=== PATIENT | male | born 1980 | race Caucasian/White ===

== ENCOUNTER 2022-04-27 11:01 | Emergency (ER) | payer OTHER, SELFPAY ==
--- NOTE | ~2022-04-27 | CT_ITS ---
EXAMINATION: CT abdomen pelvis wo con DATE: 04/27/2022 11:58 INDICATION: Left flank pain. TECHNIQUE: Computed tomography (CT) of the abdomen and pelvis was performed without intravenous contr ast. Automated exposure control and iterative reconstruction technique were employed. The dose-length product was 309.31 mGy-cm. COMPARISON: CT abdomen and pelvis 03/21/2016 FINDINGS: The visualized portions of the lung bases are clear without pneumonia or pleural effusion. The heart size is normal. No pericardial effusion. The liver and gallbladder are normal. Calcificatio ns in the spleen are consistent with old granulomatous disease. The pancreas and adrenal glands are n ormal. Right kidney is normal. There is mild left hydronephrosis and hydroureter. There is asymmetric edema in left perinephric space. There is no urolithiasis. There is diverticulosis of the colon with out evidence of diverticulitis. The appendix is normal. There are no pathologically enlarged lymph no leilani. There is no free intraperitoneal fluid. There is mild lumbar spondylosis. IMPRESSION: 1. Mild left hydronephrosis and hydroureter. No urolithiasis. Reviewed, dictated and finalized at location A. SORTER
[2022-04-27 11:01] VITALS: BP 148/99; PULSE 79; RESP 16; TEMP 36.6; O2SAT 96
--- NOTE | 2022-04-27 11:17 | ED.ABDPAIN ---
HPI - Abdominal Pain General Chief Complaint: Urogenital-Male Stated Complaint: kidney stones Time Seen by Provider: 04/27/22 11:16 Source: patient History of Present Illness HPI narrative: 42-year-old male with a history of kidney stones presents to the ER with 6 hour history of -- left flank pain radiating to the left groin. Pain is colicky and comes on intermittently. No exacerbating or relieving factors. Nausea without any vomiting. No diarrhea. No fever MD elicited complaint: abdominal pain and flank pain Pertinent past history: kidney stones Onset (ago): hour(s) ( started 6 hours ago.) Pain Consistency: intermittent Location: L flank Severity: severe Quality: cramping Radiation: L flank Migration to: L flank ( Migrates to left groin) Exacerbating factors: nothing Relieving factors: nothing Related Data Home Medications Medication Instructions Recorded Confirmed No Home Medications 04/27/22 04/27/22 Allergies Allergy/AdvReac Type Severity Reaction Status Date / Time NKDA Allergy Mild Unknown Uncoded 04/27/22 11:14 Review of Systems Review of Systems: All systems reviewed & are unremarkable except as noted in HPI and below Constitutional: Constitutional: Reports as per HPI and Reports no additional constitutional complaints Eyes: Eyes: Reports as per HPI and Reports no additional eye complaints ENT: Reports system reviewed and no additional complaints, except as documented and Reports as per HPI Cardiovascular: Cardiovascular: Reports as per HPI and Reports no additional cardiovascular complaints Respiratory: Respiratory: Reports as per HPI and Reports no additional respiratory complaints Gastrointestinal: Gastrointestinal: Reports as per HPI and Reports no additional gastrointestinal complaints Genitourinary: Genitourinary: Reports no additional male genitourinary complaints and Reports as per HPI Comments: left flank pain Musculoskeletal: Musculoskeletal: Reports no additional musculoskeletal complaints and Reports as per HPI Integumentary/Breasts: Skin/Breast: Reports system reviewed and no additional complaints, except as docu and Reports as per HPI Neurologic: Reports system reviewed and no additional complaints, except as documented and Reports as per HPI Psychiatric: Psychiatric: Reports no additional psychiatric complaints and Reports as per HPI Endocrine: Endocrine: Reports no additional endocrine complaints and Reports as per HPI Hematologic/Lymphatic: Hematologic/Lymphatic: Reports no additional hematologic/lymphatic complaints and Reports as per HPI Allergic/Immunologic: Allergic/Immunologic: Reports no additional allergic/immunologic complaints and Reports as per HPI PMF Past Medical History Medical History Kidney stones Exam Const: General: healthy appearing and ill appearing Nutritional Appearance: well nourished Orientation/consciousness: patient oriented x3 Limitations: no limitations HENMT: Head: normal to inspection Ears: external ears normal Face/Nose/Sinus: Normal external nose present Face and sinus: normal facial exam Mouth: Yes Normal oral and palatal mucosa present Throat: posterior oropharynx normal Eyes: Conjunctivae: conjunctivae normal Pupils: Equal, round and reactive pupils present EOM: EOMs intact bilaterally Direct Ophthalmoscopy: no photophobia Neck: Neck: normal visual inspection, no lymphadenopathy and no meningeal signs Chest: Chest palpation & inspection: normal inspection of the chest Resp: Effort & Inspection: normal respiratory effort Auscultation: clear to auscultation bilaterally Cardio: Rate: regular rate Rhythm: regular rhythm GI: Auscultation: normal bowel sounds Rectal Exam: normal sphincter tone : General: Yes CVA tenderness Other: tenderness left flank. No rigidity /rebound. Back/Spine/Pelvis: Back: no CVA tenderness Skin: General skin exam: norm
[2022-04-27] MEDS: LACTATED RINGERS 1,000 ML 999 ML IV CONT (11:31)
[2022-04-27] MEDS: KETOROLAC 30 MG/ML VIAL (*BKC) IV PUSH (11:32)
[2022-04-27] MEDS: ONDANSETRON INJ 4 MG/2 ML VIAL IV PUSH (11:33)
[2022-04-27 11:37] LABS: Basophils Absolute Auto 0.08 K/mm3 (0.00-0.10); Basophils Percent Auto 0.6 % (0.0-1.0); Eosinophils Absolute Auto 0.19 K/mm3 (0.02-0.50); Eosinophils Percent Auto 1.3 % (1.0-6.0); Hematocrit 45.4 % (40.0-54.0); Hemoglobin 14.9 g/dL (14.0-18.0); Immature Granulocyte Absolute 0.05 K/mm3 (0.00-0.00); Immature Granulocyte Percent A 0.3 % (0.0-0.0); Lymphocytes Absolute Auto 1.55 K/mm3 (1.10-4.50); Lymphocytes Percent Auto 10.7 % (18.0-42.0); Mean Corpuscular HGB Conc 32.8 g/dL (32.0-36.0); Mean Corpuscular Hemoglobin 29.7 pg (27.0-31.0); Mean Corpuscular Volume 90.6 fL (78.0-102.0); Monocytes Absolute Auto 1.54 K/mm3 (0.10-0.90); Monocytes Percent Auto 10.7 % (2.0-11.0); Neutrophils Absolute Auto 11.1 K/mm3 (1.7-7.2); Neutrophils Percent Auto 76.4 % (50.0-70.0); Platelet Count Result 190 K/mm3 (150-420); Red Blood Count 5.01 M/mm3 (4.70-6.10); Red Cell Distribution Width 12.8 % (11.6-14.4); White Blood Count 14.5 K/mm3 (4.8-10.8)
[2022-04-27 11:39] LABS: Add Urine Microscopic? YES; Appearance Urine Clear (Clear); Bilirubin Urine 1+ (Negative); Blood Urine 3+ (Negative); Color Urine Red (Yellow); Glucose Urine UA Negative (Negative); Ketones Urine Negative (Negative); Leukocyte Esterase Ur Trace (Negative); Nitrate Urine Negative (Negative); Protein Urine 2+ (Negative); Urobilinogen Urine 0.2 mg/dL (0.2-1.0)
[2022-04-27 11:44] LABS: Bacteria Urine Trace /hpf; RBC Urine >75 /hpf (0-2); WBC Urine 0-3 /hpf (0-3)
--- NOTE | 2022-04-27 11:44 | PC.NURSE ---
PT IN CT AT THIS TIME
[2022-04-27 11:51] LABS: Partial Thromboplastin Time 31.2 SEC (23.90-30.70)
[2022-04-27 11:52] LABS: Alanine Aminotransferase 33 U/L (16-63); Albumin Level 3.8 g/dL (3.4-5.0); Alkaline Phosphatase 82 U/L (46-116); Anion Gap 7 mmol/L (8-16); Aspartate Amino Transferase 24 U/L (15-37); Bilirubin,Total 0.8 mg/dL (0.00-1.00); Blood Urea Nitrogen 19 mg/dL (7-18); Calcium 8.5 mg/dL (8.5-10.1); Carbon Dioxide 30 mmol/L (21-32); Chloride 104 mmol/L (98-108); Estimated CRCL calculation 67 ml/min; Estimated Glomerular Filt Rate > 60; Glucose 115 mg/dL (70-99); Lipase 63 U/L (73-393); Osmolality Calculated 295 mOsm/kg (285-295); Potassium 4.1 mmol/L (3.5-5.1); Sodium 141 mmol/L (136-145); Total Protein 7.6 g/dL (6.4-8.2)
--- NOTE | 2022-04-27 12:27 | PC.NURSE ---
PT REPORTS PAIN HAS GREATLY IMPROVED. NAD NOTED UPON REASSESSMENT. AT BEDSIDE. PT IS AWAITING RESULTS. WILL CONTINUE TO MONITOR.
[2022-04-27 12:40] VITALS: BP 132/85; PULSE 88; RESP 16; O2SAT 99
== END 2022-04-27 12:40 | disposition home or self-care (01) ==
PROVIDERS: Emergency Provider Internal Medicine Critical Care Medicine
DX: N20.0 Calculus of kidney (principal)
CPT/HCPCS: 36415; 74176; 80053; 81001; 83605; 83690; 85025; 85730; 96361; 96374; 96375; 99284; J1885; J2405; J7120

== ENCOUNTER 2023-03-07 19:36 | Emergency (ER) | payer OTHER, SELFPAY ==
--- NOTE | ~2023-03-07 | XR_ITS ---
EXAMINATION: XR chest 2V DATE: 03/07/2023 19:57 INDICATION: [place] weird. Hypertension. TECHNIQUE: Frontal and lateral views of the chest were obtained. COMPARISON: CT abdomen and pelvis 04/27/2022 FINDINGS: There is no pneumonia, pleural effusion, or pneumothorax. The heart size is normal. IMPRESSION: 1. No acute cardiopulmonary disease. Reviewed, dictated and finalized at location E.
[2023-03-07 19:41] VITALS: BP 160/111; PULSE 100; RESP 20; TEMP 37; O2SAT 98
--- NOTE | 2023-03-07 19:42 | ECG_ITS ---
Measurements Intervals [place] Rate: 98 P: -8 [place]: 162 QRS: 62 QRSD: 101 T: 36 QT: 360 QTc: 462 Interpretive Statements SINUS RHYTHM VOLTAGE CRITERIA FOR LVH [MEETS CRITERIA IN ONE OF: R(aVL), S(V1), R(V5), R(V5/V6)+S(V1)] NONSPECIFIC T-WAVE ABNORMALITY NO PREVIOUS ECG AVAILABLE FOR COMPARISON Electronically Signed On 03-08-2023 19:29:56 CDT by Zainab Smith M.D.
[2023-03-07 20:00] LABS: Basophils Absolute Auto 0.06 K/mm3 (0.00-0.10); Basophils Percent Auto 0.6 % (0.0-1.0); Eosinophils Absolute Auto 0.24 K/mm3 (0.02-0.50); Eosinophils Percent Auto 2.4 % (1.0-6.0); Immature Granulocyte Absolute 0.04 K/mm3 (0.00-0.00); Immature Granulocyte Percent A 0.4 % (0.0-0.0); Lymphocytes Absolute Auto 3.09 K/mm3 (1.10-4.50); Lymphocytes Percent Auto 30.6 % (18.0-42.0); Mean Corpuscular HGB Conc 33.3 g/dL (32.0-36.0); Mean Corpuscular Volume 89.9 fL (78.0-102.0); Mean Platelet Volume 9.3 fl (8.7-11.0); Monocytes Absolute Auto 1.19 K/mm3 (0.10-0.90); Monocytes Percent Auto 11.8 % (2.0-11.0); Neutrophils Absolute Auto 5.5 K/mm3 (1.7-7.2); Neutrophils Percent Auto 54.2 % (50.0-70.0); Platelet Count Result 196 K/mm3 (150-420); Red Blood Count 4.67 M/mm3 (4.70-6.10); Red Cell Distribution Width 13.2 % (11.6-14.4); White Blood Count 10.1 K/mm3 (4.8-10.8)
[2023-03-07] MEDS: cloNIDine HCL 0.1 MG TABLET PO (20:12)
[2023-03-07 20:19] LABS: Alanine Aminotransferase 31 U/L (16-63); Albumin Level 3.9 g/dL (3.4-5.0); Alkaline Phosphatase 67 U/L (46-116); Anion Gap 9 mmol/L (8-16); Aspartate Amino Transferase 20 U/L (15-37); Bilirubin,Total 0.5 mg/dL (0.00-1.00); Blood Urea Nitrogen 13 mg/dL (7-18); Calcium 8.9 mg/dL (8.5-10.1); Carbon Dioxide 26 mmol/L (21-32); Chloride 108 mmol/L (98-108); Estimated CRCL calculation 77 ml/min; Estimated Glomerular Filt Rate > 60; Glucose 120 mg/dL (70-99); Osmolality Calculated 297 mOsm/kg (285-295); Potassium 3.7 mmol/L (3.5-5.1); Sodium 143 mmol/L (136-145); Total Protein 7.3 g/dL (6.4-8.2); Troponin I 56.1 ng/L (0.00-60.4)
--- NOTE | 2023-03-07 20:19 | ED.GENADULT ---
HPI - General Adult General Chief complaint: Headache Stated complaint: High BP Source: patient Mode of arrival: ambulatory Limitations: no limitations History of Present Illness HPI narrative: patient is a 43-year-old male with headaches lately in the past couple weeks as well as some blurry vision. Patient has high blood pressure known but has not taken any medicine throughout his life. Patient started feeling uneasy this evening and flushed so he came to the ER for blood pressure medication. No chest pain or shortness of breath. Onset (ago): hour(s) Location: head and face Severity: mild Quality: other ( Flush) Pain Consistency: constant Relieving factors: none Exacerbating factors: none Associated symptoms: headaches Treatments prior to arrival: none Related Data Allergies Allergy/AdvReac Type Severity Reaction Status Date / Time NKDA Allergy Mild Unknown Uncoded 04/27/22 11:14 Review of Systems Review of Systems: All systems reviewed & are unremarkable except as noted in HPI and below Constitutional: Constitutional: Reports no additional constitutional complaints Eyes: Eyes: Reports no additional eye complaints ENT: Reports system reviewed and no additional complaints, except as documented Cardiovascular: Cardiovascular: Reports no additional cardiovascular complaints Respiratory: Respiratory: Reports no additional respiratory complaints Gastrointestinal: Gastrointestinal: Reports no additional gastrointestinal complaints Genitourinary: Genitourinary: Reports no additional male genitourinary complaints Musculoskeletal: Musculoskeletal: Reports no additional musculoskeletal complaints Integumentary/Breasts: Skin/Breast: Reports system reviewed and no additional complaints, except as docu Neurologic: Reports system reviewed and no additional complaints, except as documented Psychiatric: Psychiatric: Reports no additional psychiatric complaints Endocrine: Endocrine: Reports no additional endocrine complaints Hematologic/Lymphatic: Hematologic/Lymphatic: Reports no additional hematologic/lymphatic complaints Allergic/Immunologic: Allergic/Immunologic: Reports no additional allergic/immunologic complaints [facility] Past Medical History Medical History Kidney stones Exam Const: General: cooperative, healthy appearing and comfortable HENMT: Head: normal to inspection, No palpable skull fracture present and normocephalic Eyes: General: appearance normal, both eyes and all related structures Visual De Paz: normal visual de paz by confrontation Alignment and Position: alignment normal Chest: Chest palpation & inspection: normal inspection of the chest and normal palpation of entire chest wall Resp: Effort & Inspection: normal respiratory effort and able to speak in complete sentences Auscultation: clear to auscultation bilaterally Cardio: Jugular venous distension: no JVD Palpation: normal PMI Rate: regular rate Rhythm: regular rhythm Heart sounds: S1 normal heart sound present and S2 normal heart sound present GI: Inspection: normal to inspection GI Palp: No abdominal tenderness, No Abdominal aortic bruit present, Yes Soft to palpation, No Firmness to palpation present (GI) and No Tenderness to palpation present (GI) Back/Spine/Pelvis: Back: no CVA tenderness Skin: General skin exam: normal color, no rashes or lesions noted and elasticity normal Neuro: General: oriented to person, oriented to place, oriented to time, patient oriented x3, gait normal, tone normal, moves all extremities, Normal light touch and pain sensation, no meningeal signs, no focal motor deficits, CN's II-XI intact bilaterally and normal sensation to monofilament Extrem: General: normal to inspection, full ROM and capillary refill normal Psych: Appearance: grossly normal and well kempt Mental Status: mental status grossly normal Speech and movement: Normal speech and
[2023-03-07 20:22] VITALS: BP 160/108; PULSE 100; RESP 20; TEMP 37; O2SAT 96
[2023-03-07 20:50] VITALS: BP 140/100; PULSE 90; RESP 20; O2SAT 96
[2023-03-07 21:15] VITALS: BP 140/90; PULSE 80; RESP 20; O2SAT 98
== END 2023-03-07 21:39 | disposition left against medical advice (07) ==
PROVIDERS: Emergency Provider Emergency Medicine
DX: I10 Essential (primary) hypertension (principal)
CPT/HCPCS: 36415; 71046; 80053; 84484; 85025; 93005; 99284; A9270

== ENCOUNTER 2023-04-11 14:28 | Emergency (ER) | payer OTHER, SELFPAY ==
[2023-04-11 14:28] VITALS: BP 140/98; PULSE 60; RESP 16; TEMP 35.8; O2SAT 99
[2023-04-11] MEDS: TETANUS,DIPHTHERIA,AC PERTUSSIS ADULT 0.5 ML (ADACEL) IM (14:59)
--- NOTE | 2023-04-11 15:21 | ED.WOUNDLAC ---
HPI - Wound/Laceration General Chief Complaint: Wound/Laceration Stated Complaint: right arm laceration Time Seen by Provider: 04/11/23 14:47 Source: patient Mode of arrival: ambulatory Limitations: no limitations History of Present Illness HPI narrative: PATIENT WAS ABOUT TO FALL AND TRIED TO CATCH HIMSELF, LACERATED THE BACK OF THE RIGHT ARM ON THE GO-DAUGHTER. NO OTHER INJURIES. PATIENT DID NOT FALL TO THE GROUND. UNKNOWN LAST TETANUS. PATIENT DROVE HIMSELF TO THE EMERGENCY ROOM Related Data Home Medications Medication Instructions Recorded Confirmed No Home Medications 04/11/23 04/11/23 Allergies Allergy/AdvReac Type Severity Reaction Status Date / Time NKDA Allergy Mild Unknown Uncoded 04/11/23 14:47 Review of Systems Review of Systems: All systems reviewed & are unremarkable except as noted in HPI and below PMFSH Past Medical History Medical History Kidney stones Exam Narrative: General appearance: Well-developed, well-nourished Skin: Normal color, 3.5 cm laceration subcutaneous at the back of the right arm. Head: Normocephalic, nontraumatic Eyes: Clear conjunctiva ENT: Oropharynx normal, ears normal, nose normal Neck: Supple, nontender Chest and respiratory: Airway patent, no respiratory distress, no accessory muscle use Heart: Regular rate/rhythm Vascular: Normal peripheral pulses, normal capillary refill. Musculoskeletal: Normal range of motion, nontender back Neurologic: Alert and oriented ?3, REACTOR SERVICE OPERATOR is normal as tested, no gross motor deficit Course Vital Signs Vital signs: Vital Signs Temperature 35.8 C L 04/11/23 14:28 Pulse Rate 60 04/11/23 14:28 Respiratory Rate 16 04/11/23 14:28 Blood Pressure 140/98 H 04/11/23 14:28 Pulse Oximetry 99 04/11/23 14:28 Oxygen Delivery Room Air 04/11/23 14:28 Temperature 35.8 C L 04/11/23 14:28 Pulse Rate 60 04/11/23 14:28 Respiratory Rate 16 04/11/23 14:28 Blood Pressure 140/98 H 04/11/23 14:28 Pulse Oximetry 99 04/11/23 14:28 Oxygen Delivery Room Air 04/11/23 14:28 Procedures Laceration Laceration 1: Date: 04/11/23 Time: 12:38 Site: upper extremity Side (If applicable): right Size (cm): 3.5 Description: linear and clean Depth: simple, single layer Local Anesthetic: none Pre-repair: wound explored and irrigated ====== Skin Level ====== Skin layer closed with: alessia (4 alessia) ====== Subcutaneous Layer ====== ====== Muscle Layer ====== ====== Tendon Layer ====== Dressing: Topical Neosporin, patient tolerated the procedure well Discharge Plan Discharge Clinical Impression: Laceration of right upper arm Patient Disposition: Home, Self-Care Condition: Stable Instructions: Laceration (ED) Additional Instructions: RETURN IF SYMPTOMS ARE WORSENING , CALL YOUR FAMILY PHYSICIAN FOR APPOINTMENT, TAKE TYLENOL NEEDED FOR ACHES AND PAIN, CONTINUE HOME MEDICATIONS., REMOVED THE ALESSIA IN 10 DAYS, TOPICAL NEOSPORIN T.I.D. 48 HOURS Prescriptions: No Action No Home Medications Follow-up/Referrals: UNKNOWN,DOCTOR [Primary Care Provider] - Herrera Curry, RN [Emergency Nurse] - 04/14/23
== END 2023-04-11 15:30 | disposition home or self-care (01) ==
PROVIDERS: Emergency Provider Emergency Medicine
DX: S41.111A Laceration without foreign body of right upper arm, initial encounter (principal); W01.10XA Fall on same level from slipping, tripping and stumbling with subsequent striking against unspecified object, initial encounter; Z23 Encounter for immunization
CPT/HCPCS: 12002; 90471; 90715; 99282

== ENCOUNTER 2024-05-06 14:00 | Emergency (ER) | payer OTHER, SELFPAY ==
[2024-05-06] VITALS (26 sets, daily range): BP systolic 127–161; BP diastolic 89–119; PULSE 81–110; RESP 16–26; TEMP 36.2–37; O2SAT 97–100
--- NOTE | ~2024-05-06 | XR_ITS ---
EXAMINATION: XR shoulder LT min 2V DATE: 05/06/2024 14:36 INDICATION: Left shoulder pain. TECHNIQUE: 4 views of left shoulder were obtained. COMPARISON: None. FINDINGS: Alignment is normal. No fracture. There is mild osteoarthritis of the acromioclavicular huyen nt. Glenohumeral joint is normal. IMPRESSION: 1. Mild acromioclavicular joint osteoarthritis. Reviewed, dictated and finalized at location A. 4TH GRADE MATH TEACHER
--- NOTE | ~2024-05-06 | CT_ITS ---
EXAMINATION: CTA chest PE protocol DATE: 05/06/2024 15:54 INDICATION: Shortness of breath. Pulmonary embolism. TECHNIQUE: Computed tomography angiography (CTA) of the chest was performed with 100 mL Omnipaque-350 intravenous contrast timed to evaluate the pulmonary arteries. Coronal maximum intensity projection 3D-reconstructions were created by the technologist. Automated exposure control and iterative reconst ruction technique were employed. The dose-length product was 567.82 mGy-cm. COMPARISON: None. FINDINGS: The lungs demonstrate smooth septal thickening, consistent with mild pulmonary edema. There is a small right pleural effusion. Cardiomegaly is noted. There is a trace pericardial effusion. The re is a left-sided superior vena cava. There is no pulmonary embolus. Calcified mediastinal lymph nod es are consistent with old granulomatous disease. There is mild thoracic spondylosis. IMPRESSION: 1. No pulmonary embolus. 2. Mild pulmonary edema. 3. Small right pleural effusion. 4. Cardiomegaly. Reviewed, dictated and finalized at location A. UM REGISTRAR
--- NOTE | ~2024-05-06 | XR_ITS ---
EXAMINATION: XR chest 1V portable DATE: 05/06/2024 14:36 INDICATION: Shortness of breath. TECHNIQUE: A single frontal view of the chest was obtained. COMPARISON: Chest 2 views 03/07/2023, CT abdomen and pelvis 04/27/2022 FINDINGS: There is mild atelectasis at right lung base. No pleural effusion or pneumothorax. Cardiome otf is noted. IMPRESSION: 1. Mild atelectasis at right lung base. 2. Cardiomegaly. Reviewed, dictated and finalized at location A. RMATION SERVICES ASSISTANT
--- NOTE | 2024-05-06 14:11 | ED_ITS ---
HPI - General Adult General Chief complaint: Shortness of Breath/Dyspnea Stated complaint: shortness of breathe Time Seen by Provider: 05/06/24 14:10 Source: patient and family Mode of arrival: ambulatory History of Present Illness HPI narrative: 44 years old white male came to the emergency room by private car complaining of shortness of breath over the last 3 weeks, worse with exertion and at night before going to sleep. Patient feels like a rock in side he chest, patient is telling me that he is badly depressed lately he lost a job 1 month ago, also complaining of left shoulder discomfort for longer than 3 weeks. He denies any fever or chills or nausea or vomiting or upper respiratory symptoms. Patient does not take medicine at home, smokes cigarettes over 30 years, uses marijuana, does not drink alcohol. Patient denies family history of coronary artery disease, Last time was seen by a family physician years ago. Related Data Home Medications Medication Instructions Recorded Confirmed No Home Medications 04/11/23 05/06/24 Allergies Allergy/AdvReac Type Severity Reaction Status Date / Time NKDA Allergy Mild Unknown Uncoded 05/06/24 15:00 Review of Systems Review of Systems: All systems reviewed & are unremarkable except as noted in HPI and below PMFSH Past Medical History Medical History Kidney stones Exam Narrative: General appearance: Well-developed, well-nourished Skin: Normal color Head: Normocephalic, nontraumatic Eyes: Clear conjunctiva ENT: Oropharynx normal, ears normal, nose normal Neck: Supple, nontender Chest and respiratory: Airway patent, no respiratory distress, no accessory muscle use Heart: Regular rate/rhythm Abdomen: Soft, nontender, no organomegaly, quiet bowel sounds Vascular: Normal peripheral pulses, normal capillary refill. Musculoskeletal: Normal range of motion, nontender back Neurologic: Alert and oriented ?3, DATASTAGE ARCHITECT is normal as tested, no gross motor deficit Course Vital Signs Vital signs: Vital Signs Pulse Oximetry 100 05/06/24 14:00 Oxygen Delivery Room Air 05/06/24 14:00 Temperature 36.2 C L 05/06/24 14:01 Pulse Rate 109 H 05/06/24 14:01 Respiratory Rate 22 H 05/06/24 14:01 Blood Pressure 161/111 H 05/06/24 14:01 Pulse Oximetry 100 05/06/24 14:01 Oxygen Delivery Room Air 05/06/24 14:01 Medical Decision Making MDM Narrative Medical decision making narrative: patient came to the ED with shortness of breath on exertion for the last 3 weeks, left shoulder pain, intermittent chest discomfort. also complaining of severe depression lately of losing his job 1 month ago Vital signs showing blood pressure 161/111, heart rate 109, respiration 22, saturation 100% on room air Physical examination showing anxious patient otherwise insignificant Differential diagnosis include depression, pneumonia, congestive heart failure, coronary artery disease, pulmonary embolism, stress related symptoms Blood workup today showed D-dimer of 0.82, glucose 145, troponin 87.4, BNP 4286 EKG showed normal sinus rhythm with nonspecific ST T-wave abnormalities, LVH criteria Chest x-ray showed no acute abnormality, left shoulder x-ray showed no acute abnormalities Differential Diagnosis Differential Diagnosis: as above Vital Signs Vital Signs: Vital Signs Pulse Oximetry 100 05/06/24 14:00 Oxygen Delivery Room Air 05/06/24 14:00 Temperature 36.2 C L 05/06/24 14:01 Pulse Rate 109 H 05/06/24 14:01 Respiratory Rate 22 H 05/06/24 14:01 Blood Pressure 161/111 H 05/06/24 14:01 Pulse Oximetry 100 05/06/24 14:01 Oxygen Delivery Room Air 05/06/24 14:01 Lab Data 05/06/24 14:34 05/06/24 14:34 Labs: Lab Results 05/06/24 Range/Units 14:34 WBC 10.3 (4.8-10.8) K/mm3 RBC 5.17 (4.70-6.10) M/mm3 Hgb 15.3 (14.0-18.0) g/dL Hct 46.2 (40.0-54.0) % MCV 89.4 (78.0-102.0) fL MCH 29.6 (27.0-31.0) pg MCHC 33.1 (32-36) g/dL RDW 13.8 (11.6-14.4) % Plt Count 208 (150-420) K/mm3 MPV 9.2 (8.7-11.0) fl Immature Gran % (Auto) 0.4 H (0.0-0.0) % Neut % (Auto) 65.6 (50.0-70.0) % Lymph % (Auto) 22.8 (18.0-42.0) % [place] % (Auto) 8.6 (2.0-11.0) % Eos % (Auto) 2.0 (1.0-6.0) % Baso % (Auto) 0.6 (0.0-1.0) % Lymph # (Auto) 2.35 (1.10-4.50) K/mm3 [place] # (Auto) 0.89 (0.10-0.90) K/mm3 Eos # (Auto) 0.21 (0.02-0.50) K/mm3 Baso # (Auto) 0.06 (0.00-0.10) K/mm3 Abs Immat Gran (auto) 0.04 H (0.00-0.00) K/mm3 Absolute Neuts (auto) 6.74 (1.70-7.20) K/mm3 Absolute Nucleated RBC 0.00 (0.00-0.00) K/mm3 Nucleated RBC % 0.0 (0-0.0) % PT 12.0 (9.50-12.1) Seconds INR 1.1 APTT 27.5 (23.9-30.70) Sec D-Dimer 0.82 H* (0.19-0.50) mg/L Sodium 139 (136-145) mmol/L Potassium 4.2 (3.5-5.1) mmol/L Chloride 104 (98-108) mmol/L Carbon Dioxide 30 (21-32) mmol/L Anion Gap 5 (4-12) mmol/L BUN 18 (7-18) mg/dL Creatinine 1.26 (0.70-1.30) mg/dL Estim Creat Clear Calc 76 ml/min Estimated GFR > 60 (59 - ) Glucose 145 H (70-99) mg/dL Calculated Osmolality 292 (285-295) mOsm/kg Calcium 9.0 (8.5-10.1) mg/dL Total Bilirubin 0.9 (0.00-1.00) mg/dL AST 19 (15-37) U/L ALT 29 (16-63) U/L Alkaline Phosphatase 86 (46-116) U/L Troponin I 87.4 H* (0.00-60.4) ng/L NT-Pro-B Natriuret Pep 4286 H (0-125) pg/mL Total Protein 7.5 (6.4-8.2) g/dL Albumin 3.6 (3.4-5.0) g/dL Imaging Data Radiologist's impression: Impressions Chest X-Ray 05/06/24 14:37 IMPRESSION: 1. Mild atelectasis at right lung base. 2. Cardiomegaly. Shoulder X-Ray 05/06/24 14:38 IMPRESSION: 1. Mild acromioclavicular joint osteoarthritis. ECG Data EKG #1: Attestation: I personally reviewed and interpreted this ECG as follows: ECG completion date: 05/06/24 Interpretation: Sinus tachycardia at 103 beats per minute, left atrial enlargement, nonspecific ST T-wave abnormality, poor R-wave progression indeterminate septal infarction, LVH criteria Discharge Plan Discharge Clinical Impression: Non-STEMI (non-ST elevated myocardial infarction) Patient Disposition: Acute Care Hospital Condition: Stable Prescriptions: No Action No Home Medications Follow-up/Referrals: UNKNOWN,DOCTOR [Primary Care Provider] -
--- NOTE | 2024-05-06 14:21 | ECG_ITS ---
Test Date: 2024-05-06 14:37:37 Measurements Intervals [place] Rate: 103 P: 24 [place]: 148 QRS: 86 QRSD: 110 T: -21 QT: 366 QTc: 480 Interpretive Statements SINUS TACHYCARDIA POSSIBLE LEFT ATRIAL ENLARGEMENT [-0.1mV P-WAVE IN V1/V2] NONSPECIFIC ST & T-WAVE ABNORMALITY No previous ECG available for comparison Electronically Signed On 05-07-2024 14:56:46 VETERINARY RECEPTIONIST by Bettina Suarez M.D.
[2024-05-06 14:41] LABS: Basophils Absolute Auto 0.06 K/mm3 (0.00-0.10); Basophils Percent Auto 0.6 % (0.0-1.0); Eosinophils Absolute Auto 0.21 K/mm3 (0.02-0.50); Hematocrit 46.2 % (40.0-54.0); Hemoglobin 15.3 g/dL (14.0-18.0); Immature Granulocyte Absolute 0.04 K/mm3 (0.00-0.00); Immature Granulocyte Percent A 0.4 % (0.0-0.0); Lymphocytes Absolute Auto 2.35 K/mm3 (1.10-4.50); Lymphocytes Percent Auto 22.8 % (18.0-42.0); Mean Corpuscular HGB Conc 33.1 g/dL (32-36); Mean Corpuscular Hemoglobin 29.6 pg (27.0-31.0); Mean Corpuscular Volume 89.4 fL (78.0-102.0); Mean Platelet Volume 9.2 fl (8.7-11.0); Monocytes Absolute Auto 0.89 K/mm3 (0.10-0.90); Monocytes Percent Auto 8.6 % (2.0-11.0); Neutrophils Absolute Auto 6.74 K/mm3 (1.70-7.20); Neutrophils Percent Auto 65.6 % (50.0-70.0); Platelet Count Result 208 K/mm3 (150-420); Red Blood Count 5.17 M/mm3 (4.70-6.10); Red Cell Distribution Width 13.8 % (11.6-14.4); White Blood Count 10.3 K/mm3 (4.8-10.8)
[2024-05-06 14:56] LABS: INR 1.1; Partial Thromboplastin Time 27.5 Sec (23.9-30.70)
[2024-05-06 14:58] LABS: D Dimer 0.82 mg/L (0.19-0.50)
[2024-05-06 15:05] LABS: Alanine Aminotransferase 29 U/L (16-63); Albumin Level 3.6 g/dL (3.4-5.0); Alkaline Phosphatase 86 U/L (46-116); Anion Gap 5 mmol/L (4-12); Aspartate Amino Transferase 19 U/L (15-37); Bilirubin,Total 0.9 mg/dL (0.00-1.00); Blood Urea Nitrogen 18 mg/dL (7-18); Carbon Dioxide 30 mmol/L (21-32); Chloride 104 mmol/L (98-108); Estimated CRCL calculation 76 ml/min; Estimated Glomerular Filt Rate > 60; Glucose 145 mg/dL (70-99); NT Pro B Type Natriuretic Pept 4286 pg/mL (0-125); Osmolality Calculated 292 mOsm/kg (285-295); Potassium 4.2 mmol/L (3.5-5.1); Sodium 139 mmol/L (136-145); Total Protein 7.5 g/dL (6.4-8.2)
[2024-05-06 15:06] LABS: Troponin I 87.4 ng/L (0.00-60.4)
[2024-05-06] MEDS: ASPIRIN 81 MG CHEWABLE TABLET 324 MG PO (15:27)
[2024-05-06] MEDS: METOPROLOL TARTRATE INJ 5 MG/5 ML VIAL IV PUSH ×2 (15:30→16:17)
== END 2024-05-06 18:00 | disposition short-term general hospital (02) ==
PROVIDERS: Emergency Provider Emergency Medicine
DX: I21.4 Non-ST elevation (NSTEMI) myocardial infarction (principal)
CPT/HCPCS: 36415; 71045; 71275; 73030; 80053; 83880; 84484; 85025; 85380; 85610; 85730; 93005; 96374; 96376; 99285; A9270; Q9967

== ENCOUNTER 2024-05-06 19:19 | Inpatient (IN) | payer SELFPAY ==
--- NOTE | ~2024-05-06 | NM_ITS ---
EXAMINATION: NM jenny stress w perfusion DATE: 05/07/2024 13:59 INDICATION: Chest pain. TECHNIQUE: Rest images were obtained following intravenous administration of 10 mCi Tc99m tetrofosmin (Myoview). The patient was infused intravenously with Lexiscan (regadenoson). Then, 31.7 mCi Tc99m t etrofosmin (Myoview) was administered intravenously, and supine and prone stress images were obtained . Data was reconstructed into short axis and horizontal and vertical long axis SPECT images. Gated SP ECT images were also obtained. COMPARISON: None. FINDINGS: There is a small, mild, fixed perfusion defect involving apical to mid inferior wall of lef t ventricle, consistent with infarct. No reversible component to suggest ischemia. There is global hy pokinesis.. Left ventricular ejection fraction measures 24%. IMPRESSION: 1. Small area of mild infarct involving apical to mid inferior wall of left ventricle. 2. Global hypokinesis with left ventricular ejection fraction measuring 24%. Reviewed, dictated and finalized at location A. CTOR OF CONSUMER AFFAIRS IMPRESSION: 1. Small area of mild infarct involving apical to mid inferior wall of left abdulaziz tricle. 2. Global hypokinesis with left ventricular ejection fraction measuring 24%.
[2024-05-06 18:35] VITALS: BP 129/95; PULSE 75; RESP 18; TEMP 36.6; O2SAT 100
[2024-05-06 18:48] VITALS: BMI 30.5
--- NOTE | 2024-05-06 18:48 | ADMGEN ---
This patient, Salvador Weeks, was admitted to IMU Room 200-01 on 04/06/24 at 1835. Patient/family oriented to hospital policies and general routines including ID bracelet, bed and alarms, visiting hours, pain management, procedures, bathroom and other care routines, personal items, smoking policy, room service/diet, and visiting hours. Information on how to activate the Rapid Response Team has been discussed. Patient/Family are encouraged to report perceived risks to care and to ask questions if they do not understand what they are told or what they should do.
--- NOTE | 2024-05-06 19:19 | P.HP_ITS ---
H&P: HPI History of Present Illness Date/Time: 05/06/24 19:19 Chief Complaint: Shortness of Breath Narrative: 44 y/o M presents here with shortness of breath with PMH of kidney stones, previous substance abuse (meth, heroin, Xanax), seizure secondary to Xanax abuse in 2013, and hypertension. The patient presented to [place] ED from home for further evaluation of shortness of breath. He reports onset approximately 3 weeks ago. Shortness of breath is primarily occurring when he tries to go to sleep (could be upright or laying flat) and with exertion (example given was walking out to his truck and back). Shortness of breath was precipitated by 3 weeks of left shoulder discomfort that he described as achy, worsened with movement, and nonradiating. He is also experiencing some associated chest discomfort with the shortness of breath which he developed a few days ago, has primarily had only one severe episode. He describes this as elephant sitting on his chest , lasted 20 minutes, nonradiating, occurred with severe shortness of breath, and was alleviated with walking around. Patient did not trial any home medications for the symptoms. Patient is also reporting that he has been more fatigued, unsure if this is related to depression related to a recent loss of his job or related to whatever is causing the shortness of breath. He has also reported 10 lbs of weight gain in the last month. He is currently a smoker for the past 30 years, 1 PPD. Endorsing marijuana use and has had some meth use (PO) in the last month. Was using the meth to help resolve his shortness of breath. Denies alcohol use. Denies any personal history or family history of coronary artery disease. The patient has known hypertension for which he has never taken medication for this despite his diagnosis. Does not follow regularly with a primary care provider. Initial VS at presentation: 97.1, HR 109, RR 22, 161/111, and 100% on RA. ED workup showed: No leukocytosis, no anemia, normal coags, elevated D-dimer, creatinine 1.26 and GFR >60, glucose 145, high sensitivity troponin 87.4, BNP 4286. CXR showed mild atelectasis at the right lung base and cardiomegaly. Shoulder XR (L) showed mild acromioclavicular joint osteoarthritis. Chest CTA showed no PE, mild pulmonary edema, small right pleural effusion, and cardiomegaly. Review of Systems Review of Systems: All systems reviewed & are unremarkable except as noted in HPI and below [facility] Past Medical History Medical History (Updated 05/06/24 @ 22:42 by Maddy Rankin APRN) Hypertension Kidney stones 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, 2014 Substance abuse previous methamphetamine, heroin, and Xanax abuse/use Family History Family History Mother Acute myocardial infarction Social History Social History Smoking packs per day: 0.5 Smoking cigarettes per day: 10.0 Years smoked: 30 Smoking pack-years: 15.00 Smoking status: Current every day smoker Tobacco type: cigarettes Second hand tobacco smoke exposure: Yes Meds Home Medications and Allergies Home Medications Medication Instructions Recorded Confirmed Type No Home Medications 04/11/23 05/06/24 History Allergies Allergy/AdvReac Type Severity Reaction Status Date / Time NKDA Allergy Mild Unknown Uncoded 05/06/24 17:27 Exam Const: General: comfortable and no acute distress Other: , male, nontoxic appearance HENMT: Face/Nose/Sinus: Normal nares present Mouth: Yes moist mucous membranes Other: Poor dentition Eyes: General: appearance normal, both eyes and all related structures Sclera: sclerae normal Pupils: Equal, round and reactive pupils present EOM: EOMs intact bilaterally Resp: Effort & Inspection: normal respiratory effort Auscultation: clear to auscultation bilaterally Cardio: Rate: regular rate Rhythm: regular rhythm Other: S1-S2 present without murmur, rub, ectopy GI: Other: Abdomen soft, rounded, nontender. Normoactive bowel sounds in all quadrants. Skin: General skin exam: normal color and no rashes or lesions noted Wounds: no wounds Neuro: General: gait normal Speech: normal speech Motor exam (neuro): 5/5 motor strength present throughout Sensory Exam: normal sensation Other: A&O x4 Extrem: General: normal to inspection Psych: Mental Status: mental status grossly normal Affect: normal affect Other: Good insight and judgment, pleasant Assessment and Plan Assessment and plan (1) Non-STEMI (non-ST elevated myocardial infarction): Code(s): I21.4 - Non-ST elevation (NSTEMI) myocardial infarction Status: Acute Assessment and Plan: - EKG, initial: Sinus tachycardia (rate 103), possible left atrial enlargement, nonspecific ST and T-wave abnormality. Awaiting formal read. - repeat EKG with 3 are troponin ordered - CXR: Mild atelectasis at the right lung base and cardiomegaly - Troponin: 87.4 (high sensitivity) -> 0.039, 3rd troponin ordered - ASA 324 given in ED -> 81 mg daily - SL nitro PRN - start metoprolol tartrate 25 mg PO BID - cardiology consulted, awaiting recs - add lipid panel and A1c - no stress test or echo on file - telemetry monitoring (2) CHF (congestive heart failure): Qualifiers: Heart failure chronicity: acute Heart failure type: unspecified Qualified Code(s): I50.9 - Heart failure, unspecified Code(s): I50.9 - Heart failure, unspecified Status: Suspected Assessment and Plan: - chest CTA: 1. No pulmonary embolus. 2. Mild pulmonary edema. 3. Small right pleural effusion. 4. Cardiomegaly. - BNP 4286 - no echo on file, ordered - started on Lasix 40 mg IVP daily - monitor I&Os and daily weights - trend renal function - suspect shortness of breath is secondary to mild pulmonary edema/volume overload (3) Hypertension: Qualifiers: Hypertension type: unspecified Qualified Code(s): I10 - Essential (primary) hypertension Code(s): I10 - Essential (primary) hypertension Status: Acute Assessment and Plan: - chronic, but has been off medication for some time - hydralazine 10 mg IVP p.r.n. for BP greater than 180/90 - start metoprolol tartrate 25 mg b.i.d. - cardiology consulted - monitor (4) Elevated glucose: Code(s): R73.09 - Other abnormal glucose Status: Acute Assessment and Plan: - initial glucose 145 - A1c added Plan Diet: Heart healthy, NPO at midnight GI Prophylaxis: Not currently indicated DVT Prophylaxis: SCDs Lines: Peripheral Code Status: Full code Quality VTE Prophylaxis VTE prophylaxis: mechanical ordered Hospitalist MIPS Advance Care Plan I have confirmed that the patient's Advanced Care Plan is present, code status is documented, or surrogate decision maker is listed in patient medical record.: Yes Medication Reconciliation I have utilized all available resources to obtain, update and review the patients current medications (includes all prescriptions, OTC, herbals, cannabis, and nutritional supplements).: Yes
[2024-05-06 19:27] VITALS: BMI 30.4
--- NOTE | 2024-05-06 19:40 | ECG_ITS ---
Test Date: 2024-05-06 20:08:08 Measurements Intervals [place] Rate: 85 P: -4 ME: 188 QRS: 39 QRSD: 108 T: 25 QT: 405 QTc: 483 Interpretive Statements SINUS RHYTHM POSSIBLE LEFT ATRIAL ENLARGEMENT SEPTAL MYOCARDIAL INFARCTION [40+ ms Q WAVE IN V1/V2], OF INDETERMINATE AGE NONSPECIFIC ST & T-WAVE ABNORMALITY Compared to ECG 05/06/2024 14:37:37 NO SIGNIFICANT CHANGES Electronically Signed On 05-07-2024 15:10:10 INTERNAL AFFAIRS COMMANDER by Bettina Suarez M.D.
[2024-05-06 20:00] VITALS: PULSE 89
[2024-05-06 20:44] VITALS: BP 138/83; PULSE 89; RESP 18; TEMP 36.5; O2SAT 100
[2024-05-06 21:10] VITALS: PULSE 91
[2024-05-06] MEDS: METOPROLOL TARTRATE 25 MG TABLET PO (21:10)
[2024-05-06] MEDS: FUROSEMIDE INJ 40 MG/4 ML VIAL IV PUSH (21:10)
[2024-05-06 21:28] LABS: Troponin I 0.039 ng/mL (0.000-0.034)
[2024-05-06 22:00] VITALS: PULSE 88
[2024-05-06 23:23] LABS: Amphetamine Screen Urine Positive (Negative); Barbiturate Screen Urine Negative (Negative); Benzodiazepines Screen Urine Negative (Negative); Cannabinoid Screen Urine Negative (Negative); Cocaine Screen Urine Negative (Negative); Methadone Screen Urine Negative (Negative); Opiate Screen Urine Negative (Negative); Phencyclidine Screen Urine Negative (Negative)
[2024-05-06 23:31] LABS: Troponin I 0.034 ng/mL (0.000-0.034)
[2024-05-06 23:47] VITALS: BP 146/90; PULSE 87; RESP 18; TEMP 36.5; O2SAT 98
[2024-05-06] MEDS: NICOTINE (*PBKC) 14 MG PATCH 1 PATCH TRANSDERM (23:49)
[2024-05-07] VITALS (16 sets, daily range): BP systolic 120–137; BP diastolic 73–93; PULSE 84–93; RESP 16–24; TEMP 36.5–36.7; O2SAT 95–98
--- NOTE | 2024-05-07 | ECHO_ITS ---
Patient Info Name: Salvador Weeks Age: 44 years : 1980 Gender: Male Ht: 69 in Wt: 207 lbs BSA: 2.16 m2 HR: 85 bpm BP: 137 / 85 mmHg Technical Quality: Poor, Fair Exam Date: 05/07/2024 8:53 AM Exam Location: Echo Lab Patient Status: Outpatient Admit Date: 05/06/2024 Staff Ordering Physician: Maddy Rankin APRN Conservation Policy Analyst: Helene Gonzales RDCS Attending Provider: Igor Barker MD Referring Physician: Massiel PATRICIA; Exam Type: CA echo dop color flow w con Study Info Indications - SOB, ELEVATED BNP Complete two-dimensional, color flow and Doppler transthoracic echocardiogram is performed with contrast to opacify the left ventricle and to improve the deliniation of the left ventricle endocardial borders. Contrast/Agitated Saline Contrast/Ag. Saline: Definity Amount: 2.00 ml Existing IV Access: Yes Reason for Poor Study: poor echocardiographic windows Summary 1. Left ventricular chamber dimension is severely enlarged. 2. There is moderate concentric increased left ventricular wall thickness. 3. Left ventricular systolic function is severely globally reduced, estimated at <15%. 4. The left ventricular diastolic function is abnormal. 5. E/e' 16 is elevated. 6. Right ventricular systolic function is reduced based on abnormal TAPSE 1.1 cm. 7. Left atrial chamber dimension is severely enlarged. 8. Right atrial chamber dimension is mildly enlarged. 9. The aortic root size at the sinus of Valsalva is borderline dilated at 4.1 cm. 10. Dilated inferior vena cava with >50% collapse upon inspiration consistent with elevated right atrial pressure, 10 mmHg. 11. There is trivial pericardial effusion. Left Ventricle Left ventricular systolic function is severely globally reduced, estimated at <15%. Left ventricular chamber dimension is severely enlarged. There is moderate concentric increased left ventricular wall thickness. The left ventricular diastolic function is abnormal. E/e' 16 is elevated. Right Ventricle Right ventricular systolic function is reduced based on abnormal TAPSE 1.1 cm. Right ventricular chamber dimension is not well visualized. Left Atria Left atrial chamber dimension is severely enlarged. Right Atria Right atrial chamber dimension is mildly enlarged. Aortic Valve The aortic valve is trileaflet. There is no aortic valve stenosis. There is no aortic valve regurgitation. Pulmonic Valve There is no pulmonic regurgitation. Mitral Valve There is no mitral valve stenosis. There is no mitral valve regurgitation. Tricuspid Valve There is no tricuspid valve regurgitation. Pericardium/Pleural There is trivial pericardial effusion. Inferior Vena Cava Dilated inferior vena cava with >50% collapse upon inspiration consistent with elevated right atrial pressure, 10 mmHg. Aorta The aortic root size at the sinus of Valsalva is borderline dilated at 4.1 cm. Left Ventricular Outflow Tract Name Value Normal LVOT 2D LVOT Diameter 2.31 cm LVOT Doppler LVOT Peak Gradient 1 mmHg LVOT Mean Gradient 0 mmHg LVOT VTI 6.57 cm LVOT VTI/AV VTI Ratio 0.48 LVOT Stroke Volume 27.47 ml LVOT CO 3.34 l/min LVOT CI 1.54 L/min/m2 Pulmonic Valve Name Value Normal RVOT Doppler RVOT Peak Gradient 1 mmHg PV Doppler PV Peak Gradient 1 mmHg PV Regurgitation Doppler AK Peak End Diastolic Velocity 155.94 cm/s Mitral Valve Name Value Normal MV Doppler MV Peak Gradient 3 mmHg MV Mean Gradient 1 mmHg MV Decel Da[place]hin 877.84 cm/s2 MV PHT 0 s MV Area (PHT) 9.08 cm2 4.00-5.00 MV Area (Cont Eq VTI) 2.66 cm2 MV Diastolic Function MV E Peak Velocity 73.32 cm/s MV A Peak Velocity 41.46 cm/s MV E/A 1.77 MV Decel Time 0 s MV Annular TDI MV E/e' (Septal) 16.11 <=8.00 MV E/e' (Lateral) 17.12 <=8.00 MV E/e' (Average) 16.62 Tricuspid Valve Name Value Normal Estimated PAP/RSVP RA Pressure 10 mmHg <=5 Aorta Name Value Normal Ascending Aorta Ao Root Diameter (MM) 4.12 cm Ao Root Diam Index (MM) 1.91 cm/m2 Aortic Valve Name Value Normal AV Doppler AV Peak Velocity 75.03 cm/s AV Peak Gradient 2 mmHg AV Mean Gradient 2 mmHg AV VTI 13.56 cm AV Area (Cont Eq VTI) 2.03 cm2 >=3.00 AV Area (Cont Eq Irwin) 2.51 cm2 AV Regurgitation 2D LVOT Area 4.18 cm2 Ventricles Name Value Normal LV Dimensions 2D/MM IVS Diastolic Thickness (2D) 1.29 cm 0.60-1.00 LVID Diastole (2D) 7.47 cm 4.20-5.80 LVIW Diastolic Thickness (2D) 1.88 cm 0.60-1.00 LVID Systole (2D) 6.37 cm 2.50-4.00 LVOT Diameter 2.31 cm LV Mass (2D Cubed) 655.55 g 88.00-224.00 LV Mass Index (2D Cubed) 0.03 g/cm2 0.00-0.01 Relative Wall Thickness (2D) 0.50 LV Fractional Shortening/Ejection Fraction 2D/MM LV Fractional Shortening (2D) 13 % 25-43 LV EF (2D Teicholz) 28 % 52-72 LV Diastolic Volume (4C MOD) 156.78 ml LV EF (4C MOD) 12 % LV Diastolic Volume (2C MOD) 190.28 ml LV EF (2C MOD) 28 % LV Diastolic Volume (BP MOD) 175.50 ml 62.00-150.00 LV Diastolic Volume Index (BP MOD) 0.08 l/m2 0.03-0.07 LV Systolic Volume (BP MOD) 142.68 ml 21.00-61.00 LV Systolic Volume Index (BP MOD) 0.07 l/m2 0.01-0.03 LV EF (BP MOD) 19 % 52-72 LV Diastolic Length (4C) 8.24 cm LV Systolic Length (4C) 7.85 cm LV Stroke Volume (4C MOD) 19.14 ml Atria Name Value Normal LA Dimensions LA Dimension (MM) 4.88 cm 3.00-4.10 LA Volume (4C A-L) 118.99 ml LA Volume (BP A-L) 129.54 ml RA Dimensions RA Area (4C) 21.29 cm2 <=18.00 Report Signatures
[2024-05-07 04:14] LABS: Basophils Absolute Auto 0.1 K/mm3 (0.0-0.1); Eosinophils Absolute Auto 0.2 K/mm3 (0-0.3); Eosinophils Percent Auto 2.1 % (0-4.4); Hematocrit 47.3 % (42.0-52.0); Hemoglobin 15.3 g/dL (14.0-18.0); Immature Granulocyte Absolute 0.04 K/mm3 (0.00-0.031); Immature Granulocyte Percent A 0.4 % (0-0.5); Lymphocytes Absolute Auto 2.71 K/mm3 (0.9-3.2); Lymphocytes Percent Auto 26.5 % (18.3-44.2); Mean Corpuscular HGB Conc 32.3 g/dl (32-36); Mean Corpuscular Hemoglobin 29.4 pg (26-34); Monocytes Absolute Auto 1.4 K/mm3 (0.1-0.6); Neutrophils Absolute Auto 5.8 K/mm3 (1.3-6.7); Platelet Count Result 231 k/mm3 (150-375); Red Cell Distribution Width 13.9 % (11.5-14.5); White Blood Count 10.2 K/mm3 (4.5-10.0)
[2024-05-07 04:32] LABS: Alanine Aminotransferase 26 U/L (6-50); Albumin Level 4.3 g/dL (3.5-5.1); Alkaline Phosphatase 65 U/L (38-126); Anion Gap 9 mmol/L (4-12); Aspartate Amino Transferase 29 U/L (17-59); Bilirubin,Total 0.9 mg/dL (0.2-1.3); Blood Urea Nitrogen 24 mg/dL (9-20); Calcium 9.1 mg/dL (8.4-10.2); Carbon Dioxide 32 mmol/L (22-30); Chloride 101 mmol/L (98-107); Cholesterol 141 mg/dL (0-200); Estimated CRCL calculation 68 ml/min; Estimated Glomerular Filt Rate 55; Glucose 102 mg/dL (65-110); HDL Direct 21 mg/dL; Sodium 142 mmol/L (137-145); Triglycerides 238 mg/dL (<150)
[2024-05-07 04:43] LABS: LDL Cholesterol Direct 80 mg/dL
--- NOTE | 2024-05-07 08:20 | EST_ITS ---
Patient Info Name: Salvador Weeks Age: 44 years : 1980 Gender: Male Ht: 69 in Wt: 202 lbs BSA: 2.14 m2 HR: 85 bpm BP: 124 / 81 mmHg Exam Date: 05/07/2024 12:45 PM Exam Location: Echo Lab Patient Status: Inpatient Admit Date: 05/06/2024 Staff Ordering Physician: Royal Bruno DO Attending Provider: Igor Barker MD Exercise Technologist: Melania Sutton RDCS Exercise Physician: Royal Bruno DO Exam Type: CA stress jenny w NM Study Info A regadenoson stress test was performed. Summary 1. 1. Negative lexiscan stress test for ischemic ST changes by ECG criteria. 2. 2. Stable hemodynamics throughout the test. 3. 3. Nuclear scan to follow and will be reported separately. Please correlate with it. 4. 4. Patient informed of the above results. Protocol: Lexiscan Stress ECG Details Stage: REST Duration (min): 0 min : 59 sec HR (bpm): 84 SBP (mmHg): 124 DBP (mmHg): 81 Stage: REST Duration (min): 6 min : 14 sec HR (bpm): 84 SBP (mmHg): 124 DBP (mmHg): 81 Stage: STAGE 1 Duration (min): 1 min : 0 sec HR (bpm): 89 SBP (mmHg): 120 DBP (mmHg): 84 Stage: RECOVERY Duration (min): 1 min : 0 sec HR (bpm): 92 SBP (mmHg): 120 DBP (mmHg): 84 Stage: RECOVERY Duration (min): 2 min : 0 sec HR (bpm): 91 SBP (mmHg): 120 DBP (mmHg): 84 Stage: RECOVERY Duration (min): 3 min : 0 sec HR (bpm): 91 SBP (mmHg): 125 DBP (mmHg): 84 Stage: RECOVERY Duration (min): 3 min : 4 sec HR (bpm): 91 SBP (mmHg): 125 DBP (mmHg): 84 Rest HR: 84 bpm Peak HR: 92 bpm Rest Sys BP: 124 mmHg Peak Sys BP: 125 mmHg Max Pred HR: 175 bpm % Max Pred HR: 53 % Target HR: 149 bpm Max RPP: 11,500 bpm*mmHg Termination Reason: Completed protocol Cardiac Symptoms: Shortness of breath Total Time: 1 min : 0 sec Rest Mathur BP: 81 mmHg Peak Mathur BP: 84 mmHg Total Dose: 0.4 mg Resting ECG Sinus rhythm. Stress ECG No ST changes. Arrhythmias None. Report Signatures
--- NOTE | 2024-05-07 08:21 | PM.CNCAR ---
Assessment and Plan Assessment and plan (1) Chest pain: Code(s): R07.9 - Chest pain, unspecified Status: Acute Assessment and Plan: Slightly troponin elevation at .039 and trending down. Obtain [employer]. (2) CHF (congestive heart failure): Qualifiers: Heart failure type: unspecified Heart failure chronicity: acute Qualified Code(s): I50.9 - Heart failure, unspecified Code(s): I50.9 - Heart failure, unspecified Status: Suspected Assessment and Plan: Acute but unsure if systolic or diastolic. He does drink 5 bottles of water a day and needs to decrease to 2-3 bottles. On Lasix 40 mg IV daily. Obtain echo. (3) Hypertension: Qualifiers: Hypertension type: unspecified Qualified Code(s): I10 - Essential (primary) hypertension Code(s): I10 - Essential (primary) hypertension Status: Acute Assessment and Plan: Stable. (4) Smoking: Code(s): F17.200 - Nicotine dependence, unspecified, uncomplicated Status: Acute Assessment and Plan: Counseled regarding smoking cessation. (5) Substance abuse: Code(s): F19.10 - Other psychoactive substance abuse, uncomplicated Status: Acute Assessment and Plan: Counseled to quit methamphetamines and other illicits. History of Present Illness History of Present Illness Consult date/time: 05/07/24 08:21 Reason For Visit: EKG Changes, Elevated Troponin Narrative: 44 yr old man presents to ER with chest pain and sob x 3 weeks. He has a history of smoking, methamphetamine use, hypertension. at bedside. States for last 3 weeks he has resting chest pain and sob intermittently. When he uses meth his sob improves. He smokes 1 ppd. States he can walk miles without any problems. Denies orthopnea, PND, edema, dizziness, palpitations. Review of Systems Review of Systems: All systems reviewed & are unremarkable except as noted in HPI and below Constitutional: Constitutional: Reports as per HPI, Denies chills and Denies fever(s) Cardiovascular: Cardiovascular: Reports as per HPI and Reports chest pain Respiratory: Respiratory: Reports as per HPI and Reports dyspnea Gastrointestinal: Gastrointestinal: Reports as per HPI and Denies abdominal pain Genitourinary: Genitourinary: Reports as per HPI and Denies dysuria Musculoskeletal: Musculoskeletal: Reports as per HPI Neurologic: Reports as per HPI, Denies dizziness and Denies syncope [facility] Past Medical History Medical History (Updated 05/07/24 @ 08:24 by Royal Bruno DO) Hypertension Kidney stones 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, 2014 Substance abuse previous methamphetamine, heroin, and Xanax abuse/use Family History Family History Mother Acute myocardial infarction Social History Social History Smoking packs per day: 0.5 Smoking cigarettes per day: 10.0 Years smoked: 30 Smoking pack-years: 15.00 Smoking status: Current every day smoker Tobacco type: cigarettes Second hand tobacco smoke exposure: Yes Meds Home Medications and Allergies Home Medications Medication Instructions Recorded Confirmed Type No Home Medications 04/11/23 05/06/24 History Allergies Allergy/AdvReac Type Severity Reaction Status Date / Time NKDA Allergy Mild Unknown Uncoded 05/06/24 17:27 Vital Signs Vital Signs - 24 hr 05/06/24 18:35 05/06/24 20:44 05/06/24 21:10 Temperature 97.9 F 97.7 F Pulse Rate 75 89 91 Respiratory Rate 18 18 Blood Pressure 129/95 H 138/83 Pulse Oximetry 100 100 Oxygen Delivery 05/06/24 23:47 05/06/24 20:00 05/07/24 00:00 Temperature 97.7 F Pulse Rate 87 Respiratory Rate 18 Blood Pressure 146/90 H Pulse Oximetry 98 Oxygen Delivery Room Air Room Air 05/06/24 20:00 05/06/24 22:00 05/07/24 00:00 Temperature Pulse Rate 89 88 86 Respiratory Rate Blood Pressure Pulse Oximetry Oxygen Delivery 05/07/24 02:00 05/07/24 03:59 05/07/24 04:00 Temperature 97.7 F Pulse Rate 88 86 Respiratory Rate 18 Blood Pressure 137/85 Pulse Oximetry 97 Oxygen Delivery Room Air 05/07/24 04:00 05/07/24 06:00 05/07/24 08:00 Temperature 97.7 F Pulse Rate 84 85 85 Respiratory Rate 16 Blood Pressure 135/85 Pulse Oximetry 95 Oxygen Delivery Exam Const: General: cooperative, healthy appearing and comfortable Resp: Auscultation: clear to auscultation bilaterally, no crackles, no rales, no rhonchi and no wheezes Cardio: Rate: regular rate Rhythm: regular rhythm Heart sounds: no murmurs Peripheral pulses: dorsalis pedis present GI: GI Palp: No abdominal tenderness and Yes Soft to palpation Neuro: General: oriented to person, oriented to place and oriented to time Extrem: Right lower extremity: no edema Left lower extremity: no edema Results Labs and Meds 05/07/24 03:19 05/07/24 03:19 Lab results: Cardiac Enzymes 05/06/24 05/06/24 05/07/24 Range/Units 20:51 22:58 03:19 AST 29 (17-59) U/L Troponin I 0.039 H* 0.034 (0.000-0.034) ng/mL Lipids 05/07/24 Range/Units 03:19 Triglycerides 238 H (<150) mg/dL Cholesterol 141 (0-200) mg/dL CBC 05/07/24 Range/Units 03:19 WBC 10.2 H (4.5-10.0) K/mm3 RBC 5.20 (4.6-6.20) M/mm3 Hgb 15.3 (14.0-18.0) g/dL Hct 47.3 (42.0-52.0) % Plt Count 231 (150-375) k/mm3 Lymph # (Auto) 2.71 (0.9-3.2) K/mm3 [place] # (Auto) 1.4 H (0.1-0.6) K/mm3 Eos # (Auto) 0.2 (0-0.3) K/mm3 Baso # (Auto) 0.1 (0.0-0.1) K/mm3 Comprehensive Metabolic Panel 05/07/24 Range/Units 03:19 Sodium 142 (137-145) mmol/L Potassium 4.0 (3.4-5.0) mmol/L Chloride 101 (98-107) mmol/L Carbon Dioxide 32 H (22-30) mmol/L BUN 24 H (9-20) mg/dL Creatinine 1.40 H (0.7-1.3) mg/dL Glucose 102 (65-110) mg/dL Calcium 9.1 (8.4-10.2) mg/dL AST 29 (17-59) U/L ALT 26 (6-50) U/L Alkaline Phosphatase 65 (38-126) U/L Total Protein 8.0 (6.3-8.2) g/dL Albumin 4.3 (3.5-5.1) g/dL Intake and Output 05/06/24 05/07/24 05/07/24 23:59 07:59 15:59 Intake Total 1500 Output Total 1000 Balance 500 Intake: Oral 1500 Output: Urine 1000 Other: Intake, Other Source NPO Patient Weight 05/07/24 23:59 Weight 92 kg
[2024-05-07] MEDS: FUROSEMIDE INJ 40 MG/4 ML VIAL IV PUSH (08:45)
[2024-05-07] MEDS: ASPIRIN 81 MG ENTERIC TABLET PO (08:46)
[2024-05-07] MEDS: METOPROLOL TARTRATE 25 MG TABLET PO (08:46)
[2024-05-07] MEDS: NICOTINE (*PBKC) 14 MG PATCH 1 PATCH TRANSDERM (08:47)
[2024-05-07] MEDS: PERFLUTREN LIPID MICROSPHERES 1.5 ML VIAL DILUTED TO 10 ML TOTAL VOLUME IV PUSH (09:40)
--- NOTE | 2024-05-07 11:35 | IVDEFINITY ---
Prior to administration of IV Definity the patient was educated on the risks and benefits of the imaging enhancing agent including potential adverse side effects. The patient verbalized understanding. Allergies were verified. No exclusion criteria were identified and at least one of the following inclusion criteria were met: 1) physician request, 2) patient technically difficult to image (per the [place] [employer] guidelines of two or more segments not discernable within the apical view), or 3) questionable left ventricular function. ?
[2024-05-07 13:56] LABS: Free T4 Free Thyroxine Reflex 1.35 ng/dL (0.78-2.19)
--- NOTE | 2024-05-07 17:08 | P.PNIM_ITS ---
Progress Note: A&P Assessment and Plan (1) Non-STEMI (non-ST elevated myocardial infarction): Code(s): I21.4 - Non-ST elevation (NSTEMI) myocardial infarction Status: Inactive Assessment and Plan: - EKG, initial: Sinus tachycardia (rate 103), possible left atrial enlargement, nonspecific ST and T-wave abnormality. Awaiting formal read. - repeat EKG with 3 are troponin ordered - CXR: Mild atelectasis at the right lung base and cardiomegaly - Troponin: 87.4 (high sensitivity) -> 0.039, 3rd troponin ordered - ASA 324 given in ED -> 81 mg daily - SL nitro PRN - start metoprolol tartrate 25 mg PO BID - cardiology consulted, awaiting recs - add lipid panel and A1c -echocardiogram shows less than 15% ejection fraction - telemetry monitoring (2) CHF (congestive heart failure): Qualifiers: Heart failure type: unspecified Heart failure chronicity: acute Qualified Code(s): I50.9 - Heart failure, unspecified Code(s): I50.9 - Heart failure, unspecified Status: Suspected Assessment and Plan: - chest CTA: 1. No pulmonary embolus. 2. Mild pulmonary edema. 3. Small right pleural effusion. 4. Cardiomegaly. - BNP 4286 -echocardiogram shows less than 15 % ejection - started on Lasix 40 mg IVP daily - monitor I&Os and daily weights - trend renal function - suspect shortness of breath is secondary to mild pulmonary edema/volume overload (3) Hypertension: Qualifiers: Hypertension type: unspecified Qualified Code(s): I10 - Essential (primary) hypertension Code(s): I10 - Essential (primary) hypertension Status: Acute Assessment and Plan: - chronic, but has been off medication for some time - hydralazine 10 mg IVP p.r.n. for BP greater than 180/90 - start metoprolol tartrate 25 mg b.i.d. - cardiology consulted - monitor (4) Elevated glucose: Code(s): R73.09 - Other abnormal glucose Status: Acute Assessment and Plan: - initial glucose 145 - A1c added Plan Diet: Heart healthy, NPO at midnight GI Prophylaxis: Not currently indicated DVT Prophylaxis: SCDs Lines: Peripheral Code Status: Full code Subjective Date/time seen: 12/03/24 17:08 Interval history: Patient in does taking methamphetamine capsules, marijuana for long period of time. Patient recently exhibited shortness of breath. Patient also has a history of anxiety and stress for which previously was taking Xanax. Patient also diagnosed with bipolar for which he was taking Latuda. He he did not continue his psychiatric medications for a long time. Today his echocardiogram resulted less than 15% ejection fraction. His creatinine has been increased from 1.6-1.40 possibly due to Lasix. Cardiology planned Lexiscan vs cardiac catheterization Review of Systems Review of Systems: All systems reviewed & are unremarkable except as noted in HPI and below Exam Narrative: exam okay Const: General: comfortable and no acute distress Other: , male, nontoxic appearance HENMT: Face/Nose/Sinus: Normal nares present Mouth: Yes moist mucous membranes Other: Poor dentition Eyes: General: appearance normal, both eyes and all related structures Sclera: sclerae normal Pupils: Equal, round and reactive pupils present EOM: EOMs intact bilaterally Resp: Effort & Inspection: normal respiratory effort Auscultation: clear to auscultation bilaterally Cardio: Rate: regular rate Rhythm: regular rhythm Other: S1-S2 present without murmur, rub, ectopy GI: Other: Abdomen soft, rounded, nontender. Normoactive bowel sounds in all quadrants. Skin: General skin exam: normal color and no rashes or lesions noted Wounds: no wounds Neuro: General: gait normal Cranial nerves: Yes Equal, round and reactive pupils present Speech: normal speech Motor exam (neuro): 5/5 motor strength present throughout Sensory Exam: normal sensation Other: A&O x4 Extrem: General: normal to inspection Psych: Mental Status: mental status grossly normal Affect: normal affect Other: Good insight and judgment, pleasant Objective Data Vital Signs Vital Signs: Vital Signs - 24 hr 05/06/24 18:35 05/06/24 20:44 05/06/24 21:10 Temperature 97.9 F 97.7 F Pulse Rate 75 89 91 Respiratory Rate 18 18 Blood Pressure 129/95 H 138/83 Pulse Oximetry 100 100 Oxygen Delivery 05/06/24 23:47 05/06/24 20:00 05/07/24 00:00 Temperature 97.7 F Pulse Rate 87 Respiratory Rate 18 Blood Pressure 146/90 H Pulse Oximetry 98 Oxygen Delivery Room Air Room Air 05/06/24 20:00 05/06/24 22:00 05/07/24 00:00 Temperature Pulse Rate 89 88 86 Respiratory Rate Blood Pressure Pulse Oximetry Oxygen Delivery 05/07/24 02:00 05/07/24 03:59 05/07/24 04:00 Temperature 97.7 F Pulse Rate 88 86 Respiratory Rate 18 Blood Pressure 137/85 Pulse Oximetry 97 Oxygen Delivery Room Air 05/07/24 04:00 05/07/24 06:00 05/07/24 08:00 Temperature 97.7 F Pulse Rate 84 85 85 Respiratory Rate 16 Blood Pressure 135/85 Pulse Oximetry 95 Oxygen Delivery 05/07/24 08:46 05/07/24 12:00 05/07/24 16:00 Temperature 98.1 F 97.9 F Pulse Rate 86 86 92 Respiratory Rate 20 24 H Blood Pressure 130/93 H 120/73 Pulse Oximetry 97 96 Oxygen Delivery Intake/Output Intake/Output: Intake & Output 05/04/24 05/05/24 05/06/24 05/07/24 23:59 23:59 23:59 23:59 Intake Total 1500 240 Output Total 1000 Balance 500 240 Meds/Results Medications: Active Medications Generic Name Dose Route Start Last Admin Trade Name Freq PRN Reason Stop Dose Admin Acetaminophen 650 mg 05/06/24 19:19 Acetaminophen 325 Mg Tablet PO Q4H PRN Mild Pain (1-3) or Fever Hydrocodone Bitart/Acetaminophen 1 tab 05/06/24 19:19 Hydrocodone/Acetaminophen (*Crx) 5-325 Mg Tablet PO Q4H PRN Moderate Pain (4-6) Aspirin 81 mg 05/07/24 09:00 05/07/24 08:46 Aspirin 81 Mg Enteric Tablet PO 81 mg QAM ROSANA Administration Docusate Sodium 100 mg 05/06/24 19:19 Docusate Sodium 100 Mg Capsule PO BID PRN Constipation Empagliflozin 10 mg 05/08/24 09:00 Empagliflozin 10 Mg Tablet PO DAILY ROSANA Furosemide 40 mg 05/06/24 19:40 05/07/24 08:45 Furosemide Inj 40 Mg/4 Ml Vial IV PUSH 40 mg DAILY ROSANA Administration Hydralazine HCl 10 mg 05/06/24 19:36 Hydralazine Hcl 20 Mg/Ml Vial IV PUSH Q8H PRN BP greater than 180/90 Metoprolol Tartrate 25 mg 05/06/24 21:00 05/07/24 08:46 Metoprolol Tartrate 25 Mg Tablet PO 25 mg Q12HR ROSANA Administration Nicotine 1 patch 05/07/24 09:00 05/07/24 08:47 Nicotine (*Pbkc) 14 Mg Patch TRANSDERM 1 patch DAILY ROSANA Administration Nitroglycerin 0.4 mg 05/06/24 19:19 Nitroglycerin Sl 0.4 Mg Tablet SUBLINGUAL Q5MIN PRN Chest Pain Ondansetron HCl 4 mg 05/06/24 19:19 Ondansetron Inj 4 Mg/2 Ml Vial IV PUSH Q6H PRN Nausea And Vomiting Sacubitril/Valsartan 1 tab 05/07/24 21:00 Sacubitril/Valsartan 24-26 Mg Tablet PO Q12HR [facility] Radiology Results: ITS Impressions Lexiscan Stress Test 05/07/24 14:00 IMPRESSION: 1. Small area of mild infarct involving apical to mid inferior wall of left ventricle. 2. Global hypokinesis with left ventricular ejection fraction measuring 24%. Labs Labs: Laboratory Results - last 24 hr 05/06/24 05/06/24 05/06/24 20:51 22:46 22:58 WBC RBC Hgb Hct MCV MCH MCHC RDW Plt Count MPV Immature Gran % (Auto) Neut % (Auto) Lymph % (Auto) [place] % (Auto) Eos % (Auto) Baso % (Auto) Lymph # (Auto) [place] # (Auto) Eos # (Auto) Baso # (Auto) Abs Immat Gran (auto) Absolute Neuts (auto) Absolute Nucleated RBC Nucleated RBC % Sodium Potassium Chloride Carbon Dioxide Anion Gap BUN Creatinine Estim Creat Clear Calc Estimated GFR Glucose Hemoglobin A1c Calcium Total Bilirubin AST ALT Alkaline Phosphatase Troponin I 0.039 H* 0.034 Total Protein Albumin Triglycerides Cholesterol LDL Cholesterol Direct HDL Direct TSH (Reflex) Free T4 Total T3 Urine Opiates Screen Negative Urine Methadone Screen Negative Ur Barbiturates Screen Negative Ur Phencyclidine Scrn Negative Ur Amphetamine Screen Positive A U Benzodiazepines Scrn Negative Urine Cocaine Screen Negative U Cannabinoids Screen Negative 05/07/24 05/07/24 03:16 03:19 WBC 10.2 H RBC 5.20 Hgb 15.3 Hct 47.3 MCV 91.0 MCH 29.4 MCHC 32.3 RDW 13.9 Plt Count 231 MPV 10.0 Immature Gran % (Auto) 0.4 Neut % (Auto) 56.0 Lymph % (Auto) 26.5 [place] % (Auto) 14.0 H Eos % (Auto) 2.1 Baso % (Auto) 1.0 Lymph # (Auto) 2.71 [place] # (Auto) 1.4 H Eos # (Auto) 0.2 Baso # (Auto) 0.1 Abs Immat Gran (auto) 0.04 H Absolute Neuts (auto) 5.8 Absolute Nucleated RBC 0.000 Nucleated RBC % 0.0 Sodium 142 Potassium 4.0 Chloride 101 Carbon Dioxide 32 H Anion Gap 9 BUN 24 H Creatinine 1.40 H Estim Creat Clear Calc 68 Estimated GFR 55 L Glucose 102 Hemoglobin A1c 6.0 H Calcium 9.1 Total Bilirubin 0.9 AST 29 ALT 26 Alkaline Phosphatase 65 Troponin I Total Protein 8.0 Albumin 4.3 Triglycerides 238 H Cholesterol 141 LDL Cholesterol Direct 80 HDL Direct 21 TSH (Reflex) 6.410 H Free T4 1.35 Total T3 1.60 Urine Opiates Screen Urine Methadone Screen Ur Barbiturates Screen Ur Phencyclidine Scrn Ur Amphetamine Screen U Benzodiazepines Scrn Urine Cocaine Screen U Cannabinoids Screen Quality VTE Prophylaxis VTE prophylaxis: mechanical ordered Hospitalist MIPS Advance Care Plan I have confirmed that the patient's Advanced Care Plan is present, code status is documented, or surrogate decision maker is listed in patient medical record.: Yes Medication Reconciliation I have utilized all available resources to obtain, update and review the patients current medications (includes all prescriptions, OTC, herbals, cannabis, and nutritional supplements).: Yes
[2024-05-07] MEDS: carvediloL 3.125 MG TABLET PO (21:28)
[2024-05-08] VITALS (36 sets, daily range): BP systolic 104–146; BP diastolic 51–100; PULSE 52–100; RESP 15–22; TEMP 36.4–36.8; O2SAT 94–100
[2024-05-08 05:00] LABS: Hematocrit 51.3 % (42.0-52.0); Hemoglobin 16.8 g/dL (14.0-18.0); Mean Corpuscular HGB Conc 32.7 g/dl (32-36); Mean Corpuscular Hemoglobin 29.7 pg (26-34); Mean Corpuscular Volume 90.8 fl (80-100); Mean Platelet Volume 9.7 fl (7.4-10.4); Platelet Count Result 224 k/mm3 (150-375); Red Blood Count 5.65 M/mm3 (4.6-6.20); Red Cell Distribution Width 13.9 % (11.5-14.5)
[2024-05-08 05:16] LABS: Alanine Aminotransferase 30 U/L (6-50); Albumin Level 4.4 g/dL (3.5-5.1); Alkaline Phosphatase 76 U/L (38-126); Anion Gap 7 mmol/L (4-12); Aspartate Amino Transferase 29 U/L (17-59); Bilirubin,Total 0.8 mg/dL (0.2-1.3); Blood Urea Nitrogen 24 mg/dL (9-20); Calcium 9.2 mg/dL (8.4-10.2); Carbon Dioxide 31 mmol/L (22-30); Chloride 102 mmol/L (98-107); Estimated CRCL calculation 72 ml/min; Estimated Glomerular Filt Rate 60; Glucose 116 mg/dL (65-110); Potassium 3.9 mmol/L (3.4-5.0); Sodium 140 mmol/L (137-145)
--- NOTE | 2024-05-08 07:52 | PM.PNCARD ---
Progress Note: A&P Assessment and Plan (1) Chest pain: Code(s): R07.9 - Chest pain, unspecified Status: Acute Assessment and Plan: Slightly troponin elevation at .039 and trending down. 05/07/24 Lexiscan myoview: Negative. (2) CHF (congestive heart failure): Qualifiers: Heart failure type: unspecified Heart failure chronicity: acute Qualified Code(s): I50.9 - Heart failure, unspecified Code(s): I50.9 - Heart failure, unspecified Status: Suspected Assessment and Plan: Acute systolic heart failure. Probably due to ilicit drugs. He does drink 5 bottles of water a day and needs to decrease to 2-3 bottles. 05/07/24 Echo: EF <15%, severe LVE, diastolic dysfunction (E/e' 16), severe LAE, mild THUY, trace pericardial effusion. Change Lasix IV to 40 mg PO daily. Started Coreg, Losartan (not Entresto due to cost), Jardiance. Discuss Life Vest to prevent sudden cardiac arrest and he is interested to hear more about it. Will place order. Discuss risks/benefits/alternative to [facility] and he is agreeable to procedure. Consulted HCG for it. (3) Hypertension: Qualifiers: Hypertension type: unspecified Qualified Code(s): I10 - Essential (primary) hypertension Code(s): I10 - Essential (primary) hypertension Status: Acute Assessment and Plan: Stable. (4) Smoking: Code(s): F17.200 - Nicotine dependence, unspecified, uncomplicated Status: Acute Assessment and Plan: Counseled regarding smoking cessation. (5) Substance abuse: Code(s): F19.10 - Other psychoactive substance abuse, uncomplicated Status: Acute Assessment and Plan: Counseled to quit methamphetamines and other illicits. Subjective Date/time seen: 05/08/24 07:52 Interval history: Denies chest pain. States breathing is improving. Exam Const: General: cooperative, healthy appearing and comfortable Orientation/consciousness: oriented to person, oriented to place and oriented to time Resp: Auscultation: clear to auscultation bilaterally, no crackles, no rales, no rhonchi and no wheezes Cardio: Rate: regular rate Rhythm: regular rhythm Heart sounds: no murmurs Peripheral pulses: dorsalis pedis present Neuro: General: oriented to person, oriented to place and oriented to time Extrem: Right lower extremity: no edema Left lower extremity: no edema Objective Data Vital Signs Vital Signs: Vital Signs - 24 hr 05/07/24 08:00 05/07/24 08:46 05/07/24 12:00 Temperature 97.7 F 98.1 F Pulse Rate 85 86 86 Respiratory Rate 16 20 Blood Pressure 135/85 130/93 H Pulse Oximetry 95 97 Oxygen Delivery 05/07/24 16:00 05/07/24 08:00 05/07/24 10:00 Temperature 97.9 F Pulse Rate 92 84 93 Respiratory Rate 24 H Blood Pressure 120/73 Pulse Oximetry 96 Oxygen Delivery 05/07/24 12:00 05/07/24 14:00 05/07/24 16:00 Temperature Pulse Rate 90 88 88 Respiratory Rate Blood Pressure Pulse Oximetry Oxygen Delivery 05/07/24 08:00 05/07/24 12:00 05/07/24 16:00 Temperature Pulse Rate Respiratory Rate Blood Pressure Pulse Oximetry Oxygen Delivery Room Air Room Air Room Air 05/07/24 18:00 05/07/24 20:02 05/07/24 21:28 Temperature 97.8 F Pulse Rate 90 88 93 Respiratory Rate 20 Blood Pressure 125/88 Pulse Oximetry 98 Oxygen Delivery 05/07/24 20:00 05/07/24 20:00 05/08/24 00:32 Temperature 97.8 F Pulse Rate 86 91 Respiratory Rate 20 Blood Pressure 136/90 Pulse Oximetry 99 Oxygen Delivery Room Air 05/07/24 22:00 05/08/24 00:00 05/08/24 00:00 Temperature Pulse Rate 87 88 Respiratory Rate Blood Pressure Pulse Oximetry Oxygen Delivery Room Air 05/08/24 02:00 05/08/24 04:00 05/08/24 04:00 Temperature Pulse Rate 87 67 Respiratory Rate Blood Pressure Pulse Oximetry Oxygen Delivery Room Air 05/08/24 05:19 05/08/24 06:00 Temperature 97.6 F Pulse Rate 90 93 Respiratory Rate 20 Blood Pressure 109/64 Pulse Oximetry 94 Oxygen Delivery Intake/Output Intake/Output: Intake & Output 05/05/24 05/06/24 05/07/24 05/08/24 23:59 23:59 23:59 23:59 Intake Total 6651 440 0402 Output Total 1000 1600 Balance 500 -770 1600 Meds/Results Medications: Active Medications Generic Name Dose Route Start Last Admin Trade Name Freq PRN Reason Stop Dose Admin Acetaminophen 650 mg 05/06/24 19:19 Acetaminophen 325 Mg Tablet PO Q4H PRN Mild Pain (1-3) or Fever Hydrocodone Bitart/Acetaminophen 1 tab 05/06/24 19:19 Hydrocodone/Acetaminophen (*Crx) 5-325 Mg Tablet PO Q4H PRN Moderate Pain (4-6) Aspirin 81 mg 05/07/24 09:00 05/07/24 08:46 Aspirin 81 Mg Enteric Tablet PO 81 mg QAM ROSANA Administration Carvedilol 3.125 mg 05/07/24 21:00 05/07/24 21:28 Carvedilol 3.125 Mg Tablet PO 3.125 mg Q12HR ROSANA Administration Docusate Sodium 100 mg 05/06/24 19:19 Docusate Sodium 100 Mg Capsule PO BID PRN Constipation Empagliflozin 10 mg 05/08/24 09:00 Empagliflozin 10 Mg Tablet PO DAILY ROSANA Furosemide 40 mg 05/06/24 19:40 05/07/24 08:45 Furosemide Inj 40 Mg/4 Ml Vial IV PUSH 40 mg DAILY ROSANA Administration Hydralazine HCl 10 mg 05/06/24 19:36 Hydralazine Hcl 20 Mg/Ml Vial IV PUSH Q8H PRN BP greater than 180/90 Losartan Potassium 25 mg 05/08/24 09:00 Losartan Potassium 25 Mg Tablet PO DAILY [facility] Nicotine 1 patch 05/07/24 09:00 05/07/24 08:47 Nicotine (*Pbkc) 14 Mg Patch TRANSDERM 1 patch DAILY [facility] Administration Nitroglycerin 0.4 mg 05/06/24 19:19 Nitroglycerin Sl 0.4 Mg Tablet SUBLINGUAL Q5MIN PRN Chest Pain Ondansetron HCl 4 mg 05/06/24 19:19 Ondansetron Inj 4 Mg/2 Ml Vial IV PUSH Q6H PRN Nausea And Vomiting Radiology Results: ITS Impressions Lexiscan Stress Test 05/07/24 14:00 IMPRESSION: 1. Small area of mild infarct involving apical to mid inferior wall of left ventricle. 2. Global hypokinesis with left ventricular ejection fraction measuring 24%. Labs Labs: Laboratory Results - last 24 hr 05/07/24 05/08/24 03:16 04:29 WBC 10.0 RBC 5.65 Hgb 16.8 Hct 51.3 MCV 90.8 MCH 29.7 MCHC 32.7 RDW 13.9 Plt Count 224 MPV 9.7 Sodium 140 Potassium 3.9 Chloride 102 Carbon Dioxide 31 H Anion Gap 7 BUN 24 H Creatinine 1.30 Estim Creat Clear Calc 72 Estimated GFR 60 Glucose 116 H Calcium 9.2 Total Bilirubin 0.8 AST 29 ALT 30 Alkaline Phosphatase 76 Total Protein 8.0 Albumin 4.4 TSH (Reflex) 6.410 H Free T4 1.35 Total T3 1.60
[2024-05-08] MEDS: NICOTINE (*PBKC) 14 MG PATCH 1 PATCH TRANSDERM (08:45)
[2024-05-08] MEDS: carvediloL 3.125 MG TABLET PO ×2 (08:50→21:08)
[2024-05-08] MEDS: ASPIRIN 81 MG ENTERIC TABLET PO (08:50)
[2024-05-08] MEDS: EMPAGLIFLOZIN 10 MG TABLET PO (08:51)
[2024-05-08] MEDS: LOSARTAN POTASSIUM 25 MG TABLET PO (08:51)
--- NOTE | 2024-05-08 12:51 | P.CONCA_ITS ---
Assessment and Plan Assessment and plan (1) CHF (congestive heart failure): Qualifiers: Heart failure type: unspecified Heart failure chronicity: acute Qualified Code(s): I50.9 - Heart failure, unspecified Code(s): I50.9 - Heart failure, unspecified Status: Suspected Assessment and Plan: Will proceed with [facility] today. Further recommendations and plan pending results of cardiac catheterization. (2) Smoking: Code(s): F17.200 - Nicotine dependence, unspecified, uncomplicated Status: Acute Assessment and Plan: Encourage cessation. (3) Substance abuse: Code(s): F19.10 - Other psychoactive substance abuse, uncomplicated Status: Acute Assessment and Plan: Encourage cessation. History of Present Illness History of Present Illness Consult date/time: 05/08/24 12:51 Requesting physician: Royal Bruno DO Consult reason: Other ([facility]) Reason For Visit: EKG Changes, Elevated Troponin Narrative: We are consulted for [facility] by Dr. Bruno. This is a 44 year old male with hype rtension, tobacco use, methamphetamine use who presented to [place] for chest pain and shortness of breath for the past 3 weeks. Found to have acute systolic heart failure with LVEF <15%, reduced RVSF, severe enlargement of left atrium, mild enlargement of right atrium. Nuclear stress test shows small area of mild infarct involving the apical to mid inferior wall of left ventricular; LVEF on MPI is 24%. No reversible component to suggest ischemia. EKG with sinus rhythm, left atrial enlargement, nonspecific STTW. Patient referred for [facility] for ischemic evaluation. Review of Systems Review of Systems: All systems reviewed & are unremarkable except as noted in HPI and below (HPI) [facility] Past Medical History Medical History Hypertension Kidney stones 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, 2014 Substance abuse previous methamphetamine, heroin, and Xanax abuse/use Family History Family History Mother Acute myocardial infarction Social History Social History Smoking packs per day: 0.5 Smoking cigarettes per day: 10.0 Years smoked: 30 Smoking pack-years: 15.00 Smoking status: Current every day smoker Tobacco type: cigarettes Second hand tobacco smoke exposure: Yes Substance use: current Substance use type: marijuana and methamphetamine Do You Feel Safe in your Home?: Yes Lack of Transportation: YES Lack of Food: Sometimes True Current Housing: I Have Housing Concerned About Future Housing: YES Difficulty Paying Gas/Electric Bills: YES Difficulty Paying for Meds: YES Currently Unemployed: YES Education: Trade/Vocational Certificate Difficulty w/ Childcare or Family Care: YES Spiritual care concerns: No Meds Home Medications and Allergies Home Medications Medication Instructions Recorded Confirmed Type No Home Medications 04/11/23 05/06/24 History Allergies Allergy/AdvReac Type Severity Reaction Status Date / Time No Known Drug Allergies Allergy Mild Unknown Verified 05/07/24 13:51 Vital Signs Vital Signs - 24 hr 05/07/24 16:00 05/07/24 14:00 05/07/24 16:00 Temperature 36.6 C Pulse Rate 92 88 88 Respiratory Rate 24 H Blood Pressure 120/73 Pulse Oximetry 96 Oxygen Delivery 05/07/24 16:00 05/07/24 18:00 05/07/24 20:02 Temperature 36.6 C Pulse Rate 90 88 Respiratory Rate 20 Blood Pressure 125/88 Pulse Oximetry 98 Oxygen Delivery Room Air 05/07/24 21:28 05/07/24 20:00 05/07/24 20:00 Temperature Pulse Rate 93 86 Respiratory Rate Blood Pressure Pulse Oximetry Oxygen Delivery Room Air 05/08/24 00:32 05/07/24 22:00 05/08/24 00:00 Temperature 36.6 C Pulse Rate 91 87 88 Respiratory Rate 20 Blood Pressure 136/90 Pulse Oximetry 99 Oxygen Delivery 05/08/24 00:00 05/08/24 02:00 05/08/24 04:00 Temperature Pulse Rate 87 Respiratory Rate Blood Pressure Pulse Oximetry Oxygen Delivery Room Air Room Air 05/08/24 04:00 05/08/24 05:19 05/08/24 06:00 Temperature 36.4 C Pulse Rate 67 90 93 Respiratory Rate 20 Blood Pressure 109/64 Pulse Oximetry 94 Oxygen Delivery 05/08/24 07:52 05/08/24 08:50 05/08/24 08:00 Temperature 36.4 C Pulse Rate 52 L 90 91 Respiratory Rate 18 Blood Pressure 128/92 H Pulse Oximetry 96 Oxygen Delivery 05/08/24 10:00 05/08/24 11:31 Temperature 36.5 C Pulse Rate 92 90 Respiratory Rate 18 Blood Pressure 135/90 Pulse Oximetry 98 Oxygen Delivery Exam Const: General: no acute distress HENMT: Mouth: Yes moist mucous membranes Eyes: General: appearance normal, both eyes and all related structures Sclera: sclerae normal Resp: Effort & Inspection: normal respiratory effort Cardio: Rate: regular rate Rhythm: regular rhythm Skin: General skin exam: normal color Neuro: Speech: normal speech Psych: Mental Status: mental status grossly normal Affect: normal affect Results Labs and Meds 05/08/24 04:29 05/08/24 04:29 Lab results: Cardiac Enzymes 05/08/24 Range/Units 04:29 AST 29 (17-59) U/L CBC 05/08/24 Range/Units 04:29 WBC 10.0 (4.5-10.0) K/mm3 RBC 5.65 (4.6-6.20) M/mm3 Hgb 16.8 (14.0-18.0) g/dL Hct 51.3 (42.0-52.0) % Plt Count 224 (150-375) k/mm3 Comprehensive Metabolic Panel 05/08/24 Range/Units 04:29 Sodium 140 (137-145) mmol/L Potassium 3.9 (3.4-5.0) mmol/L Chloride 102 (98-107) mmol/L Carbon Dioxide 31 H (22-30) mmol/L BUN 24 H (9-20) mg/dL Creatinine 1.30 (0.7-1.3) mg/dL Glucose 116 H (65-110) mg/dL Calcium 9.2 (8.4-10.2) mg/dL AST 29 (17-59) U/L ALT 30 (6-50) U/L Alkaline Phosphatase 76 (38-126) U/L Total Protein 8.0 (6.3-8.2) g/dL Albumin 4.4 (3.5-5.1) g/dL Intake and Output 05/07/24 05/08/24 05/08/24 23:59 07:59 15:59 Intake Total 590 1600 Output Total 1600 Balance -1010 1600 Intake: Oral 590 1600 Output: Urine 1600 Other: Intake, Other Source went NPO AT MIDNIGHT Patient Weight 05/08/24 23:59 Weight 90 kg
--- NOTE | 2024-05-08 12:57 | P.SEDATION_ITS ---
Moderate Sedation Note-Pt Data Patient Data Diagnosis: Heart failure with reduced LVEF Present Complaint: Chest pain, shortness of breath Procedure to be performed/Plan: Coronary angiography, left heart cath, +/- PCI Allergies Allergy/AdvReac Type Severity Reaction Status Date / Time No Known Drug Allergies Allergy Mild Unknown Verified 05/07/24 13:51 Home Medications Medication Instructions Recorded Confirmed Type No Home Medications 04/11/23 05/06/24 History Current Medications: Active Medications Acetaminophen (Acetaminophen 325 Mg Tablet) 650 mg PO Q4H PRN PRN Reason: Mild Pain (1-3) or Fever Hydrocodone Bitart/Acetaminophen (Hydrocodone/Acetaminophen (*Crx) 5-325 Mg Tablet) 1 tab PO Q4H PRN PRN Reason: Moderate Pain (4-6) Aspirin (Aspirin 81 Mg Enteric Tablet) 81 mg PO QAM [facility] Last Admin: 05/08/24 08:50 Dose: 81 mg Carvedilol (Carvedilol 3.125 Mg Tablet) 3.125 mg PO Q12HR [facility] Last Admin: 05/08/24 08:50 Dose: 3.125 mg Docusate Sodium (Docusate Sodium 100 Mg Capsule) 100 mg PO BID PRN PRN Reason: Constipation Empagliflozin (Empagliflozin 10 Mg Tablet) 10 mg PO DAILY [facility] Last Admin: 05/08/24 08:51 Dose: 10 mg Furosemide (Furosemide 40 Mg Tablet) 40 mg PO DAILY [facility] Hydralazine HCl (Hydralazine Hcl 20 Mg/Ml Vial) 10 mg IV PUSH Q8H PRN PRN Reason: BP greater than 180/90 Losartan Potassium (Losartan Potassium 25 Mg Tablet) 25 mg PO DAILY [facility] Last Admin: 05/08/24 08:51 Dose: 25 mg Nicotine (Nicotine (*Pbkc) 14 Mg Patch) 1 patch TRANSDERM DAILY [facility] Last Admin: 05/08/24 08:45 Dose: 1 patch Nitroglycerin (Nitroglycerin Sl 0.4 Mg Tablet) 0.4 mg SUBLINGUAL Q5MIN PRN PRN Reason: Chest Pain Ondansetron HCl (Ondansetron Inj 4 Mg/2 Ml Vial) 4 mg IV PUSH Q6H PRN PRN Reason: Nausea And Vomiting Sedation/Anesthesia: No previous sedation/anesthesia problems (including family history). 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, 2014 Substance abuse previous methamphetamine, heroin, and Xanax abuse/use Family History Family History Mother Acute myocardial infarction Social History Social History Smoking packs per day: 0.5 Smoking cigarettes per day: 10.0 Years smoked: 30 Smoking pack-years: 15.00 Smoking status: Current every day smoker Tobacco type: cigarettes Second hand tobacco smoke exposure: Yes Substance use: current Substance use type: marijuana and methamphetamine Do You Feel Safe in your Home?: Yes Lack of Transportation: YES Lack of Food: Sometimes True Current Housing: I Have Housing Concerned About Future Housing: YES Difficulty Paying Gas/Electric Bills: YES Difficulty Paying for Meds: YES Currently Unemployed: YES Education: Trade/Vocational Certificate Difficulty w/ Childcare or Family Care: YES Spiritual care concerns: No Mod Sed Physical Exam Physical Exam Pre Procedural Exam: Normal: Appearance, Lungs, Heart Rate, Heart Rhythm, Neuro Exam, Extremities and Skin Hours since solid foods: 12 Hours since liquid intake: 8 Mallampati Classification: class III Internal Medicine - PN: Obj Da Vital Signs Vital Signs: Vital Signs - 24 hr 05/07/24 16:00 05/07/24 14:00 05/07/24 16:00 Temperature 36.6 C Pulse Rate 92 88 88 Respiratory Rate 24 H Blood Pressure 120/73 Pulse Oximetry 96 Oxygen Delivery 05/07/24 16:00 05/07/24 18:00 05/07/24 20:02 Temperature 36.6 C Pulse Rate 90 88 Respiratory Rate 20 Blood Pressure 125/88 Pulse Oximetry 98 Oxygen Delivery Room Air 05/07/24 21:28 05/07/24 20:00 05/07/24 20:00 Temperature Pulse Rate 93 86 Respiratory Rate Blood Pressure Pulse Oximetry Oxygen Delivery Room Air 05/08/24 00:32 05/07/24 22:00 05/08/24 00:00 Temperature 36.6 C Pulse Rate 91 87 88 Respiratory Rate 20 Blood Pressure 136/90 Pulse Oximetry 99 Oxygen Delivery 05/08/24 00:00 05/08/24 02:00 05/08/24 04:00 Temperature Pulse Rate 87 Respiratory Rate Blood Pressure Pulse Oximetry Oxygen Delivery Room Air Room Air 05/08/24 04:00 05/08/24 05:19 05/08/24 06:00 Temperature 36.4 C Pulse Rate 67 90 93 Respiratory Rate 20 Blood Pressure 109/64 Pulse Oximetry 94 Oxygen Delivery 05/08/24 07:52 05/08/24 08:50 05/08/24 08:00 Temperature 36.4 C Pulse Rate 52 L 90 91 Respiratory Rate 18 Blood Pressure 128/92 H Pulse Oximetry 96 Oxygen Delivery 05/08/24 10:00 05/08/24 11:31 05/08/24 12:00 Temperature 36.5 C Pulse Rate 92 90 89 Respiratory Rate 18 Blood Pressure 135/90 Pulse Oximetry 98 Oxygen Delivery Intake/Output Intake/Output: Intake & Output 05/05/24 05/06/24 05/07/24 05/08/24 23:59 23:59 23:59 23:59 Intake Total 7183 587 3564 Output Total 1000 1600 Balance 500 -770 1600 Meds/Results Medications: Active Medications Generic Name Dose Route Start Last Admin Trade Name Freq PRN Reason Stop Dose Admin Acetaminophen 650 mg 05/06/24 19:19 Acetaminophen 325 Mg Tablet PO Q4H PRN Mild Pain (1-3) or Fever Hydrocodone Bitart/Acetaminophen 1 tab 05/06/24 19:19 Hydrocodone/Acetaminophen (*Crx) 5-325 Mg Tablet PO Q4H PRN Moderate Pain (4-6) Aspirin 81 mg 05/07/24 09:00 05/08/24 08:50 Aspirin 81 Mg Enteric Tablet PO 81 mg QAM ROSANA Administration Carvedilol 3.125 mg 05/07/24 21:00 05/08/24 08:50 Carvedilol 3.125 Mg Tablet PO 3.125 mg Q12HR ROSANA Administration Docusate Sodium 100 mg 05/06/24 19:19 Docusate Sodium 100 Mg Capsule PO BID PRN Constipation Empagliflozin 10 mg 05/08/24 09:00 05/08/24 08:51 Empagliflozin 10 Mg Tablet PO 10 mg DAILY ROSANA Administration Furosemide 40 mg 05/08/24 09:00 Furosemide 40 Mg Tablet PO DAILY ROSANA Hydralazine HCl 10 mg 05/06/24 19:36 Hydralazine Hcl 20 Mg/Ml Vial IV PUSH Q8H PRN BP greater than 180/90 Losartan Potassium 25 mg 05/08/24 09:00 05/08/24 08:51 Losartan Potassium 25 Mg Tablet PO 25 mg DAILY ROSANA Administration Nicotine 1 patch 05/07/24 09:00 05/08/24 08:45 Nicotine (*Pbkc) 14 Mg Patch TRANSDERM 1 patch DAILY ROSANA Administration Nitroglycerin 0.4 mg 05/06/24 19:19 Nitroglycerin Sl 0.4 Mg Tablet SUBLINGUAL Q5MIN PRN Chest Pain Ondansetron HCl 4 mg 05/06/24 19:19 Ondansetron Inj 4 Mg/2 Ml Vial IV PUSH Q6H PRN Nausea And Vomiting Radiology Results: ITS Impressions Lexiscan Stress Test 05/07/24 14:00 IMPRESSION: 1. Small area of mild infarct involving apical to mid inferior wall of left ventricle. 2. Global hypokinesis with left ventricular ejection fraction measuring 24%. Labs 05/08/24 04:29 05/08/24 04:29 Labs: Laboratory Results - last 24 hr 05/07/24 05/08/24 03:16 04:29 WBC 10.0 RBC 5.65 Hgb 16.8 Hct 51.3 MCV 90.8 MCH 29.7 MCHC 32.7 RDW 13.9 Plt Count 224 MPV 9.7 Sodium 140 Potassium 3.9 Chloride 102 Carbon Dioxide 31 H Anion Gap 7 BUN 24 H Creatinine 1.30 Estim Creat Clear Calc 72 Estimated GFR 60 Glucose 116 H Calcium 9.2 Total Bilirubin 0.8 AST 29 ALT 30 Alkaline Phosphatase 76 Total Protein 8.0 Albumin 4.4 Free T4 1.35 Total T3 1.60 ASA Classification/Sedation ASA Classification/Sedation ASA Class: III Emergent: No Risks: Risks, benefits and alternatives explained and patient/family accepted plan for sedation. Patient re-evaluated immediately prior to sedation.
--- NOTE | 2024-05-08 12:57 | PC.NURSE ---
pt to cardiac hoisting laborer for procedure
--- NOTE | 2024-05-08 13:41 | P.PCNCC_ITS ---
Cardiac Cath Procedure Note Date of procedure:: 05/08/24 Performing physician:: CATHETERIZATION LABORATORY REPORT Procedure Date: 05/08/2024 Processing Tech: Bettina Suarez M.D., [facility]? Referring Physician: Dr. Bruno Anesthesia: Versed and Fentanyl were ordered and given in my presence at 13:18, procedure ended at 13:39. Supervision of nurse monitored moderate sedation with Versed and Fentanyl was provided for 21 minutes. Total of Versed 1mg and Fentanyl 50mcg were administered by the Knitter Machine RN Chris Mayes. Pre-op Diagnosis: Coronary artery disease Post-op Diagnosis: Mild non-obstructive coronary artery disease Procedure(s): 1. Moderate sedation 2. Ultrasound-guided access of the right radial artery 3. Coronary angiography Access Site: Right radial artery Brief History and Clinical Indications: Patient is a 44 year old male who is referred for [facility] for ischemic evaluation for heart failure with reduced LVEF. All risks, benefits and alternatives to left heart catheterization with or without percutaneous coronary intervention was discussed at length with the patient. Risk of complications including but not limited to bleeding, infection, arrhythmia, stroke, worsening kidney function, blood loss, groin hematoma, limb loss, emergency coronary artery bypass grafting, and even were discussed with the patient and all questions were answered. The patient understood and wished to proceed. Time out called, patient name, date of , medical record number, allergies, procedure performed, identify Processing Tech, patient and staff member concurred with accurate data, procedure carried on. Findings: LEFT HEART CATHETERIZATION FINDINGS: 1. Left main: The left main coronary artery is widely patent without any significant obstructive disease. 2. Left anterior descending: The mid LAD has mild disease. Remainder of LAD has luminal irregularities. No significant obstructive angiographic disease. 3. Ramus: Luminal irregularities. 4. Left circumflex: The left circumflex artery and the main marginal branches have mild luminal irregularities without any significant obstructive angiographic disease. 5. Right coronary artery: The RCA is the dominant vessel. The mid portion has diffuse mild disease. No significant obstructive angiographic disease. Description of Procedure: Informed consent signed and placed in the chart. Patient transferred to catheterization laboratory technician room. Prepped and draped in usual sterile fashion. 2% lidocaine injected subcutaneously in right wrist area. 22-gauge venipuncture catheter used to access the right radial artery under ultrasound guidance. 6-FR slender sheath placed in right radial artery. Nitroglycerine and Verapamil were given intraarterial through the sheath. Versacore wire advanced under fluoroscopy 5F Tig 4 diagnostic catheter engaged Left Main Coronary Artery. 5F FR 4 diagnostic catheter engaged Right Coronary Artery Multiple orthogonal angiogram obtained and reviewed Attempted to cross aortic valve to obtain LVEDP with a 5F Pigtail catheter, however, unable to cross. Hemostasis was achieved by application of TR band. Disposition: Floor Plan: The patient will be monitored in the recovery area. The above findings were discussed with the referring physician. Continue aggressive medical therapy and risk factor modification. ? Bettina Suarez M.D. Interventional Cardiology
--- NOTE | 2024-05-08 15:20 | P.PNIM_ITS ---
Progress Note: A&P Assessment and Plan (1) Non-STEMI (non-ST elevated myocardial infarction): Code(s): I21.4 - Non-ST elevation (NSTEMI) myocardial infarction Status: Inactive Assessment and Plan: -Patient underwent cardiac catheterization today, please refer to the full report. -Advised aggressive medical therapy and risk factor modification - EKG, initial: Sinus tachycardia (rate 103), possible left atrial enlargement, nonspecific ST and T-wave abnormality. Awaiting formal read. - repeat EKG with 3 are troponin ordered - CXR: Mild atelectasis at the right lung base and cardiomegaly - Troponin: 87.4 (high sensitivity) -> 0.039, 3rd troponin ordered - ASA 324 given in ED -> 81 mg daily - SL nitro PRN - start metoprolol tartrate 25 mg PO BID - cardiology consulted, awaiting recs - add lipid panel and A1c -echocardiogram shows less than 15% ejection fraction - telemetry monitoring (2) CHF (congestive heart failure): Qualifiers: Heart failure chronicity: acute Heart failure type: unspecified Qualified Code(s): I50.9 - Heart failure, unspecified Code(s): I50.9 - Heart failure, unspecified Status: Suspected Assessment and Plan: - chest CTA: 1. No pulmonary embolus. 2. Mild pulmonary edema. 3. Small right pleural effusion. 4. Cardiomegaly. - BNP 4286 -echocardiogram shows less than 15 % ejection -Change Lasix IV to 40 mg PO daily. -Started Coreg, Losartan (not Entresto due to cost), Jardiance. -Discuss Life Vest to prevent sudden cardiac arrest - monitor I&Os and daily weights - trend renal function - suspect shortness of breath is secondary to mild pulmonary edema/volume overload (3) Hypertension: Qualifiers: Hypertension type: unspecified Qualified Code(s): I10 - Essential (primary) hypertension Code(s): I10 - Essential (primary) hypertension Status: Acute Assessment and Plan: - chronic, but has been off medication for some time - hydralazine 10 mg IVP p.r.n. for BP greater than 180/90 - start metoprolol tartrate 25 mg b.i.d. - cardiology consulted - monitor (4) Elevated glucose: Code(s): R73.09 - Other abnormal glucose Status: Acute Assessment and Plan: - initial glucose 145 - A1c added Plan Diet: Heart healthy, NPO at midnight GI Prophylaxis: Not currently indicated DVT Prophylaxis: SCDs Lines: Peripheral Code Status: Full code Subjective Date/time seen: 05/08/24 15:20 Interval history: Patient underwent cardiac catheterization today. Please refer to cardiac catheterization report Review of Systems Review of Systems: All systems reviewed & are unremarkable except as noted in HPI and below Exam Narrative: exam okay Const: General: comfortable and no acute distress Other: , male, nontoxic appearance HENMT: Face/Nose/Sinus: Normal nares present Mouth: Yes moist mucous membranes Other: Poor dentition Eyes: General: appearance normal, both eyes and all related structures Sclera: sclerae normal Pupils: Equal, round and reactive pupils present EOM: EOMs intact bilaterally Resp: Effort & Inspection: normal respiratory effort Auscultation: clear to auscultation bilaterally Cardio: Rate: regular rate Rhythm: regular rhythm Other: S1-S2 present without murmur, rub, ectopy GI: Other: Abdomen soft, rounded, nontender. Normoactive bowel sounds in all quadrants. Skin: General skin exam: normal color and no rashes or lesions noted Wounds: no wounds Neuro: General: gait normal Cranial nerves: Yes Equal, round and reactive pupils present Speech: normal speech Motor exam (neuro): 5/5 motor strength present throughout Sensory Exam: normal sensation Other: A&O x4 Extrem: General: normal to inspection Psych: Mental Status: mental status grossly normal Affect: normal affect Other: Good insight and judgment, pleasant Objective Data Vital Signs Vital Signs: Vital Signs - 24 hr 05/07/24 16:00 05/07/24 16:00 05/07/24 16:00 Temperature 97.9 F Pulse Rate 92 88 Pulse Rate [Right Radial Palpation] Respiratory Rate 24 H Blood Pressure 120/73 Pulse Oximetry 96 Oxygen Delivery Room Air 05/07/24 18:00 05/07/24 20:02 05/07/24 21:28 Temperature 97.8 F Pulse Rate 90 88 93 Pulse Rate [Right Radial Palpation] Respiratory Rate 20 Blood Pressure 125/88 Pulse Oximetry 98 Oxygen Delivery 05/07/24 20:00 05/07/24 20:00 05/08/24 00:32 Temperature 97.8 F Pulse Rate 86 91 Pulse Rate [Right Radial Palpation] Respiratory Rate 20 Blood Pressure 136/90 Pulse Oximetry 99 Oxygen Delivery Room Air 05/07/24 22:00 05/08/24 00:00 05/08/24 00:00 Temperature Pulse Rate 87 88 Pulse Rate [Right Radial Palpation] Respiratory Rate Blood Pressure Pulse Oximetry Oxygen Delivery Room Air 05/08/24 02:00 05/08/24 04:00 05/08/24 04:00 Temperature Pulse Rate 87 67 Pulse Rate [Right Radial Palpation] Respiratory Rate Blood Pressure Pulse Oximetry Oxygen Delivery Room Air 05/08/24 05:19 05/08/24 06:00 05/08/24 07:52 Temperature 97.6 F 97.6 F Pulse Rate 90 93 52 L Pulse Rate [Right Radial Palpation] Respiratory Rate 20 18 Blood Pressure 109/64 128/92 H Pulse Oximetry 94 96 Oxygen Delivery 05/08/24 08:50 05/08/24 08:00 05/08/24 10:00 Temperature Pulse Rate 90 91 92 Pulse Rate [Right Radial Palpation] Respiratory Rate Blood Pressure Pulse Oximetry Oxygen Delivery 05/08/24 11:31 05/08/24 12:00 05/08/24 13:50 Temperature 97.7 F Pulse Rate 90 89 87 Pulse Rate [Right Radial Palpation] Respiratory Rate 18 18 Blood Pressure 135/90 124/93 H Pulse Oximetry 98 95 Oxygen Delivery Room Air 05/08/24 13:50 05/08/24 14:05 05/08/24 14:05 Temperature Pulse Rate 89 Pulse Rate [Right Radial Palpation] 80 87 Respiratory Rate 18 Blood Pressure 126/99 H Pulse Oximetry 96 Oxygen Delivery Room Air 05/08/24 14:20 05/08/24 14:20 05/08/24 14:35 Temperature Pulse Rate 86 90 Pulse Rate [Right Radial Palpation] 87 Respiratory Rate 18 18 Blood Pressure 122/81 111/90 Pulse Oximetry 95 100 Oxygen Delivery Room Air Room Air 05/08/24 14:35 05/08/24 14:45 05/08/24 14:45 Temperature Pulse Rate 88 Pulse Rate [Right Radial Palpation] 91 89 Respiratory Rate 22 H Blood Pressure 130/100 H Pulse Oximetry 99 Oxygen Delivery Room Air 05/08/24 15:15 05/08/24 15:15 05/08/24 15:00 Temperature Pulse Rate 88 Pulse Rate [Right Radial Palpation] 88 86 Respiratory Rate 15 Blood Pressure 128/89 Pulse Oximetry 99 Oxygen Delivery Room Air 05/08/24 15:00 Temperature Pulse Rate 86 Pulse Rate [Right Radial Palpation] Respiratory Rate 22 H Blood Pressure 120/98 H Pulse Oximetry 98 Oxygen Delivery Room Air Intake/Output Intake/Output: Intake & Output 05/05/24 05/06/24 05/07/24 05/08/24 23:59 23:59 23:59 23:59 Intake Total 9411 149 9732 Output Total 1000 1600 Balance 500 -770 1600 Meds/Results Medications: Active Medications Generic Name Dose Route Start Last Admin Trade Name Freq PRN Reason Stop Dose Admin Acetaminophen 650 mg 05/06/24 19:19 Acetaminophen 325 Mg Tablet PO Q4H PRN Mild Pain (1-3) or Fever Hydrocodone Bitart/Acetaminophen 1 tab 05/06/24 19:19 Hydrocodone/Acetaminophen (*Crx) 5-325 Mg Tablet PO Q4H PRN Moderate Pain (4-6) Aspirin 81 mg 05/07/24 09:00 05/08/24 08:50 Aspirin 81 Mg Enteric Tablet PO 81 mg QAM ROSANA Administration Carvedilol 3.125 mg 05/07/24 21:00 05/08/24 08:50 Carvedilol 3.125 Mg Tablet PO 3.125 mg Q12HR ROSNAA Administration Docusate Sodium 100 mg 05/06/24 19:19 Docusate Sodium 100 Mg Capsule PO BID PRN Constipation Empagliflozin 10 mg 05/08/24 09:00 05/08/24 08:51 Empagliflozin 10 Mg Tablet PO 10 mg DAILY ROSANA Administration Furosemide 40 mg 05/08/24 09:00 Furosemide 40 Mg Tablet PO DAILY ROSANA Hydralazine HCl 10 mg 05/06/24 19:36 Hydralazine Hcl 20 Mg/Ml Vial IV PUSH Q8H PRN BP greater than 180/90 Losartan Potassium 25 mg 05/08/24 09:00 05/08/24 08:51 Losartan Potassium 25 Mg Tablet PO 25 mg DAILY ROSANA Administration Nicotine 1 patch 05/07/24 09:00 05/08/24 08:45 Nicotine (*Pbkc) 14 Mg Patch TRANSDERM 1 patch DAILY ROSANA Administration Nitroglycerin 0.4 mg 05/06/24 19:19 Nitroglycerin Sl 0.4 Mg Tablet SUBLINGUAL Q5MIN PRN Chest Pain Ondansetron HCl 4 mg 05/06/24 19:19 Ondansetron Inj 4 Mg/2 Ml Vial IV PUSH Q6H PRN Nausea And Vomiting Radiology Results: ITS Impressions Lexiscan Stress Test 05/07/24 14:00 IMPRESSION: 1. Small area of mild infarct involving apical to mid inferior wall of left ventricle. 2. Global hypokinesis with left ventricular ejection fraction measuring 24%. Labs Labs: Laboratory Results - last 24 hr 05/08/24 04:29 WBC 10.0 RBC 5.65 Hgb 16.8 Hct 51.3 MCV 90.8 MCH 29.7 MCHC 32.7 RDW 13.9 Plt Count 224 MPV 9.7 Sodium 140 Potassium 3.9 Chloride 102 Carbon Dioxide 31 H Anion Gap 7 BUN 24 H Creatinine 1.30 Estim Creat Clear Calc 72 Estimated GFR 60 Glucose 116 H Calcium 9.2 Total Bilirubin 0.8 AST 29 ALT 30 Alkaline Phosphatase 76 Total Protein 8.0 Albumin 4.4 Quality VTE Prophylaxis VTE prophylaxis: mechanical ordered Hospitalist [facility] Advance Care Plan I have confirmed that the patient's Advanced Care Plan is present, code status is documented, or surrogate decision maker is listed in patient medical record.: Yes Medication Reconciliation I have utilized all available resources to obtain, update and review the patients current medications (includes all prescriptions, OTC, herbals, cannabis, and nutritional supplements).: Yes
--- NOTE | 2024-05-08 17:28 | PC.NURSE ---
1650- returned to room -post cardiac cath Right Radial site- dressing CDI, armboard in use- no bruising or hematoma- pt instructed on post procedure activity- acknowledged understanding
[2024-05-08] MEDS: FUROSEMIDE 40 MG TABLET PO (17:35)
[2024-05-08] MEDS: ACETAMINOPHEN 325 MG TABLET 650 MG PO (18:09)
[2024-05-09] VITALS (9 sets, daily range): BP systolic 129–140; BP diastolic 87–94; PULSE 86–94; RESP 16–20; TEMP 36.3–36.7; O2SAT 97–100
[2024-05-09 05:14] LABS: Hematocrit 51.5 % (42.0-52.0); Hemoglobin 17.2 g/dL (14.0-18.0); Mean Corpuscular HGB Conc 33.4 g/dl (32-36); Mean Corpuscular Hemoglobin 29.9 pg (26-34); Mean Corpuscular Volume 89.6 fl (80-100); Mean Platelet Volume 9.5 fl (7.4-10.4); Platelet Count Result 227 k/mm3 (150-375); Red Blood Count 5.75 M/mm3 (4.6-6.20); Red Cell Distribution Width 13.9 % (11.5-14.5); White Blood Count 9.1 K/mm3 (4.5-10.0)
[2024-05-09 05:33] LABS: Alanine Aminotransferase 29 U/L (6-50); Albumin Level 4.3 g/dL (3.5-5.1); Alkaline Phosphatase 77 U/L (38-126); Anion Gap 5 mmol/L (4-12); Aspartate Amino Transferase 29 U/L (17-59); Blood Urea Nitrogen 22 mg/dL (9-20); Carbon Dioxide 33 mmol/L (22-30); Chloride 100 mmol/L (98-107); Estimated CRCL calculation 64 ml/min; Estimated Glomerular Filt Rate 60; Glucose 106 mg/dL (65-110); Sodium 138 mmol/L (137-145)
--- NOTE | 2024-05-09 08:01 | PM.PNCARD ---
Progress Note: A&P Assessment and Plan (1) Chest pain: Code(s): R07.9 - Chest pain, unspecified Status: Acute Assessment and Plan: Resolved. Slightly troponin elevation at .039 and trending down. 05/07/24 Lexiscan myoview: Negative. (2) CHF (congestive heart failure): Qualifiers: Heart failure type: unspecified Heart failure chronicity: acute Qualified Code(s): I50.9 - Heart failure, unspecified Code(s): I50.9 - Heart failure, unspecified Status: Suspected Assessment and Plan: Euvolemic. Acute systolic heart failure. Probably due to ilicit drugs. He does drink 5 bottles of water a day and needs to decrease to 2-3 bottles. 05/07/24 Echo: EF <15%, severe LVE, diastolic dysfunction (E/e' 16), severe LAE, mild THUY, trace pericardial effusion. 05/08/[address] Suarez: Nonobstructive minimal to mild plaques. On Lasix 40 mg PO daily and on Coreg, Losartan (not Entresto due to cost), Jardiance. Discuss Life Vest to prevent sudden cardiac arrest and he is interested to hear more about it. Await fitting. Then, october d/c home from cardiology standpoint and f/u with me in 1 week. (3) Hypertension: Qualifiers: Hypertension type: unspecified Qualified Code(s): I10 - Essential (primary) hypertension Code(s): I10 - Essential (primary) hypertension Status: Acute Assessment and Plan: Stable. (4) Smoking: Code(s): F17.200 - Nicotine dependence, unspecified, uncomplicated Status: Acute Assessment and Plan: Counseled regarding smoking cessation. (5) Substance abuse: Code(s): F19.10 - Other psychoactive substance abuse, uncomplicated Status: Acute Assessment and Plan: Counseled to quit methamphetamines and other illicits. Subjective Date/time seen: 05/09/24 08:01 Interval history: Denies chest pain. States breathing is improving. Right wrist splinted on arm board with no bruit/hematoma/bleeding. Exam Const: General: cooperative, healthy appearing and comfortable Orientation/consciousness: oriented to person, oriented to place and oriented to time Resp: Auscultation: clear to auscultation bilaterally, no crackles, no rales, no rhonchi and no wheezes Cardio: Rate: regular rate Rhythm: regular rhythm Heart sounds: no murmurs Peripheral pulses: dorsalis pedis present Neuro: General: oriented to person, oriented to place and oriented to time Extrem: Right lower extremity: no edema Left lower extremity: no edema Objective Data Vital Signs Vital Signs: Vital Signs - 24 hr 05/08/24 08:50 05/08/24 10:00 05/08/24 11:31 Temperature 97.7 F Pulse Rate 90 92 90 Pulse Rate [Right Radial Palpation] Respiratory Rate 18 Blood Pressure 135/90 Pulse Oximetry 98 Oxygen Delivery 05/08/24 12:00 05/08/24 13:50 05/08/24 13:50 Temperature Pulse Rate 89 87 Pulse Rate [Right Radial Palpation] 80 Respiratory Rate 18 Blood Pressure 124/93 H Pulse Oximetry 95 Oxygen Delivery Room Air 05/08/24 14:05 05/08/24 14:05 05/08/24 14:20 Temperature Pulse Rate 89 86 Pulse Rate [Right Radial Palpation] 87 Respiratory Rate 18 18 Blood Pressure 126/99 H 122/81 Pulse Oximetry 96 95 Oxygen Delivery Room Air Room Air 05/08/24 14:20 05/08/24 14:35 05/08/24 14:35 Temperature Pulse Rate 90 Pulse Rate [Right Radial Palpation] 87 91 Respiratory Rate 18 Blood Pressure 111/90 Pulse Oximetry 100 Oxygen Delivery Room Air 05/08/24 14:45 05/08/24 14:45 05/08/24 15:15 Temperature Pulse Rate 88 88 Pulse Rate [Right Radial Palpation] 89 Respiratory Rate 22 H 15 Blood Pressure 130/100 H 128/89 Pulse Oximetry 99 99 Oxygen Delivery Room Air Room Air 05/08/24 15:15 05/08/24 15:30 05/08/24 15:30 Temperature Pulse Rate 89 Pulse Rate [Right Radial Palpation] 88 90 Respiratory Rate 19 Blood Pressure 114/87 Pulse Oximetry 99 Oxygen Delivery Room Air 05/08/24 15:45 05/08/24 15:45 05/08/24 16:00 Temperature Pulse Rate 89 89 Pulse Rate [Right Radial Palpation] 90 Respiratory Rate 20 19 Blood Pressure 128/87 128/97 H Pulse Oximetry 99 99 Oxygen Delivery Room Air Room Air 05/08/24 16:00 05/08/24 16:15 05/08/24 16:15 Temperature Pulse Rate 91 Pulse Rate [Right Radial Palpation] 90 91 Respiratory Rate 18 Blood Pressure 104/51 L Pulse Oximetry 99 Oxygen Delivery Room Air 05/08/24 16:30 05/08/24 16:30 05/08/24 16:45 Temperature Pulse Rate 91 Pulse Rate [Right Radial Palpation] 91 91 Respiratory Rate 20 Blood Pressure 120/89 Pulse Oximetry 99 Oxygen Delivery Room Air 05/08/24 16:45 05/08/24 15:00 05/08/24 15:00 Temperature Pulse Rate 91 86 Pulse Rate [Right Radial Palpation] 86 Respiratory Rate 16 22 H Blood Pressure 133/92 H 120/98 H Pulse Oximetry 96 98 Oxygen Delivery Room Air Room Air 05/08/24 17:15 05/08/24 17:45 05/08/24 18:45 Temperature 98.3 F 98 F 97.8 F Pulse Rate 92 88 91 Pulse Rate [Right Radial Palpation] Respiratory Rate 18 20 22 H Blood Pressure 141/94 H 133/88 146/89 H Pulse Oximetry 97 95 97 Oxygen Delivery 05/08/24 16:00 05/08/24 18:00 05/08/24 19:17 Temperature Pulse Rate 91 96 Pulse Rate [Right Radial Palpation] 92 Respiratory Rate Blood Pressure Pulse Oximetry Oxygen Delivery 05/08/24 19:45 05/08/24 21:08 05/08/24 20:45 Temperature 98 F 98 F Pulse Rate 92 99 99 Pulse Rate [Right Radial Palpation] Respiratory Rate 16 16 Blood Pressure 133/85 138/88 Pulse Oximetry 98 97 Oxygen Delivery 05/08/24 20:00 05/08/24 21:45 05/08/24 20:00 Temperature 97.9 F Pulse Rate 100 88 Pulse Rate [Right Radial Palpation] Respiratory Rate 16 Blood Pressure 126/92 H Pulse Oximetry 99 Oxygen Delivery Room Air 05/08/24 22:00 05/09/24 00:00 05/09/24 00:00 Temperature 97.4 F L Pulse Rate 97 88 Pulse Rate [Right Radial Palpation] Respiratory Rate 16 Blood Pressure 137/87 Pulse Oximetry 100 Oxygen Delivery Room Air 05/09/24 00:00 05/09/24 04:00 05/09/24 02:00 Temperature 98 F Pulse Rate 87 89 87 Pulse Rate [Right Radial Palpation] Respiratory Rate 16 Blood Pressure 129/94 H Pulse Oximetry 99 Oxygen Delivery 05/09/24 04:00 05/09/24 04:00 05/09/24 06:00 Temperature Pulse Rate 86 88 Pulse Rate [Right Radial Palpation] Respiratory Rate Blood Pressure Pulse Oximetry Oxygen Delivery Room Air 05/09/24 07:58 Temperature 97.6 F Pulse Rate 90 Pulse Rate [Right Radial Palpation] Respiratory Rate 20 Blood Pressure 140/92 H Pulse Oximetry 99 Oxygen Delivery Intake/Output Intake/Output: Intake & Output 05/06/24 05/07/24 05/08/24 05/09/24 23:59 23:59 23:59 23:59 Intake Total 8202 558 2519 444 Output Total 1000 1600 Balance 500 -770 2440 444 Meds/Results Medications: Active Medications Generic Name Dose Route Start Last Admin Trade Name Freq PRN Reason Stop Dose Admin Acetaminophen 650 mg 05/06/24 19:19 05/08/24 18:09 Acetaminophen 325 Mg Tablet PO 650 mg Q4H PRN Administration Mild Pain (1-3) or Fever Hydrocodone Bitart/Acetaminophen 1 tab 05/06/24 19:19 Hydrocodone/Acetaminophen (*Crx) 5-325 Mg Tablet PO Q4H PRN Moderate Pain (4-6) Aspirin 81 mg 05/07/24 09:00 05/08/24 08:50 Aspirin 81 Mg Enteric Tablet PO 81 mg QAM ROSANA Administration Carvedilol 3.125 mg 05/07/24 21:00 05/08/24 21:08 Carvedilol 3.125 Mg Tablet PO 3.125 mg Q12HR ROSANA Administration Docusate Sodium 100 mg 05/06/24 19:19 Docusate Sodium 100 Mg Capsule PO BID PRN Constipation Empagliflozin 10 mg 05/08/24 09:00 05/08/24 08:51 Empagliflozin 10 Mg Tablet PO 10 mg DAILY ROSANA Administration Furosemide 40 mg 05/08/24 09:00 05/08/24 17:35 Furosemide 40 Mg Tablet PO 40 mg DAILY ROSANA Administration Hydralazine HCl 10 mg 05/06/24 19:36 Hydralazine Hcl 20 Mg/Ml Vial IV PUSH Q8H PRN BP greater than 180/90 Losartan Potassium 25 mg 05/08/24 09:00 05/08/24 08:51 Losartan Potassium 25 Mg Tablet PO 25 mg DAILY ROSANA Administration Nicotine 1 patch 05/07/24 09:00 12/04/24 08:45 Nicotine (*Pbkc) 14 Mg Patch TRANSDERM 1 patch DAILY ROSANA Administration Nitroglycerin 0.4 mg 05/06/24 19:19 Nitroglycerin Sl 0.4 Mg Tablet SUBLINGUAL Q5MIN PRN Chest Pain Ondansetron HCl 4 mg 05/06/24 19:19 Ondansetron Inj 4 Mg/2 Ml Vial IV PUSH Q6H PRN Nausea And Vomiting Radiology Results: ITS Impressions Lexiscan Stress Test 05/07/24 14:00 IMPRESSION: 1. Small area of mild infarct involving apical to mid inferior wall of left ventricle. 2. Global hypokinesis with left ventricular ejection fraction measuring 24%. Labs Labs: Laboratory Results - last 24 hr 05/09/24 04:24 WBC 9.1 RBC 5.75 Hgb 17.2 Hct 51.5 MCV 89.6 MCH 29.9 MCHC 33.4 RDW 13.9 Plt Count 227 MPV 9.5 Sodium 138 Potassium 4.0 Chloride 100 Carbon Dioxide 33 H Anion Gap 5 BUN 22 H Creatinine 1.30 Estim Creat Clear Calc 64 Estimated GFR 60 Glucose 106 Calcium 9.0 Total Bilirubin 1.0 AST 29 ALT 29 Alkaline Phosphatase 77 Total Protein 8.0 Albumin 4.3
[2024-05-09] MEDS: FUROSEMIDE 40 MG TABLET PO (08:57)
[2024-05-09] MEDS: EMPAGLIFLOZIN 10 MG TABLET PO (08:57)
[2024-05-09] MEDS: LOSARTAN POTASSIUM 25 MG TABLET PO (08:57)
[2024-05-09] MEDS: carvediloL 3.125 MG TABLET PO (08:57)
[2024-05-09] MEDS: NICOTINE (*PBKC) 14 MG PATCH 1 PATCH TRANSDERM (08:57)
[2024-05-09] MEDS: ASPIRIN 81 MG ENTERIC TABLET PO (08:57)
--- NOTE | 2024-05-09 12:44 | PM.IMPN ---
Subjective Date/time seen: 05/09/24 12:44 Objective Data Vital Signs Vital Signs: Vital Signs - 24 hr 05/08/24 13:50 05/08/24 13:50 05/08/24 14:05 Temperature Pulse Rate 87 89 Pulse Rate [Right Radial Palpation] 80 Respiratory Rate 18 18 Blood Pressure 124/93 H 126/99 H Pulse Oximetry 95 96 Oxygen Delivery Room Air Room Air 05/08/24 14:05 05/08/24 14:20 05/08/24 14:20 Temperature Pulse Rate 86 Pulse Rate [Right Radial Palpation] 87 87 Respiratory Rate 18 Blood Pressure 122/81 Pulse Oximetry 95 Oxygen Delivery Room Air 05/08/24 14:35 05/08/24 14:35 05/08/24 14:45 Temperature Pulse Rate 90 88 Pulse Rate [Right Radial Palpation] 91 Respiratory Rate 18 22 H Blood Pressure 111/90 130/100 H Pulse Oximetry 100 99 Oxygen Delivery Room Air Room Air 05/08/24 14:45 05/08/24 15:15 05/08/24 15:15 Temperature Pulse Rate 88 Pulse Rate [Right Radial Palpation] 89 88 Respiratory Rate 15 Blood Pressure 128/89 Pulse Oximetry 99 Oxygen Delivery Room Air 05/08/24 15:30 05/08/24 15:30 05/08/24 15:45 Temperature Pulse Rate 89 89 Pulse Rate [Right Radial Palpation] 90 Respiratory Rate 19 20 Blood Pressure 114/87 128/87 Pulse Oximetry 99 99 Oxygen Delivery Room Air Room Air 05/08/24 15:45 05/08/24 16:00 05/08/24 16:00 Temperature Pulse Rate 89 Pulse Rate [Right Radial Palpation] 90 90 Respiratory Rate 19 Blood Pressure 128/97 H Pulse Oximetry 99 Oxygen Delivery Room Air 05/08/24 16:15 05/08/24 16:15 05/08/24 16:30 Temperature Pulse Rate 91 Pulse Rate [Right Radial Palpation] 91 91 Respiratory Rate 18 Blood Pressure 104/51 L Pulse Oximetry 99 Oxygen Delivery Room Air 05/08/24 16:30 05/08/24 16:45 05/08/24 16:45 Temperature Pulse Rate 91 91 Pulse Rate [Right Radial Palpation] 91 Respiratory Rate 20 16 Blood Pressure 120/89 133/92 H Pulse Oximetry 99 96 Oxygen Delivery Room Air Room Air 05/08/24 15:00 05/08/24 15:00 05/08/24 17:15 Temperature 98.3 F Pulse Rate 86 92 Pulse Rate [Right Radial Palpation] 86 Respiratory Rate 22 H 18 Blood Pressure 120/98 H 141/94 H Pulse Oximetry 98 97 Oxygen Delivery Room Air 05/08/24 17:45 05/08/24 18:45 05/08/24 16:00 Temperature 98 F 97.8 F Pulse Rate 88 91 91 Pulse Rate [Right Radial Palpation] Respiratory Rate 20 22 H Blood Pressure 133/88 146/89 H Pulse Oximetry 95 97 Oxygen Delivery 05/08/24 18:00 05/08/24 19:17 05/08/24 19:45 Temperature 98 F Pulse Rate 96 92 Pulse Rate [Right Radial Palpation] 92 Respiratory Rate 16 Blood Pressure 133/85 Pulse Oximetry 98 Oxygen Delivery 05/08/24 21:08 05/08/24 20:45 05/08/24 20:00 Temperature 98 F Pulse Rate 99 99 Pulse Rate [Right Radial Palpation] Respiratory Rate 16 Blood Pressure 138/88 Pulse Oximetry 97 Oxygen Delivery Room Air 05/08/24 21:45 05/08/24 20:00 05/08/24 22:00 Temperature 97.9 F Pulse Rate 100 88 97 Pulse Rate [Right Radial Palpation] Respiratory Rate 16 Blood Pressure 126/92 H Pulse Oximetry 99 Oxygen Delivery 05/09/24 00:00 05/09/24 00:00 05/09/24 00:00 Temperature 97.4 F L Pulse Rate 88 87 Pulse Rate [Right Radial Palpation] Respiratory Rate 16 Blood Pressure 137/87 Pulse Oximetry 100 Oxygen Delivery Room Air 05/09/24 04:00 05/09/24 02:00 05/09/24 04:00 Temperature 98 F Pulse Rate 89 87 Pulse Rate [Right Radial Palpation] Respiratory Rate 16 Blood Pressure 129/94 H Pulse Oximetry 99 Oxygen Delivery Room Air 05/09/24 04:00 05/09/24 06:00 05/09/24 07:58 Temperature 97.6 F Pulse Rate 86 88 90 Pulse Rate [Right Radial Palpation] Respiratory Rate 20 Blood Pressure 140/92 H Pulse Oximetry 99 Oxygen Delivery 05/09/24 08:00 05/09/24 10:00 05/09/24 11:17 Temperature 98.1 F Pulse Rate 91 94 86 Pulse Rate [Right Radial Palpation] Respiratory Rate 20 Blood Pressure 135/91 H Pulse Oximetry 97 Oxygen Delivery Intake/Output Intake/Output: Intake & Output 05/06/24 05/07/24 05/08/24 05/09/24 23:59 23:59 23:59 23:59 Intake Total 0123 097 4635 1044 Output Total 1000 1600 Balance 500 -770 2440 1044 Meds/Results Medications: Active Medications Generic Name Dose Route Start Last Admin Trade Name Freq PRN Reason Stop Dose Admin Acetaminophen 650 mg 05/06/24 19:19 05/08/24 18:09 Acetaminophen 325 Mg Tablet PO 650 mg Q4H PRN Administration Mild Pain (1-3) or Fever Hydrocodone Bitart/Acetaminophen 1 tab 05/06/24 19:19 Hydrocodone/Acetaminophen (*Crx) 5-325 Mg Tablet PO Q4H PRN Moderate Pain (4-6) Aspirin 81 mg 05/07/24 09:00 05/09/24 08:57 Aspirin 81 Mg Enteric Tablet PO 81 mg QAM ROSANA Administration Carvedilol 3.125 mg 05/07/24 21:00 05/09/24 08:57 Carvedilol 3.125 Mg Tablet PO 3.125 mg Q12HR ROSANA Administration Docusate Sodium 100 mg 05/06/24 19:19 Docusate Sodium 100 Mg Capsule PO BID PRN Constipation Empagliflozin 10 mg 05/08/24 09:00 05/09/24 08:57 Empagliflozin 10 Mg Tablet PO 10 mg DAILY ROSANA Administration Furosemide 40 mg 05/08/24 09:00 05/09/24 08:57 Furosemide 40 Mg Tablet PO 40 mg DAILY ROSANA Administration Hydralazine HCl 10 mg 05/06/24 19:36 Hydralazine Hcl 20 Mg/Ml Vial IV PUSH Q8H PRN BP greater than 180/90 Losartan Potassium 25 mg 05/08/24 09:00 05/09/24 08:57 Losartan Potassium 25 Mg Tablet PO 25 mg DAILY ROSANA Administration Nicotine 1 patch 05/07/24 09:00 05/09/24 08:57 Nicotine (*Pbkc) 14 Mg Patch TRANSDERM 1 patch DAILY ROSANA Administration Nitroglycerin 0.4 mg 05/06/24 19:19 Nitroglycerin Sl 0.4 Mg Tablet SUBLINGUAL Q5MIN PRN Chest Pain Ondansetron HCl 4 mg 05/06/24 19:19 Ondansetron Inj 4 Mg/2 Ml Vial IV PUSH Q6H PRN Nausea And Vomiting Radiology Results: ITS Impressions Lexiscan Stress Test 05/07/24 14:00 IMPRESSION: 1. Small area of mild infarct involving apical to mid inferior wall of left ventricle. 2. Global hypokinesis with left ventricular ejection fraction measuring 24%. Labs Labs: Laboratory Results - last 24 hr 05/09/24 04:24 WBC 9.1 RBC 5.75 Hgb 17.2 Hct 51.5 MCV 89.6 MCH 29.9 MCHC 33.4 RDW 13.9 Plt Count 227 MPV 9.5 Sodium 138 Potassium 4.0 Chloride 100 Carbon Dioxide 33 H Anion Gap 5 BUN 22 H Creatinine 1.30 Estim Creat Clear Calc 64 Estimated GFR 60 Glucose 106 Calcium 9.0 Total Bilirubin 1.0 AST 29 ALT 29 Alkaline Phosphatase 77 Total Protein 8.0 Albumin 4.3
--- NOTE | 2024-05-09 14:21 | PM.DS ---
DS: Admitting Diagnosis Discharge Date 05/09/2024 Admitting Diagnosis Shortness of breath DS: Discharge Diagnosis Discharge Diagnosis (1) Non-STEMI (non-ST elevated myocardial infarction): Code(s): I21.4 - Non-ST elevation (NSTEMI) myocardial infarction Status: Inactive Assessment and Plan: Please refer to hospital course for brief summary -Patient underwent cardiac catheterization today, please refer to the full report. -Advised aggressive medical therapy and risk factor modification - EKG, initial: Sinus tachycardia (rate 103), possible left atrial enlargement, nonspecific ST and T-wave abnormality. Awaiting formal read. - repeat EKG with 3 are troponin ordered - CXR: Mild atelectasis at the right lung base and cardiomegaly - Troponin: 87.4 (high sensitivity) -> 0.039, 3rd troponin ordered - ASA 324 given in ED -> 81 mg daily - SL nitro PRN - start metoprolol tartrate 25 mg PO BID - cardiology consulted, awaiting recs - add lipid panel and A1c -echocardiogram shows less than 15% ejection fraction - telemetry monitoring (2) CHF (congestive heart failure): Qualifiers: Heart failure chronicity: acute Heart failure type: unspecified Qualified Code(s): I50.9 - Heart failure, unspecified Code(s): I50.9 - Heart failure, unspecified Status: Suspected Assessment and Plan: - chest CTA: 1. No pulmonary embolus. 2. Mild pulmonary edema. 3. Small right pleural effusion. 4. Cardiomegaly. - BNP 4286 -echocardiogram shows less than 15 % ejection -Change Lasix IV to 40 mg PO daily. -Started Coreg, Losartan (not Entresto due to cost), Jardiance. -Discuss Life Vest to prevent sudden cardiac arrest - monitor I&Os and daily weights - trend renal function - suspect shortness of breath is secondary to mild pulmonary edema/volume overload (3) Hypertension: Qualifiers: Hypertension type: unspecified Qualified Code(s): I10 - Essential (primary) hypertension Code(s): I10 - Essential (primary) hypertension Status: Acute Assessment and Plan: - chronic, but has been off medication for some time - hydralazine 10 mg IVP p.r.n. for BP greater than 180/90 - start metoprolol tartrate 25 mg b.i.d. - cardiology consulted - monitor (4) Elevated glucose: Code(s): R73.09 - Other abnormal glucose Status: Acute Assessment and Plan: - initial glucose 145 - A1c added Plan Diet: Heart healthy, NPO at midnight GI Prophylaxis: Not currently indicated DVT Prophylaxis: SCDs Lines: Peripheral Code Status: Full code DS: Summary Hospital Course Hospital Course: 44 y/o M presents here with shortness of breath with PMH of kidney stones, previous substance abuse (meth, heroin, Xanax), seizure secondary to Xanax abuse in 2013, and hypertension. The patient presented to [facility] ED from home for further evaluation of shortness of breath. He reports onset approximately 3 weeks ago. Shortness of breath is primarily occurring when he tries to go to sleep (could be upright or laying flat) and with exertion (example given was walking out to his truck and back). Shortness of breath was precipitated by 3 weeks of left shoulder discomfort that he described as achy, worsened with movement, and nonradiating. He is also experiencing some associated chest discomfort with the shortness of breath which he developed a few days ago, has primarily had only one severe episode. He describes this as elephant sitting on his chest , lasted 20 minutes, nonradiating, occurred with severe shortness of breath, and was alleviated with walking around. Patient did not trial any home medications for the symptoms. Patient is also reporting that he has been more fatigued, unsure if this is related to depression related to a recent loss of his job or related to whatever is causing the shortness of breath. He has also reported 10 lbs of weight gain in the last month. He is currently a smoker for the past 30 years, 1 PPD. Endorsing marijuana use and has had some meth use (PO) in the last month. Was using the meth to help resolve his shortness of breath. Denies alcohol use. Denies any personal history or family history of coronary artery disease. The patient has known hypertension for which he has never taken medication for this despite his diagnosis. Does not follow regularly with a primary care provider. Initial VS at presentation: 97.1, HR 109, RR 22, 161/111, and 100% on RA. ED workup showed: No leukocytosis, no anemia, normal coags, elevated D-dimer, creatinine 1.26 and GFR >60, glucose 145, high sensitivity troponin 87.4, BNP 4286. CXR showed mild atelectasis at the right lung base and cardiomegaly. Shoulder XR (L) showed mild acromioclavicular joint osteoarthritis. Chest CTA showed no PE, mild pulmonary edema, small right pleural effusion, and cardiomegaly. Echocardiogram shows present 15% ejection fraction. Patient underwent cardiac catheterization which did not show any significant finding. Cardiology advised continuing aggressive medical therapy and risk factor modification. Patient was started on Lasix 40 mg p.o. q.d., Coreg, losartan (not Entresto due to cost), Jardiance and was given LifeVest. We will leave his lower in ejection fraction possibly due to prolonged hypertension from childhood aggravated by chronic drug abuse. We emphasized the importance of medical management and and seeking help in opioid abuse. Status at Discharge Cognitive/behavioral status at discharge: Stable Time Spent with Patient Time attestation: Total time spent providing and/or coordinating discharge services: 45 minute Exam Narrative: exam okay Const: General: comfortable and no acute distress Other: , male, nontoxic appearance HENMT: Face/Nose/Sinus: Normal nares present Mouth: Yes moist mucous membranes Other: Poor dentition Eyes: General: appearance normal, both eyes and all related structures Sclera: sclerae normal Pupils: Equal, round and reactive pupils present EOM: EOMs intact bilaterally Resp: Effort & Inspection: normal respiratory effort Auscultation: clear to auscultation bilaterally Cardio: Rate: regular rate Rhythm: regular rhythm Other: S1-S2 present without murmur, rub, ectopy GI: Other: Abdomen soft, rounded, nontender. Normoactive bowel sounds in all quadrants. Skin: General skin exam: normal color and no rashes or lesions noted Wounds: no wounds Neuro: General: gait normal Cranial nerves: Yes Equal, round and reactive pupils present Speech: normal speech Motor exam (neuro): 5/5 motor strength present throughout Sensory Exam: normal sensation Other: A&O x4 Extrem: General: normal to inspection Psych: Mental Status: mental status grossly normal Affect: normal affect Other: Good insight and judgment, pleasant DS: Data Data Completed and Pending Labs on day of discharge: Labs from last 24 hours 05/09/24 04:24 WBC 9.1 RBC 5.75 Hgb 17.2 Hct 51.5 MCV 89.6 MCH 29.9 MCHC 33.4 RDW 13.9 Plt Count 227 MPV 9.5 Sodium 138 Potassium 4.0 Chloride 100 Carbon Dioxide 33 H Anion Gap 5 BUN 22 H Creatinine 1.30 Estim Creat Clear Calc 64 Estimated GFR 60 Glucose 106 Calcium 9.0 Total Bilirubin 1.0 AST 29 ALT 29 Alkaline Phosphatase 77 Total Protein 8.0 Albumin 4.3 Discharge Plan Discharge Attending physician on discharge: Kirby Rudolph Consulting providers: Bettina Suarez; Royal Bruno Discharging Clinician: Kirby Rudolph Patient Disposition: Home, Self-Care Activity: as tolerated Diet: heart healthy Discharge Instructions: Patient needs to quit smoking and opioid use. Needs to follow-up with the primary care physician and the Cardiology in regards to his new finding of heart failure (ejection fraction less than 15%). Advised the importance of medication compliance and wearing life vest. Patient Instructions: Antibiotic Form, Heart Failure (DC), Chest Pain (GEN), Chronic Hypertension (DC), Heart Catheterization (DC), Narcotic Use Disorder (DC) Stand Alone Forms: General Discharge Information Follow-up/Referrals: Royal Bruno DO [Physician] - 1 Week Discharge Medications: New furosemide 40 mg Tablet 40 mg PO DAILY Qty: 30 0RF aspirin 81 mg Tablet,Delayed Release (Dr/Ec) 81 mg PO QAM Qty: 30 0RF carvedilol [Coreg] 3.125 mg Tablet 3.125 mg PO Q12HR Qty: 30 0RF losartan 25 mg Tablet 25 mg PO DAILY Qty: 30 0RF Jardiance 10 mg Tablet 10 mg PO DAILY Qty: 30 0RF Date of admission: 05/08/24 16:17 Primary Care Provider: UNKNOWN,DOCTOR Admitting Provider: Igor Barker Attending physician on admission: Igor Barker Condition: Stable Hospitalist MIPS Heart Failure (Qualifier) Patient has current or prior documentation of LVEF less than or equal to 40%, or mod/servere depressed LVSF?: Yes IF NO, STOP HERE If Yes, Heart Failure (Qualifier) Patient was prescribed or already taking an Angiotensin-Converting Enzyme (HUONG) Inhibitor, or Antiotensin Receptor [place] (ARB): Yes Patient was prescribed or already taking bisoprolol, carvedilol, or sustained release metoprolol succinate: Yes
== END 2024-05-09 15:30 | disposition home or self-care (01) | DRG 190 ==
PROVIDERS: Internal Medicine; Student in an Organized Health Care Education/Training Program; Admitting Provider Internal Medicine; Visit Provider General Practice
PROC: 4A023N7 Measurement of Cardiac Sampling and Pressure, Left Heart, Percutaneous Approach (ICD-10-PCS; CPT 93452; principal; 2024-05-08 13:00)
DX: I21.4 Non-ST elevation (NSTEMI) myocardial infarction (principal); I50.21 Acute systolic (congestive) heart failure; I11.0 Hypertensive heart disease with heart failure; I25.10 Atherosclerotic heart disease of native coronary artery without angina pectoris; F17.210 Nicotine dependence, cigarettes, uncomplicated; F15.10 Other stimulant abuse, uncomplicated; R56.9 Unspecified convulsions; R73.09 Other abnormal glucose
CPT/HCPCS: 36415; 78452; 80053; 80061; 80307; 83036; 84439; 84443; 84480; 84484; 85025; 85027; 93005; 93017; 93458; 99212; A9270; A9502; C1769; C1887; C1894; C8929; G0378; G0379; G0463; J1644; J1940; J2003; J2250; J2305; J2785; J3010; Q9957

== ENCOUNTER 2024-06-25 20:28 | Emergency (ER) | payer SELFPAY ==
[2024-06-25] VITALS (17 sets, daily range): BP systolic 74–106; BP diastolic 51–82; PULSE 84–98; RESP 13–20; TEMP 36.6; O2SAT 94–100
--- NOTE | ~2024-06-25 | XR_ITS ---
CHEST RADIOGRAPH CLINICAL HISTORY: dizzy, sob-pt has port defib on waiting on heart transplant . COMPARISON: 05/06/2024 TECHNIQUE: Single portable view of the chest. FINDINGS The cardiomediastinal silhouette is enlarged, unchanged. The lungs are clear. Visualized osseous structures and soft tissues are unremarkable. IMPRESSION: No focal infiltrate or effusion. Reviewed, dictated and finalized at location A. SPECIALIST
--- NOTE | 2024-06-25 20:29 | ECG_ITS ---
Test Date: 2024-06-25 20:36:43 Measurements Intervals [place] Rate: 90 P: 1 WI: 175 QRS: 65 QRSD: 103 T: -81 QT: 382 QTc: 468 Interpretive Statements SINUS RHYTHM ANTEROSEPTAL MYOCARDIAL INFARCTION , OF INDETERMINATE AGE [40+ ms Q WAVE IN V1-V4] MODERATE T-WAVE ABNORMALITY, CONSIDER LATERAL ISCHEMIA [-0.1+ mV T-WAVE IN I/aVL/V5/V6] MODERATE T-WAVE ABNORMALITY, CONSIDER INFERIOR ISCHEMIA [-0.1+ mV T-WAVE IN II/aVF] Compared to ECG 05/06/2024 20:08:08 T-wave abnormality still present Electronically Signed On 06-27-2024 12:33:54 QC TECH by Bettina Suarez M.D.
--- NOTE | 2024-06-25 20:39 | ED_ITS ---
HPI - Dizziness General Chief Complaint: Dizziness Stated Complaint: Dizzy Time Seen by Provider: 06/25/24 20:29 Source: patient Mode of arrival: ambulatory Limitations: no limitations History of Present Illness HPI Narrative: 44 year old male presents to the Emergency Department complaining of feeling dizzy, short of breath and diaphoretic. Onset an hour ago. Patient is wearing life vest for the past month. States he has cardiac ejection fraction of 15% and if it does not get up to 30% within 3 months, he will be a transplant candidate. Denies chest pain. History of substance abuse. Used methamphetamine yesterday. MD elicited complaint: dizziness and lightheadedness Onset (ago): hour(s) (1) Timing: sudden onset Severity: moderate Exacerbating factors: nothing Relieving factors: nothing Associated symptoms: diaphoresis and shortness of breath Related Data Home Medications ?Medication ?Instructions ?Recorded ?Confirmed ?Last Taken ?Type dapagliflozin propanediol 10 mg 10 mg PO DAILY 06/21/24 06/21/24 Unknown History tablet (Farxiga) Allergies Allergy/AdvReac Type Severity Reaction Status Date / Time No Known Drug Allergies Allergy Mild Unknown Verified 06/26/24 01:43 Review of Systems 2 Review of Systems: All systems reviewed & are unremarkable except as noted in HPI and below Constitutional: Constitutional: Reports as per HPI, Denies chills and Denies fever(s) Eyes: Eyes: Reports as per HPI and Denies change in vision ENT: Reports system reviewed and no additional complaints, except as documented Cardiovascular: Cardiovascular: Reports as per HPI, Reports no additional cardiovascular complaints and Denies chest pain Respiratory: Respiratory: Reports as per HPI, Reports no additional respiratory complaints and Reports dyspnea Gastrointestinal: Gastrointestinal: Reports as per HPI, Reports no additional gastrointestinal complaints, Denies abdominal pain, Denies diarrhea, Denies nausea and Denies vomiting Genitourinary: Genitourinary: Reports no additional male genitourinary complaints Musculoskeletal: Musculoskeletal: Reports no additional musculoskeletal complaints Integumentary/Breasts: Skin/Breast: Reports system reviewed and no additional complaints, except as docu Neurologic: Reports system reviewed and no additional complaints, except as documented and Reports dizziness Endocrine: Endocrine: Reports no additional endocrine complaints and Reports excessive sweating Hematologic/Lymphatic: Hematologic/Lymphatic: Reports no additional hematologic/lymphatic complaints Allergic/Immunologic: Allergic/Immunologic: Reports no additional allergic/immunologic complaints PMFSH Past Medical History Medical History Recent heart attack 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, 2014 Substance abuse previous methamphetamine, heroin, and Xanax abuse/use Hypertension Kidney stones Family History Family History Mother Acute myocardial infarction Social History Social History Smoking packs per day: 0.5 Smoking cigarettes per day: 10.0 Years smoked: 30 Smoking pack-years: 15.00 Smoking status: Current every day smoker Tobacco type: cigarettes Second hand tobacco smoke exposure: Yes Substance use: current Substance use type: marijuana and methamphetamine Do You Feel Safe in your Home?: Yes Lack of Transportation: YES Lack of Food: Sometimes True Current Housing: I Have Housing Concerned About Future Housing: YES Difficulty Paying Gas/Electric Bills: YES Difficulty Paying for Meds: YES Currently Unemployed: YES Education: Trade/Vocational Certificate Difficulty w/ Childcare or Family Care: YES Spiritual care concerns: No Exam 2 Const: General: diaphoretic and ill appearing Nutritional Appearance: well nourished Orientation/consciousness: patient oriented x3 Limitations: no limitations HENMT: Head: normal to inspection Face/Nose/Sinus: Normal external nose present Face and sinus: normal facial exam Mouth: Yes Normal oral and palatal mucosa present Teeth and gingiva: dentition normal Throat: p osterior oropharynx normal Eyes: Pupils: Equal, round and reactive pupils present EOM: EOMs intact bilaterally Direct Ophthalmoscopy: no photophobia Neck: Neck: normal visual inspection and meningismus present Chest: Chest palpation & inspection: normal inspection of the chest Resp: Effort & Inspection: normal respiratory effort Auscultation: clear to auscultation bilaterally Cardio: Rate: regular rate Rhythm: regular rhythm GI: Inspection: non-distended : General: Yes bladder normal to palpation Back/Spine/Pelvis: Back: no CVA tenderness Skin: Other: diaphoretic Neuro: General: patient oriented x3 Speech: normal speech Other: grossly normal Extrem: General: normal to inspection and no clubbing, cyanosis or edema Course Course Emergency Course: 44 y/o male presents to the ED c/o feeling dizzy and light headed, diaphoretic and short of breath. Patient has been wearing life vest for the past month for cardiac ejection fraction of 15%. Hx substance abuse. States used methamphetamine yesterday. PE: diaphoretic CBC: H/H 16.6/50.4, Plt 239; wbc 13.7 with 68 S, 22 L, 9 M CMP: Na 143, K 3.8, Cl 100, CO2 33, Glc 80, BUN 27, Cr 1.81; LFT's normal TNI: 46.3 EKG: NSR, 90, PRWP, T wave inversion inferior/laterally - ? ischemia D-dimer: 0.38 M.9 Lactic: 1.5 UA: UDS: PCXR: NAD Tx: development assistant, pulse ox, saline lock. NS. ([id number]) discussed with Dr. Souza. Would like lactic acid and call back. Will accept for transfer to [place] if lactic ok. (8125) Lactic acid called back to transfer. Will relay to Dr. Souza. (1835) Bed assigned [[id number]]. Report to be called and EMS notified of transfer. Vital Signs Vital signs: Vital Signs Oxygen Delivery Room Air 06/25/24 20:28 Temperature 36.6 C 06/25/24 22:15 Pulse Rate 87 06/26/24 01:39 Respiratory Rate 20 06/26/24 01:39 Blood Pressure 91/52 L 06/26/24 01:39 Pulse Oximetry 98 06/26/24 01:39 Oxygen Delivery Room Air 06/25/24 22:15 Transfer Transfered to: [place] Transportation: ALS Transfer rationale: Cardiac evaluation /monitoring Continuity of care Higher level of care Accepting physician: Dr. Souza () MDM - Dizziness Lab Data 06/25/24 20:39 06/25/24 20:39 Labs: Lab Results 06/25/24 06/25/24 06/26/24 Range/Units 00:29 20:39 01:25 WBC 13.7 H (4.8-10.8) K/mm3 RBC 5.81 (4.70-6.10) M/mm3 Hgb 16.6 (14.0-18.0) g/dL Hct 50.4 (40.0-54.0) % MCV 86.7 (78.0-102.0) fL MCH 28.6 (27.0-31.0) pg MCHC 32.9 (32-36) g/dL RDW 13.5 (11.6-14.4) % Plt Count 239 (150-420) K/mm3 MPV 9.4 (8.7-11.0) fl Immature Gran % (Auto) 0.3 H (0.0-0.0) % Neut % (Auto) 67.7 (50.0-70.0) % Lymph % (Auto) 21.7 (18.0-42.0) % [place] % (Auto) 8.8 (2.0-11.0) % Eos % (Auto) 1.0 (1.0-6.0) % Baso % (Auto) 0.5 (0.0-1.0) % Lymph # (Auto) 2.98 (1.10-4.50) K/mm3 [place] # (Auto) 1.21 H (0.10-0.90) K/mm3 Eos # (Auto) 0.14 (0.02-0.50) K/mm3 Baso # (Auto) 0.07 (0.00-0.10) K/mm3 Abs Immat Gran (auto) 0.04 H (0.00-0.00) K/mm3 Absolute Neuts (auto) 9.29 H (1.70-7.20) K/mm3 Absolute Nucleated RBC 0.00 (0.00-0.00) K/mm3 Nucleated RBC % 0.0 (0-0.0) % D-Dimer 0.38 (0.19-0.50) mg/L Sodium 143 (136-145) mmol/L Potassium 3.8 (3.5-5.1) mmol/L Chloride 100 (98-108) mmol/L Carbon Dioxide 33 H (21-32) mmol/L Anion Gap 10 (4-12) mmol/L BUN 27 H (7-18) mg/dL Creatinine 1.81 H (0.70-1.30) mg/dL Estim Creat Clear Calc Not Reportable Estimated GFR 41 L (59 - ) Glucose 80 (70-99) mg/dL Calculated Osmolality 300 H (285-295) mOsm/kg Lactic Acid 1.5 (0.4-2.0) mmol/L Calcium 9.6 (8.5-10.1) mg/dL Magnesium 1.9 (1.8-2.4) mg/dL Total Bilirubin 0.6 (0.00-1.00) mg/dL AST 14 L (15-37) U/L ALT 28 (16-63) U/L Alkaline Phosphatase 82 (46-116) U/L Troponin I 46.3 (0.00-60.4) ng/L Total Protein 8.3 H (6.4-8.2) g/dL Albumin 4.2 (3.4-5.0) g/dL Urine Color Yellow (Yellow) Urine Appearance Clear (Clear) Urine pH 5.5 (5.0-8.0) Ur Specific [place] >= 1.030 H (1.010-1.020) Urine Protein 1+ H (Negative) Urine Glucose (UA) Negative (Negative) Urine Ketones Negative (Negative) Ur Blood (Man) Negative (Negative) Urine Nitrate Negative (Negative) Urine Bilirubin Negative (Negative) Urine Urobilinogen 0.2 (0.2-1.0) mg/dL Ur Leukocyte Esterase Negative (Negative) Urine RBC 0-2 (0-2) /hpf Urine WBC 0-3 (0-3) /hpf Ur Squamous Epith Cells Rare (Few) /hpf Amorphous Sediment Few H (None) Other Sediment Spermatazoa H (None) /hpf Urine Bacteria Trace (None) /hpf Urine Opiates Screen Negative (Negative) Urine Methadone Screen Negative (Negative) Ur Barbiturates Screen Negative (Negative) Ur Phencyclidine Scrn Negative (Negative) Ur Amphetamine Screen Positive A (Negative) U Benzodiazepines Scrn Negative (Negative) Urine Cocaine Screen Negative (Negative) U Cannabinoids Screen Negative (Negative) Influenza A (RT-PCR) Pending Influenza B (RT-PCR) Pending RSV (RT-PCR) Pending SARS-CoV-2 RNA (RT-PCR) Pending Discharge Plan Discharge Clinical Impression: Cardiomyopathy, HFrEF (heart failure with reduced ejection fraction), Substance abuse, Cardiac ischemia Patient Language: Cypriot Prescriptions: No Action aspirin 81 mg tablet,delayed release (DR/EC) 81 mg PO QAM Qty: 30 0RF carvedilol [Coreg] 3.125 mg tablet 3.125 mg PO Q12HR Qty: 180 3RF furosemide 40 mg tablet 40 mg PO DAILY Qty: 90 3RF losartan 25 mg tablet 25 mg PO DAILY Qty: 90 3RF spironolactone 25 mg tablet 25 mg PO DAILY Qty: 90 3RF dapagliflozin propanediol [Farxiga] 10 mg tablet 10 mg PO DAILY modafinil 100 mg tablet 100 mg PO QAM Qty: 30 1RF Follow-up/Referrals: Kevin Dorantes DO [Primary Care Provider] - Time of Disposition: 23:50
[2024-06-25 20:43] LABS: Basophils Absolute Auto 0.07 K/mm3 (0.00-0.10); Basophils Percent Auto 0.5 % (0.0-1.0); Eosinophils Absolute Auto 0.14 K/mm3 (0.02-0.50); Hematocrit 50.4 % (40.0-54.0); Hemoglobin 16.6 g/dL (14.0-18.0); Immature Granulocyte Absolute 0.04 K/mm3 (0.00-0.00); Immature Granulocyte Percent A 0.3 % (0.0-0.0); Lymphocytes Absolute Auto 2.98 K/mm3 (1.10-4.50); Lymphocytes Percent Auto 21.7 % (18.0-42.0); Mean Corpuscular HGB Conc 32.9 g/dL (32-36); Mean Corpuscular Hemoglobin 28.6 pg (27.0-31.0); Mean Corpuscular Volume 86.7 fL (78.0-102.0); Mean Platelet Volume 9.4 fl (8.7-11.0); Monocytes Absolute Auto 1.21 K/mm3 (0.10-0.90); Monocytes Percent Auto 8.8 % (2.0-11.0); Neutrophils Absolute Auto 9.29 K/mm3 (1.70-7.20); Neutrophils Percent Auto 67.7 % (50.0-70.0); Platelet Count Result 239 K/mm3 (150-420); Red Blood Count 5.81 M/mm3 (4.70-6.10); Red Cell Distribution Width 13.5 % (11.6-14.4); White Blood Count 13.7 K/mm3 (4.8-10.8)
[2024-06-25 20:57] LABS: D Dimer 0.38 mg/L (0.19-0.50)
[2024-06-25 21:03] LABS: Anion Gap 10 mmol/L (4-12); Blood Urea Nitrogen 27 mg/dL (7-18); Carbon Dioxide 33 mmol/L (21-32); Chloride 100 mmol/L (98-108); Estimated Glomerular Filt Rate 41; Glucose 80 mg/dL (70-99); Potassium 3.8 mmol/L (3.5-5.1); Sodium 143 mmol/L (136-145)
[2024-06-25 21:04] LABS: Alanine Aminotransferase 28 U/L (16-63); Albumin Level 4.2 g/dL (3.4-5.0); Alkaline Phosphatase 82 U/L (46-116); Aspartate Amino Transferase 14 U/L (15-37); Bilirubin,Total 0.6 mg/dL (0.00-1.00); Calcium 9.6 mg/dL (8.5-10.1); Magnesium 1.9 mg/dL (1.8-2.4); Osmolality Calculated 300 mOsm/kg (285-295); Total Protein 8.3 g/dL (6.4-8.2); Troponin I 46.3 ng/L (0.00-60.4)
[2024-06-25 22:54] LABS: Lactic Acid Reflex 1.5 mmol/L (0.4-2.0)
[2024-06-25] MEDS: SODIUM CHLORIDE 0.9% IV 1,000 ML 100 ML IV CONT (22:58)
--- NOTE | 2024-06-25 23:18 | PC.NURSE ---
PERSONAL ITEMS RETURNED TO PATIENT
[2024-06-26] VITALS (12 sets, daily range): BP systolic 81–126; BP diastolic 52–100; PULSE 84–92; RESP 16–24; O2SAT 96–100
[2024-06-26 00:37] LABS: Add Urine Microscopic? YES; Appearance Urine Clear (Clear); Bilirubin Urine Negative (Negative); Blood Urine Negative (Negative); Color Urine Yellow (Yellow); Glucose Urine UA Negative (Negative); Ketones Urine Negative (Negative); Leukocyte Esterase Ur Negative (Negative); Nitrate Urine Negative (Negative); Protein Urine 1+ (Negative); Specific Grav Ur >= 1.030 (1.010-1.020); Urobilinogen Urine 0.2 mg/dL (0.2-1.0); pH Urine 5.5 (5.0-8.0)
[2024-06-26 00:43] LABS: Amphetamine Screen Urine Positive (Negative); Barbiturate Screen Urine Negative (Negative); Benzodiazepines Screen Urine Negative (Negative); Cannabinoid Screen Urine Negative (Negative); Cocaine Screen Urine Negative (Negative); Methadone Screen Urine Negative (Negative); Opiate Screen Urine Negative (Negative); Phencyclidine Screen Urine Negative (Negative)
[2024-06-26 00:46] LABS: Amorphous Sediment Urine Few; Bacteria Urine Trace /hpf; Other Sediment Urine Spermatazoa /hpf; RBC Urine 0-2 /hpf (0-2); Squamous Epithelial Cell Urine Rare /hpf (Few); WBC Urine 0-3 /hpf (0-3)
[2024-06-26 02:08] LABS: Influenza A QL RT-PCR Negative (Negative); Influenza B QL RT-PCR Negative (Negative); RSV RNA, RT-PCR Negative (Negative); SARS-CoV-2 RNA PCR Negative (Negative)
--- NOTE | 2024-06-26 02:26 | PC.NURSE ---
ERP aware of pt vitals. No new orders at this time.
== END 2024-06-26 02:50 | disposition short-term general hospital (02) ==
PROVIDERS: Emergency Provider Emergency Medicine; PCP Family Medicine
DX: I42.9 Cardiomyopathy, unspecified (principal); I50.20 Unspecified systolic (congestive) heart failure; I25.9 Chronic ischemic heart disease, unspecified; F15.10 Other stimulant abuse, uncomplicated; I10 Essential (primary) hypertension; I25.2 Old myocardial infarction; F17.210 Nicotine dependence, cigarettes, uncomplicated
CPT/HCPCS: 36415; 71045; 80053; 80307; 81001; 83605; 83735; 84484; 85025; 85380; 87637; 93005; 96360; 96361; 99285; J7030

== ENCOUNTER 2024-06-26 04:42 | Observation (INO) | payer SELFPAY ==
[2024-06-26] VITALS (19 sets, daily range): BP systolic 101–122; BP diastolic 51–99; PULSE 67–90; RESP 16–20; TEMP 36.4–36.8; O2SAT 95–100; BMI 30.9
--- NOTE | ~2024-06-26 | US_ITS ---
EXAMINATION: US carotid duplex BI DATE: 06/26/2024 13:49 INDICATION: Near syncope TECHNIQUE: Grayscale, color Doppler, and pulsed Doppler images of the cervical carotid arteries were obtained. The degree of vessel stenosis is placed in one of the following categories: normal, <50%, 5 0-69%, >=70% but less than near-occlusion, near-occlusion, or total occlusion. Note that percent sten osis relative to normal distal artery lumen diameter is indirectly measured from velocity measurement s as described by Karlo, et al. Radiology 2003; 229:[id number]. COMPARISON: None. FINDINGS: RIGHT: The right common carotid artery (CCA) peak systolic velocity (PSV) is 75 cm/s. The right internal car otid artery (ICA) PSV is 66 cm/s. The right ICA end-diastolic velocity (EDV) is 26 cm/s. The right IC A/CCA PSV ratio is 0.9. Grayscale and color Doppler images yield an estimate of <50% diameter reducti on from plaque in the ICA. The external carotid artery (ECA) PSV is 72 cm/s. There is antegrade flow in the right vertebral artery. LEFT: The left CCA PSV is 81 cm/s. The left ICA PSV is 69 cm/s. The left ICA EDV is 27 cm/s. The left ICA/C CA PSV ratio is 0.9. Grayscale and color Doppler images yield an estimate of <50% diameter reduction from plaque in the ICA. The ECA PSV is 62 cm/s. There is antegrade flow in the left vertebral artery. IMPRESSION: 1. <50% stenosis from minimal plaque in the right internal carotid artery. 2. <50% stenosis from minimal plaque in the left internal carotid artery. Reviewed, dictated and finalized at location [facility] [facility] [employer]
[2024-06-26 04:42] LABS: Basophils Absolute Auto 0.1 K/mm3 (0.0-0.1); Basophils Percent Auto 0.5 % (0.2-1.2); Eosinophils Absolute Auto 0.1 K/mm3 (0-0.3); Eosinophils Percent Auto 1.2 % (0-4.4); Hematocrit 44.5 % (42.0-52.0); Hemoglobin 14.9 g/dL (14.0-18.0); Immature Granulocyte Absolute 0.03 K/mm3 (0.00-0.031); Immature Granulocyte Percent A 0.3 % (0-0.5); Lymphocytes Absolute Auto 3.06 K/mm3 (0.9-3.2); Lymphocytes Percent Auto 27.2 % (18.3-44.2); Mean Corpuscular HGB Conc 33.5 g/dl (32-36); Mean Corpuscular Hemoglobin 29.7 pg (26-34); Mean Corpuscular Volume 88.8 fl (80-100); Mean Platelet Volume 9.4 fl (7.4-10.4); Monocytes Absolute Auto 1.2 K/mm3 (0.1-0.6); Monocytes Percent Auto 10.8 % (2.6-8.5); Neutrophils Absolute Auto 6.7 K/mm3 (1.3-6.7); Platelet Count Result 195 k/mm3 (150-375); Red Blood Count 5.01 M/mm3 (4.6-6.20); Red Cell Distribution Width 13.6 % (11.5-14.5); White Blood Count 11.2 K/mm3 (4.5-10.0)
[2024-06-26 05:03] LABS: Alanine Aminotransferase 20 U/L (6-50); Albumin Level 4.1 g/dL (3.5-5.1); Alkaline Phosphatase 64 U/L (38-126); Anion Gap 12 mmol/L (4-12); Aspartate Amino Transferase 21 U/L (17-59); Bilirubin,Total 0.4 mg/dL (0.2-1.3); Blood Urea Nitrogen 29 mg/dL (9-20); Calcium 8.9 mg/dL (8.4-10.2); Carbon Dioxide 24 mmol/L (22-30); Chloride 102 mmol/L (98-107); Estimated CRCL calculation 89 ml/min; Estimated Glomerular Filt Rate > 60; Glucose 127 mg/dL (65-110); Magnesium 2.1 mg/dL (1.6-2.3); Phosphorus 4.3 mg/dL (2.5-4.5); Potassium 4.1 mmol/L (3.4-5.0); Sodium 138 mmol/L (137-145)
[2024-06-26 05:08] LABS: NT Pro B Type Natriuretic Pept 872 pg/mL (19.9-100); Troponin I 0.013 ng/mL (0.000-0.034)
--- NOTE | 2024-06-26 08:04 | P.CONCA_ITS ---
History of Present Illness History of Present Illness Consult date/time: 06/26/24 08:04 Reason For Visit: Cardiomyopathy Narrative: 44-year-old male with history of recent [place], systolic heart failure, seizure, prior substance abuse with methamphetamine, heroin and Xanax, hypertension, renal stones presents with chief complaints of Review of Systems 2 Review of Systems: A complete review of systems was performed and negative other than those mentioned in the [facility] Past Medical History Medical History Recent heart attack 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, 2014 Substance abuse previous methamphetamine, heroin, and Xanax abuse/use Hypertension Kidney stones Family History Family History Mother Acute myocardial infarction Social History Social History Smoking packs per day: 0.5 Smoking cigarettes per day: 10.0 Years smoked: 30 Smoking pack-years: 15.00 Smoking status: Current every day smoker Second hand tobacco smoke exposure: Yes Alcohol intake: former Substance use: current Substance use type: marijuana and methamphetamine Other substance usage details: 06/25/24 Do You Feel Safe in your Home?: Yes Lack of Transportation: YES Lack of Food: Sometimes True Current Housing: I Have Housing Concerned About Future Housing: YES Difficulty Paying Gas/Electric Bills: YES Difficulty Paying for Meds: YES Currently Unemployed: YES Education: Trade/Vocational Certificate Difficulty w/ Childcare or Family Care: YES Spiritual care concerns: No Meds Home Medications and Allergies Home Medications ?Medication ?Instructions ?Recorded ?Confirmed ?Type aspirin 81 mg tablet,delayed 81 mg PO QAM #30 tabs 06/21/24 06/26/24 Rx release carvedilol 3.125 mg tablet (Coreg) 3.125 mg PO Q12HR #180 tabs 06/21/24 06/26/24 Rx dapagliflozin propanediol 10 mg 10 mg PO DAILY 06/21/24 06/26/24 History tablet (Farxiga) furosemide 40 mg tablet 40 mg PO DAILY #90 tabs 06/21/24 06/26/24 Rx losartan 25 mg tablet 25 mg PO DAILY #90 tabs 06/21/24 06/26/24 Rx modafinil 100 mg tablet 100 mg PO QAM #30 tabs 06/21/24 06/26/24 Rx spironolactone 25 mg tablet 25 mg PO DAILY #90 tabs 06/21/24 06/26/24 Rx Allergies Allergy/AdvReac Type Severity Reaction Status Date / Time No Known Drug Allergies Allergy Mild Unknown Verified 06/26/24 01:43 Vital Signs Vital Signs - 24 hr 06/26/24 03:56 06/26/24 03:57 06/26/24 04:00 Temperature 36.8 C Pulse Rate 89 89 67 Respiratory Rate 16 17 Blood Pressure 101/51 L Pulse Oximetry 100 Oxygen Delivery Room Air 06/26/24 07:00 Temperature Pulse Rate 90 Respiratory Rate Blood Pressure Pulse Oximetry Oxygen Delivery Results Labs and Meds 06/26/24 04:28 06/26/24 04:28 Lab results: Cardiac Enzymes 06/26/24 Range/Units 04:28 AST 21 (17-59) U/L Troponin I 0.013 (0.000-0.034) ng/mL CBC 06/26/24 Range/Units 04:28 WBC 11.2 H (4.5-10.0) K/mm3 RBC 5.01 (4.6-6.20) M/mm3 Hgb 14.9 (14.0-18.0) g/dL Hct 44.5 (42.0-52.0) % Plt Count 195 (150-375) k/mm3 Lymph # (Auto) 3.06 (0.9-3.2) K/mm3 [place] # (Auto) 1.2 H (0.1-0.6) K/mm3 Eos # (Auto) 0.1 (0-0.3) K/mm3 Baso # (Auto) 0.1 (0.0-0.1) K/mm3 Comprehensive Metabolic Panel 06/26/24 Range/Units 04:28 Sodium 138 (137-145) mmol/L Potassium 4.1 (3.4-5.0) mmol/L Chloride 102 (98-107) mmol/L Carbon Dioxide 24 (22-30) mmol/L BUN 29 H (9-20) mg/dL Creatinine 1.06 (0.7-1.3) mg/dL Glucose 127 H (65-110) mg/dL Calcium 8.9 (8.4-10.2) mg/dL AST 21 (17-59) U/L ALT 20 (6-50) U/L Alkaline Phosphatase 64 (38-126) U/L Total Protein 7.0 (6.3-8.2) g/dL Albumin 4.1 (3.5-5.1) g/dL Intake and Output 06/25/24 06/26/24 06/26/24 23:59 07:59 15:59 Other: # Incontinent Voids 1 Patient Weight 06/26/24 23:59 Weight 95 kg
--- NOTE | 2024-06-26 11:05 | PM.CNCAR ---
Assessment and Plan Assessment and plan (1) Dizziness: Code(s): R42 - Dizziness and giddiness Status: Acute Assessment and Plan: Probably due to BP and volume status. Monitor BP. He is not volume overloaded, therefore will stop Lasix. (2) HFrEF (heart failure with reduced ejection fraction): Code(s): I50.20 - Unspecified systolic (congestive) heart failure Status: Acute Assessment and Plan: Resume heart failure medication including Coreg, Losartan, Jardiance and Spironolactone. He has life vest on to prevent sudden cardiac arrest. Will recheck echo in 2 months. (3) Smoking: Code(s): F17.200 - Nicotine dependence, unspecified, uncomplicated Status: Acute Assessment and Plan: Counseled regarding smoking cessation. (4) Substance abuse: Code(s): F19.10 - Other psychoactive substance abuse, uncomplicated Status: Acute History of Present Illness History of Present Illness Consult date/time: 06/26/24 11:05 Reason For Visit: Cardiomyopathy Narrative: 44 yr old man who is my regular cardiology patient presents to ER due to dizziness. He has a history of systolic dysfunction probably due to substance abuse, smoking, methamphetamine use, hypertension. States in last 2 days he had intermittent dizziness in upright position and sweating. He would like referral to substance rehab facility as he would like to quit methamphetamine and he was referred to one. He is smoking it to avoid withdrawals. He smokes 2 cigarettes per day. States he can walk miles without any problems. Denies orthopnea, PND, edema, dizziness, palpitations. Cardiovascular Procedures Hand Therapist:: 05/08/24 [facility] with Dr. Suarez: Mild disease of mid LAD, mid RCA, luminal irregularities of LAD, LCx, OM. Echo/MUGA:: 05/07/24 Echo: EF<15%, severe LVE, mod LVH, diastolic dsyfunction (E/e' 16), RV hypokinesis with TAPSE 1.1 cm, severe LAE, mild THUY, trace pericardial effusion. Electrophysiology:: 05/06/24 EKG: Sinus rhythm, cannot r/o septal infarct, age indeterminate. Stress Tests:: 05/07/24 Lexiscan myoview: Negative. EF 24%. Review of Systems Review of Systems: All systems reviewed & are unremarkable except as noted in HPI and below Constitutional: Constitutional: Reports as per HPI, Denies chills and Denies fever(s) Cardiovascular: Cardiovascular: Reports as per HPI and Denies chest pain Respiratory: Respiratory: Reports as per HPI and Denies dyspnea Gastrointestinal: Gastrointestinal: Reports as per HPI and Denies abdominal pain Genitourinary: Genitourinary: Reports as per HPI and Denies dysuria Musculoskeletal: Musculoskeletal: Reports as per HPI Neurologic: Reports as per HPI, Reports dizziness and Denies syncope [facility] Past Medical History Medical History Recent heart attack 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, 2014 Substance abuse previous methamphetamine, heroin, and Xanax abuse/use Hypertension Kidney stones Family History Family History Mother Acute myocardial infarction Social History Social History Smoking packs per day: 0.5 Smoking cigarettes per day: 10.0 Years smoked: 30 Smoking pack-years: 15.00 Smoking status: Current every day smoker Second hand tobacco smoke exposure: Yes Alcohol intake: former Substance use: current Substance use type: marijuana and methamphetamine Other substance usage details: 06/25/24 Do You Feel Safe in your Home?: Yes Lack of Transportation: YES Lack of Food: Sometimes True Current Housing: I Have Housing Concerned About Future Housing: YES Difficulty Paying Gas/Electric Bills: YES Difficulty Paying for Meds: YES Currently Unemployed: YES Education: Trade/Vocational Certificate Difficulty w/ Childcare or Family Care: YES Spiritual care concerns: No Meds Home Medications and Allergies Home Medications ?Medication ?Instructions ?Recorded ?Confirmed ?Type aspirin 81 mg tablet,delayed 81 mg PO QAM #30 tabs 06/21/24 06/26/24 Rx release carvedilol 3.125 mg tablet (Coreg) 3.125 mg PO Q12HR #180 tabs 06/21/24 06/26/24 Rx dapagliflozin propanediol 10 mg 10 mg PO DAILY 06/21/24 06/26/24 History tablet (Farxiga) furosemide 40 mg tablet 40 mg PO DAILY #90 tabs 06/21/24 06/26/24 Rx losartan 25 mg tablet 25 mg PO DAILY #90 tabs 06/21/24 06/26/24 Rx modafinil 100 mg tablet 100 mg PO QAM #30 tabs 06/21/24 06/26/24 Rx spironolactone 25 mg tablet 25 mg PO DAILY #90 tabs 06/21/24 06/26/24 Rx Allergies Allergy/AdvReac Type Severity Reaction Status Date / Time No Known Drug Allergies Allergy Mild Unknown Verified 06/26/24 01:43 Vital Signs Vital Signs - 24 hr 06/26/24 03:56 06/26/24 03:57 06/26/24 04:00 Temperature 98.2 F Pulse Rate 89 89 67 Respiratory Rate 16 17 Blood Pressure 101/51 L Pulse Oximetry 100 Oxygen Delivery Room Air 06/26/24 07:00 06/26/24 08:19 06/26/24 08:50 Temperature 98.2 F Pulse Rate 90 86 86 Respiratory Rate 20 Blood Pressure 105/67 Pulse Oximetry 100 Oxygen Delivery 06/26/24 10:15 Temperature Pulse Rate 84 Respiratory Rate Blood Pressure Pulse Oximetry Oxygen Delivery Exam Const: General: cooperative, healthy appearing and comfortable Resp: Auscultation: clear to auscultation bilaterally, no crackles, no rales, no rhonchi and no wheezes Cardio: Rate: regular rate Rhythm: regular rhythm Heart sounds: no murmurs Peripheral pulses: dorsalis pedis present GI: GI Palp: No abdominal tenderness and Yes Soft to palpation Neuro: General: oriented to person, oriented to place and oriented to time Extrem: Right lower extremity: no edema Left lower extremity: no edema Results Labs and Meds 06/26/24 04:28 06/26/24 04:28 Lab results: Cardiac Enzymes 06/26/24 Range/Units 04:28 AST 21 (17-59) U/L Troponin I 0.013 (0.000-0.034) ng/mL CBC 06/26/24 Range/Units 04:28 WBC 11.2 H (4.5-10.0) K/mm3 RBC 5.01 (4.6-6.20) M/mm3 Hgb 14.9 (14.0-18.0) g/dL Hct 44.5 (42.0-52.0) % Plt Count 195 (150-375) k/mm3 Lymph # (Auto) 3.06 (0.9-3.2) K/mm3 [place] # (Auto) 1.2 H (0.1-0.6) K/mm3 Eos # (Auto) 0.1 (0-0.3) K/mm3 Baso # (Auto) 0.1 (0.0-0.1) K/mm3 Comprehensive Metabolic Panel 06/26/24 Range/Units 04:28 Sodium 138 (137-145) mmol/L Potassium 4.1 (3.4-5.0) mmol/L Chloride 102 (98-107) mmol/L Carbon Dioxide 24 (22-30) mmol/L BUN 29 H (9-20) mg/dL Creatinine 1.06 (0.7-1.3) mg/dL Glucose 127 H (65-110) mg/dL Calcium 8.9 (8.4-10.2) mg/dL AST 21 (17-59) U/L ALT 20 (6-50) U/L Alkaline Phosphatase 64 (38-126) U/L Total Protein 7.0 (6.3-8.2) g/dL Albumin 4.1 (3.5-5.1) g/dL Intake and Output 06/25/24 06/26/24 06/26/24 23:59 07:59 15:59 Intake Total 240 Balance 240 Intake: Oral 240 Other: # Incontinent Voids 1 Patient Weight 06/26/24 23:59 Weight 95 kg
[2024-06-26] MEDS: EMPAGLIFLOZIN 10 MG TABLET BY MOUTH (13:01)
[2024-06-26] MEDS: modafiniL (*CRX) 100 MG TABLET PO (13:01)
[2024-06-26] MEDS: ASPIRIN 81 MG ENTERIC TABLET PO (13:02)
--- NOTE | 2024-06-26 13:13 | P.HP_ITS ---
H&P: HPI History of Present Illness Date/Time: 06/26/24 13:13 Chief Complaint: Dizziness. Narrative: 44-year-old male with history of nonischemic cardiomyopathy, seizures, substance abuse hypertension who presented to the ER with dizziness. he noted he was driving yesterday at about 8 pm when he started feeling dizzy causing him to drive straight to the ER for acute evaluation. Denies any chest pain, shortness for breath, no passing non-small trauma, no vomiting no abdominal pain no diarrhea dysuria focal symptoms. Patient underwent cardiac catheterization on 4th of last month which showed no significant coronary artery disease. Denies any drug use however patient tested positive to affectively. Temperature 97.8?, pulse rate 89, blood pressure 94/66 saturation 5% on BiPAP. Patient had 2 episodes of hypotension DNR. UDS positive for amphetamine, flu RSV and COVID negative. NT proBNP 872. WBC 11.2. Chest x-ray no acute changes. cardiology consulted. Review of Systems Review of Systems: All other systems reviewed and negative except as noted in the history above [facility] Past Medical History Medical History Recent heart attack 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, 2014 Substance abuse previous methamphetamine, heroin, and Xanax abuse/use Hypertension Kidney stones Family History Family History Mother Acute myocardial infarction Social History Social History Smoking packs per day: 0.5 Smoking cigarettes per day: 10.0 Years smoked: 30 Smoking pack-years: 15.00 Smoking status: Current every day smoker Second hand tobacco smoke exposure: Yes Alcohol intake: former Substance use: current Substance use type: marijuana and methamphetamine Other substance usage details: 06/25/24 Do You Feel Safe in your Home?: Yes Lack of Transportation: YES Lack of Food: Sometimes True Current Housing: I Have Housing Concerned About Future Housing: YES Difficulty Paying Gas/Electric Bills: YES Difficulty Paying for Meds: YES Currently Unemployed: YES Education: Trade/Vocational Certificate Difficulty w/ Childcare or Family Care: YES Spiritual care concerns: No Meds Home Medications and Allergies Home Medications ?Medication ?Instructions ?Recorded ?Confirmed ?Type aspirin 81 mg tablet,delayed 81 mg PO QAM #30 tabs 06/21/24 06/26/24 Rx release carvedilol 3.125 mg tablet (Coreg) 3.125 mg PO Q12HR #180 tabs 06/21/24 06/26/24 Rx dapagliflozin propanediol 10 mg 10 mg PO DAILY 06/21/24 06/26/24 History tablet (Farxiga) furosemide 40 mg tablet 40 mg PO DAILY #90 tabs 06/21/24 06/26/24 Rx losartan 25 mg tablet 25 mg PO DAILY #90 tabs 06/21/24 06/26/24 Rx modafinil 100 mg tablet 100 mg PO QAM #30 tabs 06/21/24 06/26/24 Rx spironolactone 25 mg tablet 25 mg PO DAILY #90 tabs 06/21/24 06/26/24 Rx Allergies Allergy/AdvReac Type Severity Reaction Status Date / Time No Known Drug Allergies Allergy Mild Unknown Verified 06/26/24 01:43 Vital Signs Vital Signs - 24 hr 06/26/24 03:56 06/26/24 03:57 06/26/24 04:00 Temperature 98.2 F Pulse Rate 89 89 67 Respiratory Rate 16 17 Blood Pressure 101/51 L Pulse Oximetry 100 Oxygen Delivery Room Air 06/26/24 07:00 06/26/24 08:19 06/26/24 08:50 Temperature 98.2 F Pulse Rate 90 86 86 Respiratory Rate 20 Blood Pressure 105/67 Pulse Oximetry 100 Oxygen Delivery 06/26/24 10:15 06/26/24 11:54 Temperature 97.6 F Pulse Rate 84 82 Respiratory Rate 18 Blood Pressure 104/67 Pulse Oximetry 98 Oxygen Delivery Exam Narrative: General: alert and comfortable Eyes: EOMI, PERRLA ENNT External ears normal, Neck is supple, no masses, Respiratory systems: Clear to auscultation Cardiovascular S1, S2, normal rhythm, no murmur, rub, or gallop; no thrill or palpable murmurs on palpation. Gastrointestinal: soft, non-tender, and non-distended abdomen with no masses; BS present Skin: no rash, lesions, ulcerations, subcutaneous nodules or induration Musculoskeletal: no abnormality and no tenderness, normal ROM Neurologic: Alert and oriented x3, non focal Mental Status Exam: normal affect H&P: Results Labs Labs: Short CBC 06/26/24 Range/Units 04:28 WBC 11.2 H (4.5-10.0) K/mm3 Hgb 14.9 (14.0-18.0) g/dL Hct 44.5 (42.0-52.0) % Plt Count 195 (150-375) k/mm3 BMP 06/26/24 04:28 Sodium 138 Potassium 4.1 Chloride 102 Carbon Dioxide 24 BUN 29 H Creatinine 1.06 Glucose 127 H Calcium 8.9 Cardiac Enzymes 06/26/24 Range/Units 04:28 Troponin I 0.013 (0.000-0.034) ng/mL Liver Function 06/26/24 Range/Units 04:28 Total Bilirubin 0.4 (0.2-1.3) mg/dL AST 21 (17-59) U/L ALT 20 (6-50) U/L Alkaline Phosphatase 64 (38-126) U/L Albumin 4.1 (3.5-5.1) g/dL Assessment and Plan Assessment and plan (1) HFrEF (heart failure with reduced ejection fraction): Code(s): I50.20 - Unspecified systolic (congestive) heart failure Status: Acute (2) Near syncope: Code(s): R55 - Syncope and collapse Status: Acute Plan Near syncopal Likely from hypotension, given cardiac meds. Cardiology already evaluated and recommended holding Lasix continue current medications Continue Coreg, spironolactone, losartan and Jardiance Non ischemic cardiomyopathy likely from substance abuse UDS positive for amphetamine cardiac cath in 05/08/24 no coronary artery disease continue above meds monitor closely Seizures Not on home meds HTN continue above meds and monitor vital signs DVT prophylaxis on Sq Lvoenox Full code surrogate decision [facility] Advance Care Plan I have confirmed that the patient's Advanced Care Plan is present, code status is documented, or surrogate decision maker is listed in patient medical record.: Yes Medication Reconciliation I have utilized all available resources to obtain, update and review the patients current medications (includes all prescriptions, OTC, herbals, cannabis, and nutritional supplements).: Yes
[2024-06-26] MEDS: carvediloL 3.125 MG TABLET PO ×2 (14:16→20:05)
[2024-06-26] MEDS: ENOXAPARIN 40 MG/0.4 ML SYRINGE SUB-Q (14:17)
[2024-06-26] MEDS: NICOTINE (*PBKC) 21 MG PATCH 1 PATCH TRANSDERM (14:32)
--- NOTE | 2024-06-26 20:08 | PC.NURSE ---
2000: Patient's LifeVest removed per policy.
[2024-06-27] VITALS (8 sets, daily range): BP systolic 112; BP diastolic 71–73; PULSE 76–89; RESP 16–20; TEMP 36.5–36.6; O2SAT 97–100
--- NOTE | 2024-06-27 07:50 | PM.PNCARD ---
Progress Note: A&P Assessment and Plan (1) Dizziness: Code(s): R42 - Dizziness and giddiness Status: Acute Assessment and Plan: Resolved since stopping Lasix. Probably due to BP and volume status. Monitor BP. May d/c home from cardiology standpoint and keep f/u appointment he already has. (2) HFrEF (heart failure with reduced ejection fraction): Code(s): I50.20 - Unspecified systolic (congestive) heart failure Status: Acute Assessment and Plan: Resume heart failure medication including Coreg, Losartan, Jardiance and Spironolactone. He has life vest on to prevent sudden cardiac arrest. Will recheck echo in 2 months. (3) Smoking: Code(s): F17.200 - Nicotine dependence, unspecified, uncomplicated Status: Acute Assessment and Plan: Counseled regarding smoking cessation. (4) Substance abuse: Code(s): F19.10 - Other psychoactive substance abuse, uncomplicated Status: Acute Assessment and Plan: Referred to facility in [place]. Will need for them to make contact with each other. Subjective Date/time seen: 06/27/24 07:50 Interval history: No more dizziness. Denies chest pain or sob. Exam Const: General: cooperative, healthy appearing and comfortable Orientation/consciousness: oriented to person, oriented to place and oriented to time Resp: Auscultation: clear to auscultation bilaterally, no crackles, no rales, no rhonchi and no wheezes Cardio: Rate: regular rate Rhythm: regular rhythm Heart sounds: no murmurs Peripheral pulses: dorsalis pedis present Neuro: General: oriented to person, oriented to place and oriented to time Extrem: Right lower extremity: no edema Left lower extremity: no edema Objective Data Vital Signs Vital Signs: Vital Signs - 24 hr 06/26/24 08:19 06/26/24 08:50 06/26/24 10:15 Temperature 98.2 F Pulse Rate 86 86 84 Respiratory Rate 20 Blood Pressure 105/67 Pulse Oximetry 100 Oxygen Delivery 06/26/24 11:54 06/26/24 12:00 06/26/24 14:00 Temperature 97.6 F Pulse Rate 82 80 84 Respiratory Rate 18 Blood Pressure 104/67 Pulse Oximetry 98 Oxygen Delivery 06/26/24 14:16 06/26/24 16:21 06/26/24 16:40 Temperature 97.5 F L Pulse Rate 89 84 82 Respiratory Rate 18 Blood Pressure 116/69 Pulse Oximetry 99 Oxygen Delivery 06/26/24 18:00 06/26/24 19:50 06/26/24 20:00 Temperature 97.6 F Pulse Rate 81 83 79 Respiratory Rate 18 Blood Pressure 122/77 Pulse Oximetry 95 Oxygen Delivery 06/26/24 20:05 06/26/24 22:00 06/26/24 23:46 Temperature 98.3 F Pulse Rate 79 81 77 Respiratory Rate 18 Blood Pressure 116/99 H Pulse Oximetry 96 Oxygen Delivery 06/27/24 00:00 06/27/24 02:00 06/27/24 03:48 Temperature Pulse Rate 89 80 Respiratory Rate Blood Pressure Pulse Oximetry Oxygen Delivery Room Air 06/27/24 04:00 06/27/24 04:32 06/27/24 06:00 Temperature 97.7 F Pulse Rate 83 78 79 Respiratory Rate 16 Blood Pressure 112/73 Pulse Oximetry 97 Oxygen Delivery Intake/Output Intake/Output: Intake & Output 06/24/24 06/25/24 06/26/24 06/27/24 23:59 23:59 23:59 23:59 Intake Total 1670 790 Output Total 800 Balance 1670 -10 Meds/Results Medications: Active Medications Generic Name Dose Route Start Last Admin Trade Name Carsonq PRN Reason Stop Dose Admin Aspirin 81 mg 06/26/24 12:50 06/26/24 13:02 Aspirin 81 Mg Enteric Tablet PO 81 mg QAM ROSANA Administration Carvedilol 3.125 mg 06/26/24 13:15 06/26/24 20:05 Carvedilol 3.125 Mg Tablet PO 3.125 mg Q12HR ROSANA Administration Empagliflozin 10 mg 06/26/24 12:50 06/26/24 13:01 Empagliflozin 10 Mg Tablet BY MOUTH 10 mg DAILY ROSANA Administration Enoxaparin Sodium 40 mg 06/26/24 13:30 06/26/24 14:17 Enoxaparin 40 Mg/0.4 Ml Syringe SUB-Q 40 mg DAILY ROSANA Administration Losartan Potassium 25 mg 06/27/24 09:00 Losartan Potassium 25 Mg Tablet PO DAILY ROSANA Modafinil 100 mg 06/26/24 12:50 06/26/24 13:01 Modafinil (*Crx) 100 Mg Tablet PO 100 mg QAM ROSANA Administration Nicotine 1 patch 06/26/24 14:25 06/26/24 14:32 Nicotine (*Pbkc) 21 Mg Patch TRANSDERM 1 patch DAILY ROSANA Administration Perflutren Lipid Microsphere 0 ml 06/26/24 13:07 Perflutren Lipid Microspheres 1.5 Ml Vial Diluted To 10 Ml Total Volume IV PUSH 06/29/24 13:07 ONCE PRN adequate visualization Protocol Spironolactone 25 mg 06/27/24 09:00 Spironolactone 25 Mg Tablet PO DAILY [facility] Radiology Results: ITS Impressions Carotid Doppler Study 06/26/24 14:01 IMPRESSION: 1. <50% stenosis from minimal plaque in the right internal carotid artery. 2. <50% stenosis from minimal plaque in the left internal carotid artery.
[2024-06-27] MEDS: LOSARTAN POTASSIUM 25 MG TABLET PO (08:59)
[2024-06-27] MEDS: ASPIRIN 81 MG ENTERIC TABLET PO (08:59)
[2024-06-27] MEDS: EMPAGLIFLOZIN 10 MG TABLET BY MOUTH (08:59)
[2024-06-27] MEDS: carvediloL 3.125 MG TABLET PO (09:00)
[2024-06-27] MEDS: SPIRONOLACTONE 25 MG TABLET PO (09:00)
[2024-06-27] MEDS: NICOTINE (*PBKC) 21 MG PATCH 1 PATCH TRANSDERM (09:01)
--- NOTE | 2024-06-27 09:58 | PM.DS ---
DS: Admitting Diagnosis Discharge Date 06/27/24 Admitting Diagnosis dizziness DS: Discharge Diagnosis Discharge Diagnosis (1) Near syncope: Code(s): R55 - Syncope and collapse Status: Acute DS: Summary Hospital Course Hospital Course: 44-year-old male with history of nonischemic cardiomyopathy, seizures, substance abuse hypertension who presented to the ER with dizziness. he noted he was driving yesterday at about 8 pm when he started feeling dizzy causing him to drive straight to the ER for acute evaluation. Denies any chest pain, shortness for breath, no passing non-small trauma, no vomiting no abdominal pain no diarrhea dysuria focal symptoms. Patient underwent cardiac catheterization on 4th of last month which showed no significant coronary artery disease. Denies any drug use however patient tested positive to affectively. Temperature 97.8?, pulse rate 89, blood pressure 94/66 saturation 5% on BiPAP. Patient had 2 episodes of hypotension DNR. UDS positive for amphetamine, flu RSV and COVID negative. NT proBNP 872. WBC 11.2. Chest x-ray no acute changes. cardiology consulted. Cardiology evaluatd patient and discontinued lasix, other medications Coreg, jardiance, Spironolacton eand Losartan were started and patient tolerated them well. BP this morning 112/71. Patient discharged to follow up with PCP in 3-5 days and cardiology as instructed Time Spent with Patient Time attestation: Total time spent providing and/or coordinating discharge services: Discharge Plan Discharge Attending physician on discharge: Alysia Guardado Consulting providers: Royal Bruno Discharging Clinician: Alysia Guardado Anticipated Discharge Date/Time: 06/27/24 09:57 Patient Disposition: Home, Self-Care Activity: as tolerated Diet: as tolerated Patient Instructions: Antibiotic Form, Heart Failure (GEN) Patient Language: Citizen Of [place] Stand Alone Forms: General Discharge Information Follow-up/Referrals: Kevin Dorantes DO [Primary Care Provider] - (F/u with PCP in 3-5 days ) Royal Bruno DO [Physician] - (F/u with cardiology as instructed ) Discharge Medications: Continued aspirin 81 mg tablet,delayed release (DR/EC) 81 mg PO QAM Qty: 30 0RF carvedilol [Coreg] 3.125 mg tablet 3.125 mg PO Q12HR Qty: 180 3RF losartan 25 mg tablet 25 mg PO DAILY Qty: 90 3RF spironolactone 25 mg tablet 25 mg PO DAILY Qty: 90 3RF dapagliflozin propanediol [Farxiga] 10 mg tablet 10 mg PO DAILY modafinil 100 mg tablet 100 mg PO QAM Qty: 30 1RF Discontinued furosemide 40 mg tablet 40 mg PO DAILY Qty: 90 3RF Date of admission: 06/26/24 03:19 Primary Care Provider: Kevin Dorantes Admitting Provider: Denia Ayala Attending physician on admission: Denia Ayala Condition: Improved
--- OUTSIDE RECORDS SUMMARY | 2024-06-27 21:08 | XMS_ITS | Clinical Summary ---
Author Organization [facility] [place] [address] [facility] [address] Address [address] [place] [address] Care Team Providers Care Acupuncturist Name Role Phone Unknown, Notinfile Primary Care Provider Unavail able Allergies No known active allergies Active Problems Problem Noted Date Diagnosed Date Methamphetamine abuse (CMS/HCC) 05/18/2024 Encounters Date Type Department Care Team Description 05/19/2024 4:30 PM INSTRUCTIONAL INTERVENTIONIST - 05/19/2024 8:17 PM [facility] Emergency [facility] Emergency Department [address] [place] [address] Gonzalo Mortensen MD Shortness of breath (Primary Dx); Opioid use disorder; Influenza Discharge Disposition: Discharge to home or self care 05/18/2024 5:01 PM INSTRUCTIONAL INTERVENTIONIST - 05/18/2024 10:18 PM [facility] Emergency [address] [address] Garrett Valenzuela MD Methamphetamine abuse (CMS/HCC) (HCC) (Primary Dx); Fentanyl dependence (CMS/HCC) (HCC); Left against medical advice Discharge Disposition: Left Against Medical Advice 05/13/2024 Orders Only [facility] Cardiology [address] [place] [address] Bettina Suarez MD from Last 3 Months Social History Tobacco Use Types Packs/Day Years Used Date Smoking Tobacco: Never Assessed Personal Safety Answer Date Recorded Have you ever been in or are you currently in a harmful physical or emotional relationship or is someone making you feel afraid or unsafe? Denies 05/19/2024 Sex and Gender Information Value Date Recorded Sex Assigned at Not on file Legal Sex Male 9:51 AM INSTRUCTIONAL INTERVENTIONIST Gender Identity Not on file Sexual Orientation Not on file Last Filed Vital Signs Vital Sign Reading Time Taken Comments Blood Pressure 98/59 05/19/2024 8:00 PM INSTRUCTIONAL INTERVENTIONIST Pulse 87 05/19/2024 8:00 PM INSTRUCTIONAL INTERVENTIONIST Temperature 36.8 ??C (98.2 ??F) 05/19/2024 3:54 PM CS T Respiratory Rate 20 05/19/2024 8:00 PM INSTRUCTIONAL INTERVENTIONIST Oxygen Saturation 98% 05/19/2024 8:00 PM INSTRUCTIONAL INTERVENTIONIST Inhaled Oxygen Concentration - - Weight 95.3 kg (210 lb) 05/19/2024 3:49 PM INSTRUCTIONAL INTERVENTIONIST Height 175.3 cm (5' 9 ) 05/19/2024 3:49 PM INSTRUCTIONAL INTERVENTIONIST Body Mass Index 31.01 05/19/2024 3:49 PM INSTRUCTIONAL INTERVENTIONIST Plan of Treatment Health Maintenance Due Date Last Done Comments Colon Cancer Screening-Colonoscopy 1979 Depression Screening 1979 Hepatitis C Screening 1979 Hepatitis B Screening 1997 Regular Well Visit/Exam 18-64 1997 Covid-19 Vaccine (3 - 2023-2 5 season) 2024 01/16/2021, 12/26/2020 Influenza Vaccine (#1) 2024 DTaP/Tdap/Td Vaccine (2 - Td or Tdap) 04/11/2033 04/11/2023 HPV Vaccines Aged Out No longer eligi ble based on patient's age to complete this topic Pneumococcal vaccine <65 Aged Out No longer eligible based on patient's age to complete this topic Procedures Procedure Name Priority Date/Time Associated Diagnosis Comments TROPONIN I HIGH-SENSITIVITY 2-HOUR Timed 05/19/2024 7:24 PM INSTRUCTIONAL INTERVENTIONIST ECG 12-LEAD STAT 05/19/2024 7:18 PM INSTRUCTIONAL INTERVENTIONIST EGFR STAT 05/19/2024 5:42 PM INSTRUCTIONAL INTERVENTIONIST DIFFERENTIAL AUTO STAT 05/19/2024 5:4 2 PM INSTRUCTIONAL INTERVENTIONIST SEPSIS LACTATE WITH REFLEX STAT 05/19/2024 5:42 PM INSTRUCTIONAL INTERVENTIONIST TROPONIN I HIGH-SENSITIVITY SERIES (BASELINE, 2HR, 4HR, 6HR) STAT 05/19/2024 5:42 PM INSTRUCTIONAL INTERVENTIONIST COMPREHENSIVE METABOLIC PANEL STAT 05/19/2024 5:42 PM INSTRUCTIONAL INTERVENTIONIST CBC WITH AUTO DIFFERENTIAL STAT 05/19/2024 5:42 PM INSTRUCTIONAL INTERVENTIONIST RESPIRATORY PATHOGEN PANEL Routine 05/19/2024 5:42 PM INSTRUCTIONAL INTERVENTIONIST AMPHETAMINE, URINE, CONFIRMATION Routine 05/19/2024 5:19 PM INSTRUCTIONAL INTERVENTIONIST DRUGS OF ABUSE SCREEN, URINE WITH REFLEX CONFIRMATION Routine 05/19/2024 5:19 PM INSTRUCTIONAL INTERVENTIONIST URINALYSIS AND REFLEX TO MICROSCOPIC AND CULTURE STAT 05/19/2024 5:19 PM INSTRUCTIONAL INTERVENTIONIST XR CHEST PA LATERAL 2 VIEWS ED 05/19/2024 4:26 PM INSTRUCTIONAL INTERVENTIONIST ECG 12-LEAD STAT 05/19/2024 3:57 PM INSTRUCTIONAL INTERVENTIONIST TROPONIN T HIGH-SENSITIVITY STAT 05/18/2024 8:32 PM INSTRUCTIONAL INTERVENTIONIST DRUGS OF ABUSE SCREEN, URINE WITH REFLEX CONFIRMATION STAT 05/18/2024 8:32 PM INSTRUCTIONAL INTERVENTIONIST EGFR STAT 05/18/2024 5:01 PM INSTRUCTIONAL INTERVENTIONIST DIFFERENTIAL AUTO STAT 05/18/2024 5:0 1 PM INSTRUCTIONAL INTERVENTIONIST SEPSIS LACTATE WITH REFLEX STAT 05/18/2024 5:01 PM INSTRUCTIONAL INTERVENTIONIST TROPONIN T HIGH-SENSITIVITY SERIES (BASELINE, 2HR, 4HR, 6HR) STAT 05/18/2024 5:01 PM INSTRUCTIONAL INTERVENTIONIST ETHANOL STAT 05/18/2024 5:01 PM INSTRUCTIONAL INTERVENTIONIST COMPREHENSIVE METABOLIC PANEL STAT 05/18/2024 5:01 PM INSTRUCTIONAL INTERVENTIONIST CBC WITH AUTO DIFFERENTIAL STAT 05/18/2024 5:01 PM INSTRUCTIONAL INTERVENTIONIST ECG 12-LEAD Routine 05/18/2024 4:56 PM INSTRUCTIONAL INTERVENTIONIST CARDIOLOGY DOCUMENT SCAN Routine 05/08/2024 12:48 PM INSTRUCTIONAL INTERVENTIONIST CARDIOLOGY DOCUMENT SCAN Routine 05/08/2024 12:46 PM INSTRUCTIONAL INTERVENTIONIST from Last 3 Months Results * (ABNORMAL) Troponin I high-sensitivity 2-hour (05/19/2024 7:24 PM INSTRUCTIONAL INTERVENTIONIST) Trop I hs 37(H) <=35 ng/L Comment: Interpretive Data For further hscTnI resources including the diagnostic algorithm and an aid in interpretation, copy and paste this link: https://bjhlab.testcatalog.org/show/[email or web address] Current Interpretive Data last revised 2019. Trop I hs delta 2 ng/L [facility] Trop I hs interp Insignificant [facility] Blood 05/19/2024 7:24 PM INSTRUCTIONAL INTERVENTIONIST 05/19/2024 7:29 PM INSTRUCTIONAL INTERVENTIONIST us Dimitry Alvares MD LAB BLOOD ORDERABLES Final R esult [facility] Department [place] [address] * ECG 12-LEAD (05/19/2024 7:18 PM INSTRUCTIONAL INTERVENTIONIST) Narrative [facility] - 05/19/2024 7:18 PM INSTRUCTIONAL INTERVENTIONIST Gonzalo Mortensen MD ? 05/19/2024 ??7:21 PM ECG 12 lead Date/Time: 05/19/2024 7:18 PM Performed by: Gonzalo Mortensen MD Authorized by: Juanita Ac MD ?? Rate: ??ECG rate: ??89 beats per minute ??ECG rate assessment: normal ?? Rhythm: ??Rhythm: sinus rhythm ?? Ectopy: ??Ectopy: none ?? QRS: ??QRS axis: ??Normal ??QRS intervals: ??Normal Conduction: ??Conduction: normal ?? ST segments: ??ST segments: ??Normal T waves: ??T waves: non-specific ?? Previous ECG: ??Previous ECG: ??Unavailable Interpretation: ??Interpretation: non-specific ?? Recommended Follow-up: ??Recommended follow up: further workup in the ED ?? Procedure Note Gonzalo Mortensen MD - 05/19/2024 7:18 PM CST Procedure ECG 12 lead Date/Time: 05/19/2024 7:18 PM Performed by: Gonzalo Mortensen MD Authorized by: Juanita Ac MD Rate: ECG rate: 89 beats per minute ECG rate assessment: normal Rhythm: Rhythm: sinus rhythm Ectopy: Ectopy: none QRS: QRS axis: Normal QRS intervals: Normal Conduction: Conduction: normal ST segments: ST segments: Normal T waves: T waves: non-specific Previous ECG: Previous ECG: Unavailable Interpretation: Interpretation: non-specific Recommended Follow-up: Recommended follow up: further workup in the ED Gonzalo Mortenesn MD 05/19/241920 us Juanita Ac MD ECG ORDERABLES Final Resul t [facility] * Troponin I high-sensitivity series (baseline, 2hr, 4hr, 6hr) (05/19/2024 5:42 PM INSTRUCTIONAL INTERVENTIONIST) Trop I hs 35 <=35 ng/L Comment: Interpretive Data For further hscTnI resources including the diagnostic algorithm and an aid in interpretation, copy and paste this link: https://bjhlab.testcatalog.org/show/[email or web address] Current Interpretive Data last revised 2019. Blood 05/19/2024 5:42 PM INSTRUCTIONAL INTERVENTIONIST 05/19/2024 5:57 PM INSTRUCTIONAL INTERVENTIONIST us Gonzalo Mortensen MD LAB BLOOD ORDERABLES Wanda l Result [facility] Department [place] [address] * (ABNORMAL) Sepsis Lactate w/ Reflex (05/19/2024 5:42 PM INSTRUCTIONAL INTERVENTIONIST) Pathologist [facility] Sepsis Lactate 2.3(H) 0.7 - 2.0 mmol/L Blood 05/19/2024 5:42 PM INSTRUCTIONAL INTERVENTIONIST 05/19/2024 5:57 PM INSTRUCTIONAL INTERVENTIONIST us Juanita Ac MD LAB BLOOD ORDERABLES Final Result Performing Organization Address [facility] Co de Phone Number [facility] Department [place] [address] * eGFR (05/19/2024 5:42 PM INSTRUCTIONAL INTERVENTIONIST) Pathologist [facility] eGFR 88 >=60 mL/min/1. 73 m2 Comment: Interpretive Data Reference Interval Normal ?>/= 90 mL/min/1.73m2 Mildly decreased* ? 60 - 89 mL/min/1.73m2 Mildly to moderately decreased ?45 - 59 mL/min/1.73m2 Moderately to severely decreased ??30 - 44 mL/min/1.73m2 Severely decreased ?15 - 29 mL/min/1.73m2 Kidney Failure ?< 15 ??mL/min/1.73m2 *Relative to young adult level Estimated glomerular filtration rate is determined by the 2020 CKD-EPI equation recommended by the National Kidney Foundation (A Unifying Approach to GFR Estimation: Recommendations of the NKF-ASK Task Force on Reassessing the Inclusion of Race in Diagnosing Kidney Disease, JASN 2020). The CKD-EPI equation should not be used for patients with unstable renal function and has not been validated in children and those over 70. Current interpretive data was last reviewed 2021. Blood 05/19/2024 5:42 PM INSTRUCTIONAL INTERVENTIONIST 05/19/2024 5:57 PM INSTRUCTIONAL INTERVENTIONIST us Gonzalo Mortensen MD LAB BLOOD ORDERABLES Wanda elizabeth Result [facility] Department [place] [address] * (ABNORMAL) Differential, auto (05/19/2024 5:42 PM INSTRUCTIONAL INTERVENTIONIST) Neutrophil abs 7.9(H) 1.5 - 6.5 K/cumm Imm gran abs 0.0 0.0 - 0.1 K/cumm [facility] Lymphocyte abs 0.5(L) 0.8 - 3.3 K/cumm [facility] Monocyte abs 1.1(H) 0.2 - 0.8 K/cumm [facility] Eosinophil abs 0.1 0.0 - 0.5 K/cumm [facility] Basophil abs 0.1 0.0 - 0.1 K/cumm [facility] Neutrophil pct 81.2 % [facility] Comment: Interpretive Data Percent cell count reference ranges are not reported, since discordance with absolute values may lead to misinterpretation of CBC data. Current Interpretive Data was last revised on 2017. Imm gran pct 0.4 % [facility] Comment: Interpretive Data Percent cell count reference ranges are not reported, since discordance with absolute values may lead to misinterpretation of CBC data. Current Interpretive Data was last revised on 2017. Lymphocyte pct 5.4 % [facility] Comment: Interpretive Data Percent cell count reference ranges are not reported, since discordance with absolute values may lead to misinterpretation of CBC data. Current Interpretive Data was last revised on 2017. Monocyte pct 11.7 % [facility] Comment: Interpretive Data Percent cell count reference ranges are not reported, since discordance with absolute values may lead to misinterpretation of CBC data. Current Interpretive Data was last revised on 2017. Eosinophil pct 0.6 % [facility] Comment: Interpretive Data Percent cell count reference ranges are not reported, since discordance with absolute values may lead to misinterpretation of CBC data. Current Interpretive Data was last revised on 2017. Basophil pct 0.7 % [facility] Comment: Interpretive Data Percent cell count reference ranges are not reported, since discordance with absolute values may lead to misinterpretation of CBC data. Current Interpretive Data was last revised on 2017. Blood 05/19/2024 5:42 PM INSTRUCTIONAL INTERVENTIONIST 05/19/2024 5:57 PM INSTRUCTIONAL INTERVENTIONIST us Gonzalo Mortensen MD LAB BLOOD ORDERABLES Wanda johnson Result [facility] [place] [address] * (ABNORMAL) Respiratory pathogen panel Nasopharyngeal (05/19/2024 5:42 PM INSTRUCTIONAL INTERVENTIONIST) Pathologist [facility] Influenza A/H3 RNA Detected(A) Not Detected Influenza B RNA Not Detected Not Detected [facility] RSV RNA Not Detected Not Detected [facility] COVID-19 RNA Not Detected Not Detected [facility] Coronavirus 229E RNA Not Detected Not Detected [facility] Coronavirus HKU1 RNA Not Detected Not Detected [facility] Coronavirus NL63 RNA Not Detected Not Detected [facility] Coronavirus OC43 RNA Not Detected Not Detected [facility] Adenovirus DNA Not Detected Not Detected [facility] Metapneumovirus RNA Not Detected Not Detected [facility] Rhinovirus/Enterov irus RNA Not Detected Not Detected [facility] Parainfluenza 1 RNA Not Detected Not Detected [facility] Parainfluenza 2 RNA Not Detected Not Detected [facility] Parainfluenza 3 RNA Not Detected Not Detected [facility] Parainfluenza 4 RNA Not Detected Not Detected [facility] B. pertussis DNA Not Detected Not Detected [facility] B. parapertussis DNA Not Detected Not Detected [facility] C. pneumoniae DNA Not Detected Not Detected [facility] M. pneumoniae DNA Not Detected Not Detected [facility] Nasopharyngeal 05/19/2024 5: 42 PM INSTRUCTIONAL INTERVENTIONIST 05/19/2024 6:04 PM INSTRUCTIONAL INTERVENTIONIST Narrative [facility] - 05/19/2024 6:55 PM INSTRUCTIONAL INTERVENTIONIST Is the Patient experiencing symptoms consistent with COVID?->Unknown Surveillance testing for transplant patient?->No ??Interpretive Data The [employer] FilmArray Respiratory Panel (RP2.1) assay is a multiplexed real-time PCR based nucleic acid test capable of simultaneous qualitative detection and identification of multiple respiratory viral and bacterial nucleic acids, including SARS Coronavirus 2 (the causative agent of COVID-19). The following bacteria, viruses and virus subtypes can be identified using the FilmArray RP2.1 assay: Bordetella pertussis, Bordetella parapertussis, Chlamydia pneumoniae, Mycoplasma pneumoniae, Adenovirus, SARS Coronavirus 2, seasonal coronaviruses (Coronavirus HKU1, Coronavirus NL63, Coronavirus 229E, and Coronavirus OC43), Influenza A, Influenza A subtype H1, Influenza A subtype H3, Influenza A subtype 2009 H1, Influenza B, Metapneumovirus, Parainfluenza 1, Parainfluenza 2, Parainfluenza 3, Parainfluenza 4, RSV, Rhinovirus/Enterovirus. Due to the genetic similarity between human Rhinovirus and Enterovirus, the FilmArray RP2.1 assay cannot reliably differentiate them. Coronavirus OC43 may cross-react with some isolates of Coronavirus HKU1. ??A dual positive result may be due to cross-reactivity or may indicate a co-infection. The detection and identification of specific viral and bacterial nucleic acids from individuals exhibiting signs and symptoms of a respiratory infection aids in the diagnosis of respiratory infection if used in conjunction with other clinical and epidemiological information. ??The results of this test should not be used as the sole basis for diagnosis, treatment, or other management decisions. ??Negative results in the setting of a respiratory illness may be due to infection with pathogens that are not detected by this test. ??Positive results do not rule out infection/co-infection with other organisms. ??The agent(s) detected by the FilmArray RP2.1 may not be the definite cause of disease. ??Additional testing (lab, imaging, etc.) may be necessary when evaluating a patient with possible respiratory tract infection. The FilmArray RP2.1 assay has FDA clearance for testing of REVENUE OFFICER swabs. ??The performance of additional specimen types has been assessed by the performing laboratory. ??The performance characteristics of this assay have been determined by [facility] Infectious Disease Laboratory. Current interpretive data was last revised on 22. Juanita Ac MD LAB MICROBIOLOGY - GENERAL ORDERABLES Final Result Performing Organization Address [facility]/ZIP Co de Phone Number [facility] Department [place] [address] * CBC with auto differential (05/19/2024 5:42 PM INSTRUCTIONAL INTERVENTIONIST) WBC 9.8 3.8 - 9.9 K/cumm Hgb 15.8 13.0 - 17.5 g/dL [facility] Hct 47.8 38.9 - 50.3 % [facility] Plt 188 150 - 400 K/cumm [facility] MPV 9.9 9.1 - 12.3 fL [facility] RBC 5.45 4.30 - 5.80 M/cumm [facility] MCV 87.7 81.3 - 96.4 fL [facility] MCH 29.0 27.1 - 33.3 pg [facility] MCHC 33.1 32.3 - 35.7 g/dL [facility] RDW CV 13.6 11.1 - 14.9 % [facility] RDW SD 43.7 35.7 - 48.1 fL [facility] NRBC abs 0.00 0.00 - 0.01 K/cumm [facility] Blood (Blood, Venous) 05/19/2024 5:42 PM INSTRUCTIONAL INTERVENTIONIST 05/19/2024 5:57 PM INSTRUCTIONAL INTERVENTIONIST us Gonzalo Mortensen MD LAB BLOOD ORDERABLES Wanda l Result Performing Organization Address City/[facility]/ZIP Co de Phone Number [facility] Department [place] [address] * Comprehensive metabolic panel (05/19/2024 5:42 PM INSTRUCTIONAL INTERVENTIONIST) [facility] Signature Sodium 139 135 - 145 mmol/L Potassium, pl 4.1 3.3 - 4.9 mmol/L [facility] Chloride 102 97 - 110 mmol/L [facility] CO2 25 22 - 32 mmol/L [facility] Anion gap 12 2 - 15 mmol/L [facility] BUN 13 6 - 25 mg/dL [facility] Creatinine 1.06 0.80 - 1.30 mg/dL [facility] Glucose 102 70 - 199 mg/dL [facility] Comment: Interpretive Data Fasting glucose >/= 126 mg/dl is diagnostic for diabetes. ?? Fasting is defined as no caloric intake for at least 8 hours. Fasting glucose between 100 mg/dl to 125 mg/dl is diagnostic of prediabetes. In a patient with classic symptoms of hyperglycemia or hyperglycemic crisis, a random glucose >/= 200 mg/dl is diagnostic for diabetes. In the absence of unequivocal hyperglycemia, results should be confirmed by repeat testing. The classification and Diagnosis of Diabetes Diabetes Care 2021; 46: S19-S40. Current interpretive data was last revised 2022. Calcium 9.2 8.5 - 10.3 mg/dL [facility] Bilirubin, total 0.3 0.1 - 1.2 mg/dL [facility] Protein, pl 7.8 6.5 - 8.5 g/dL [facility] Albumin 4.5 3.5 - 5.0 g/dL [facility] Alk phos 76 40 - 130 Units/L [facility] ALT 30 7 - 55 Units/L [facility] AST 31 10 - 50 Units/L [facility] Blood 05/19/2024 5:42 PM INSTRUCTIONAL INTERVENTIONIST 05/19/2024 5:57 PM INSTRUCTIONAL INTERVENTIONIST us Gonzalo Mortensen MD LAB BLOOD ORDERABLES Wanda johnson Result [facility] Department [place] [address] * (ABNORMAL) Drugs of Abuse Screen, Urine with Reflex Confirmation (05/19/2024 5:19 PM INSTRUCTIONAL INTERVENTIONIST) [facility] Amphetamine, ur Screen Positive, presumptive (A) CutOff 500ng/mL Comment: Interpretive Data - Amphetamines: ??Samples containing greater than 500 ng/mL d-methamphetamine ??or other cross-reacting amphetamine compounds are reported as positive. ??Amphetamine immunoassays are subject to significant false positive rates due to cross-reactivity of non-amphetamine drugs. Confirmatory testing required for definitive results. Current Interpretive Data was last reviewed 2023. Barbiturates, ur Not Detected CutOff 200ng/mL [facility] Comment: Interpretive Data - Barbiturates: ??Samples containing greater than 200 ng/mL secobarbital or other cross-reacting barbiturate compounds are reported as positive. ??False positive and false negative results are possible. Confirmatory testing required for definitive results. Current Interpretive Data was last reviewed 2023. Benzodiazepines, ur Not Detected CutOff 100ng/mL [facility] Comment: Interpretive Data - Benzodiazepines: ??Samples containing greater than 100 ng/mL nordiazepam or other cross-reacting compounds are reported as positive. False positive and false negative results are possible. Confirmatory testing required for definitive results. Current Interpretive Data was last reviewed 2023. Cannabinoids, ur Not Detected CutOff 50 ng/mL [facility] Comment: Interpretive Data - Cannabinoids: ??Samples containing greater than 50 ng/mL delta-9 THC -COOH or other cross-reacting compounds are reported as positive. ??False positive and false negative results are possible. ??Confirmatory testing required for definitive results. Current Interpretive Data was last reviewed 2023. Cocaine, ur Not Detected CutOff 150ng/mL [facility] Comment: Interpretive Data - Cocaine: ??Samples containing greater than 150 ng/mL benzoylecgonine or other cross-reacting compounds are reported as positive. False positive and false negative results are possible. Confirmatory testing required for definitive results. Current Interpretive Data was last reviewed 2023. Fentanyl, Ur Not Detected CutOff 5 ng/mL [facility] Comment: Interpretive Data - Fentanyl: ?? Samples containing greater than 5 ng/mL norfentanyl, fentanyl, or other cross-reacting fentanyl compounds are reported as positive. False positive and false negative results are possible. Confirmatory testing required for definitive results. Current Interpretive Data was last reviewed 2023. Methadone, ur Not Detected CutOff 300ng/mL [facility] Comment: Interpretive Data - Methadone: ??Samples containing greater than 300 ng/mL d,l-methadone or other cross-reacting compounds are reported as positive. ??False positive and false negative results are possible. Confirmatory testing required for definitive results. Current Interpretive Data was last reviewed 2023. Opiates, ur Not Detected CutOff 300ng/mL [facility] Comment: Interpretive Data - Opiates: ??Samples containing greater than 300 ng/mL morphine or other cross-reacting compounds are reported as positive. ??False positive and false negative results are possible. Confirmatory testing required for definitive results. Current Interpretive Data was last reviewed 2023. Oxycodone, ur Not Detected CutOff 100ng/mL [facility] Comment: Interpretive Data - Oxycodone: ??Samples containing greater than 100 ng/mL oxycodone or other cross-reacting compounds are reported as ??positive. ??False positive and false negative results are possible. Confirmatory testing required for definitive results. Current Interpretive Data was last reviewed 2023. Phencyclidine, ur Not Detected CutOff 25 ng/mL [facility] Comment: Interpretive Data - Phencyclidine: ??Samples containing greater than 25 ng/mL phencyclidine or other cross-reacting compounds are reported as positive. ??False positive and false negative results are possible. Confirmatory testing required for definitive results. Current Interpretive Data was last reviewed 2023. Urine Creatinine 54 mg/dL [facility] Comment: Interpretive Data Urine Creatinine: < 10 mg/dL is extremely dilute = or > 10 but < 20 mg/dL is dilute = or > 20 mg/dL is normal Current Interpretive Data was last revised on 2017. Urine 05/19/2024 5:19 PM INSTRUCTIONAL INTERVENTIONIST 05/19/2024 5:25 PM INSTRUCTIONAL INTERVENTIONIST Narrative [facility] [facility] - 05/19/2024 6:17 PM INSTRUCTIONAL INTERVENTIONIST Drug of Abuse screening is performed by immunoassay for medical purposes only. ??This is not to be used for Pain Management purposes. ??If Detected, confirmation testing will be performed for Amphetamines, Cocaine, Fentanyl, Methadone, Opiates, Oxycodone or Phencyclidine. Juanita Ac MD LAB URINE ORDERABLES Final Result Performing Organization Address City/[facility]/ZIP Co de Phone Number DEANDRA [facility] Department [place] [address] * Urinalysis reflex to microscopic and culture Urine (05/19/2024 5:19 PM INSTRUCTIONAL INTERVENTIONIST) Color, ur Straw Yellow Clarity, ur Clear Clear [facility] Specific gravity, ur 1.013 1.003 - 1.030 [facility] pH, urine 5.5 [facility] Comment: Interpretive Data ? Urine pH is affected by diet, medications, systemic acid-base disturbances, and renal tubular function. ??pH may affect urinary stone formation. ??For example, urine pH below 6.0 may help reduce the tendency for calcium phosphate stones and pH greater than 6.0 may reduce the tendency for uric acid stone formation. Source: [facility] Current Interpretive Data was last revised on 2017 Protein, ur ql Negative Negative [facility] Glucose, ur ql Negative Negative [facility] Ketones, ur Negative Negative [facility] Bilirubin, ur Negative Negative [facility] Blood, ur Negative Negative [facility] Urobilinogen, ur <2.0 <2.0 mg/dL [facility] Nitrite, ur Negative Negative [facility] Leukocyte esterase, ur Negative Negative [facility] UA reflex comment Reflex conditions for microscopic UA and culture not met. [facility] Urine 05/19/2024 5:19 PM INSTRUCTIONAL INTERVENTIONIST 05/19/2024 5:25 PM INSTRUCTIONAL INTERVENTIONIST Juanita Ac MD LAB MICROBIOLOGY - GENERAL ORDERABLES Final Result [facility] Department [place] [address] * (ABNORMAL) Amphetamine Confirmation, Urine (05/19/2024 5:19 PM INSTRUCTIONAL INTERVENTIONIST) Amphetamine Conf, Ur Confirmed Positive(A) CutOff 150ng/mL Methamphetamine Conf, Ur Confirmed Positive(A) CutOff 150ng/mL CERYESSENIA HERNADEZ MDA Conf, Ur Does Not Confirm CutOff 150ng/mL CERNER SATYA MDMA Conf, Ur Does Not Confirm CutOff 50 ng/mL CERNER [facility] MDEA Conf, Ur Does Not Confirm CutOff 150ng/mL CERNER SATYA MBDB Conf, Ur Does Not Confirm CutOff 150ng/mL CERNER [facility] Comment: Interpretive Data This test detects the presence or absence of drug compounds using LC Tandem mass spectrometry. While this test is highly specific, false positive and false negative results may occur in very rare circumstances. Contact the laboratory for consultation, if needed. Performance characteristics were determined by the [facility] in a manner consistent with CLIA requirement and has not been cleared or approved by the U.S. Food and Drug Administration. Current interpretive data was last revised on 2020. Urine 05/19/2024 5:19 PM INSTRUCTIONAL INTERVENTIONIST 05/19/2024 5:25 PM INSTRUCTIONAL INTERVENTIONIST uJanita Ac MD LAB URINE ORDERABLES Final Result DEANDRA [facility] Department [place] [address] * XR Chest Pa Lateral 2 Views (05/19/2024 4:26 PM INSTRUCTIONAL INTERVENTIONIST) Anatomical Region Laterality Modality Body, Chest N/A Computed Radiogr aphy 05/19/2024 4:56 PM INSTRUCTIONAL INTERVENTIONIST Impressions 05/19/2024 5:01 PM INSTRUCTIONAL INTERVENTIONIST No pulmonary consolidation. ??No pleural effusion or pneumothorax. ??Normal cardiomediastinal mediastinal silhouette. Elevation of the right hemidiaphragm. Dictated by: Maryam Hein MD The radiology attending physician has personally reviewed this study, and had reviewed and/or edited this written report and agrees with it. Electronically signed by: Kameron Mccall MD, PHD Narrative 05/19/2024 5:01 PM INSTRUCTIONAL INTERVENTIONIST EXAMINATION: XR CHEST PA LATERAL 2 VIEWS HISTORY: chest pain COMPARISON:None Procedure Note Kameron Mccall MD PhD - 05/19/2024 EXAMINATION: XR CHEST PA LATERAL 2 VIEWS HISTORY: chest pain COMPARISON:None IMPRESSION: No pulmonary consolidation. No pleural effusion or pneumothorax. Normal cardiomediastinal mediastinal silhouette. Elevation of the right hemidiaphragm. Dictated by: Maryam Hein MD The radiology attending physician has personally reviewed this study, and had reviewed and/or edited this written report and agrees with it. Electronically signed by: Kameron Mccall MD, PHD Gonzalo Mortensen MD IMG XR PROCEDURES Final R esult * (ABNORMAL) ECG 12-LEAD (05/19/2024 3:57 PM INSTRUCTIONAL INTERVENTIONIST) Narrative MUSE [facility] - 05/19/2024 3:57 PM INSTRUCTIONAL INTERVENTIONIST Ian Chilel MD ? 05/19/2024 ??3:58 PM ECG 12 lead Date/Time: 05/19/2024 3:57 PM Performed by: Ian Chilel MD Authorized by: Dimitry Alvares MD ?? Rate: ??ECG rate: ??99 ??ECG rate assessment: normal ?? Rhythm: ??Rhythm: sinus rhythm ?? Ectopy: ??Ectopy: none ?? QRS: ??QRS axis: ??Normal Conduction: ??Conduction: normal ?? ST segments: ??ST segments: ??Abnormal ??Elevation: ??V1 and V2 T waves: ??T waves: inverted ?Inverted: ??V4, V5 and V6 Other findings: ??Other findings: early repolarization ?? Previous ECG: ??Previous ECG: ??Unavailable Interpretation: ??Interpretation: abnormal ?? Recommended Follow-up: ??Recommended follow up: cardiac workup ?? Procedure Note Ian Chilel MD - 05/19/2024 3:57 PM CST Procedure ECG 12 lead Date/Time: 05/19/2024 3:57 PM Performed by: Ian Chilel MD Authorized by: Dimitry Alvares MD Rate: ECG rate: 99 ECG rate assessment: normal Rhythm: Rhythm: sinus rhythm Ectopy: Ectopy: none QRS: QRS axis: Normal Conduction: Conduction: normal ST segments: ST segments: Abnormal Elevation: V1 and V2 T waves: T waves: inverted Inverted: V4, V5 and V6 Other findings: Other findings: early repolarization Previous ECG: Previous ECG: Unavailable Interpretation: Interpretation: abnormal Recommended Follow-up: Recommended follow up: cardiac workup Ian Chilel MD 05/19/24 1558 us Gonzalo Mortensen MD ECG ORDERABLES Final Res ult Performing Organization Address City/[facility]/ZIP Co de Phone Number [facility] * (ABNORMAL) Troponin T high-sensitivity (05/18/2024 8:32 PM INSTRUCTIONAL INTERVENTIONIST) Trop T hs 24(H) <=22 ng/L Comment: Interpretive Data For further hscTnT resources including the diagnostic algorithm and an aid in interpretation, copy and paste this link: https://nrl.testcatalog.org/show/hsTrop Current Interpretive Data last revised 2020. Blood 05/18/2024 8:32 PM INSTRUCTIONAL INTERVENTIONIST 05/18/2024 8:36 PM INSTRUCTIONAL INTERVENTIONIST Jennifer ADDISON LAB BLOOD ORDERABLES Final Resu lt Performing Organization Address [facility] Co de Phone Number [facility] [address] Department of Laboratories [place], [place] [id number] * Drugs of Abuse Screen, Urine with Reflex Confirmation (05/18/2024 8:32 PM INSTRUCTIONAL INTERVENTIONIST) Amphetamine, ur Not Detected CutOff 500ng/mL Comment: Interpretive Data - Amphetamines: ??Samples containing greater than 500 ng/mL d-methamphetamine ??or other cross-reacting amphetamine compounds are reported as positive. ??Amphetamine immunoassays are subject to significant false positive rates due to cross-reactivity of non-amphetamine drugs. Confirmatory testing required for definitive results. Current Interpretive Data was last reviewed 2023. Barbiturates, ur Not Detected CutOff 200ng/mL [facility] Comment: Interpretive Data - Barbiturates: ??Samples containing greater than 200 ng/mL secobarbital or other cross-reacting barbiturate compounds are reported as positive. ??False positive and false negative results are possible. Confirmatory testing required for definitive results. Current Interpretive Data was last reviewed 2023. Benzodiazepines, ur Not Detected CutOff 100ng/mL [facility] Comment: Interpretive Data - Benzodiazepines: ??Samples containing greater than 100 ng/mL nordiazepam or other cross-reacting compounds are reported as positive. False positive and false negative results are possible. Confirmatory testing required for definitive results. Current Interpretive Data was last reviewed 2023. Cannabinoids, ur Not Detected CutOff 50 ng/mL [facility] Comment: Interpretive Data - Cannabinoids: ??Samples containing greater than 50 ng/mL delta-9 THC -COOH or other cross-reacting compounds are reported as positive. ??False positive and false negative results are possible. ??Confirmatory testing required for definitive results. Current Interpretive Data was last reviewed 2023. Cocaine, ur Not Detected CutOff 150ng/mL [facility] Comment: Interpretive Data - Cocaine: ??Samples containing greater than 150 ng/mL benzoylecgonine or other cross-reacting compounds are reported as positive. False positive and false negative results are possible. Confirmatory testing required for definitive results. Current Interpretive Data was last reviewed 2023. Fentanyl, Ur Not Detected CutOff 5 ng/mL [facility] Comment: Interpretive Data - Fentanyl: ?? Samples containing greater than 5 ng/mL norfentanyl, fentanyl, or other cross-reacting fentanyl compounds are reported as positive. False positive and false negative results are possible. Confirmatory testing required for definitive results. Current Interpretive Data was last reviewed 2023. Methadone, ur Not Detected CutOff 300ng/mL [facility] Comment: Interpretive Data - Methadone: ??Samples containing greater than 300 ng/mL d,l-methadone or other cross-reacting compounds are reported as positive. ??False positive and false negative results are possible. Confirmatory testing required for definitive results. Current Interpretive Data was last reviewed 2023. Opiates, ur Not Detected CutOff 300ng/mL [facility] Comment: Interpretive Data - Opiates: ??Samples containing greater than 300 ng/mL morphine or other cross-reacting compounds are reported as positive. ??False positive and false negative results are possible. Confirmatory testing required for definitive results. Current Interpretive Data was last reviewed 2023. Oxycodone, ur Not Detected CutOff 100ng/mL DEANDRA Comment: Interpretive Data - Oxycodone: ??Samples containing greater than 100 ng/mL oxycodone or other cross-reacting compounds are reported as ??positive. ??False positive and false negative results are possible. Confirmatory testing required for definitive results. Current Interpretive Data was last reviewed 2023. Phencyclidine, ur Not Detected CutOff 25 ng/mL DEANDRA Comment: Interpretive Data - Phencyclidine: ??Samples containing greater than 25 ng/mL phencyclidine or other cross-reacting compounds are reported as positive. ??False positive and false negative results are possible. Confirmatory testing required for definitive results. Current Interpretive Data was last reviewed 2023. Urine Creatinine 126 mg/dL DEANDRA Comment: Interpretive Data Urine Creatinine: < 10 mg/dL is extremely dilute = or > 10 but < 20 mg/dL is dilute = or > 20 mg/dL is normal Current Interpretive Data was last revised on 2017. Urine 05/18/2024 8:32 PM INSTRUCTIONAL INTERVENTIONIST 05/18/2024 8:36 PM INSTRUCTIONAL INTERVENTIONIST Narrative [facility] - 05/18/2024 9:01 PM INSTRUCTIONAL INTERVENTIONIST Drug of Abuse screening is performed by immunoassay for medical purposes only. ??This is not to be used for Pain Management purposes. ??If Detected, confirmation testing will be performed for Amphetamines, Cocaine, Fentanyl, Methadone, Opiates, Oxycodone or Phencyclidine. us Lydia ADDISON LAB URINE ORDERABLES Final R esult [facility] [address] Department [place] [address] * Troponin T high-sensitivity series (baseline, 2hr, 4hr, 6hr) (05/18/2024 5:01 PM INSTRUCTIONAL INTERVENTIONIST) Trop T hs 22 <=22 ng/L Comment: Interpretive Data For further hscTnT resources including the diagnostic algorithm and an aid in interpretation, copy and paste this link: https://nrl.testcatalog.org/show/hsTrop Current Interpretive Data last revised 2020. Blood 05/18/2024 5:01 PM INSTRUCTIONAL INTERVENTIONIST 05/18/2024 5:05 PM INSTRUCTIONAL INTERVENTIONIST Lydia ADDISON LAB BLOOD ORDERABLES Final R esult Performing Organization Address [facility] Co de Phone Number SLOAN[address] [address] * Sepsis Lactate w/ Reflex (05/18/2024 5:01 PM INSTRUCTIONAL INTERVENTIONIST) Pathologist [facility] Sepsis Lactate 1.3 0.7 - 2.0 mmol/L Blood 05/18/2024 5:01 PM INSTRUCTIONAL INTERVENTIONIST 05/18/2024 5:04 PM INSTRUCTIONAL INTERVENTIONIST Lydia ADDISON LAB BLOOD ORDERABLES [facility] Performing Organization Address [facility] de Phone Number [address] [address] * eGFR (05/18/2024 5:01 PM INSTRUCTIONAL INTERVENTIONIST) Pathologist [facility] eGFR >90 >=60 mL/min/1. 73 m2 Comment: Interpretive Data Reference Interval Normal ?>/= 90 mL/min/1.73m2 Mildly decreased* ? 60 - 89 mL/min/1.73m2 Mildly to moderately decreased ?45 - 59 mL/min/1.73m2 Moderately to severely decreased ??30 - 44 mL/min/1.73m2 Severely decreased ?15 - 29 mL/min/1.73m2 Kidney Failure ?< 15 ??mL/min/1.73m2 *Relative to young adult level Estimated glomerular filtration rate is determined by the 2020 CKD-EPI equation recommended by the National Kidney Foundation (A Unifying Approach to GFR Estimation: Recommendations of the NKF-ASK Task Force on Reassessing the Inclusion of Race in Diagnosing Kidney Disease, JASN 2020). The CKD-EPI equation should not be used for patients with unstable renal function and has not been validated in children and those over 70. Current interpretive data was last reviewed 2021. Blood 05/18/2024 5:01 PM INSTRUCTIONAL INTERVENTIONIST 05/18/2024 5:05 PM INSTRUCTIONAL INTERVENTIONIST us Lydia ADDISON LAB BLOOD ORDERABLES Final R esult [facility] [address] Department [place] [address] * (ABNORMAL) Differential, auto (05/18/2024 5:01 PM INSTRUCTIONAL INTERVENTIONIST) Neutrophil abs 6.0 1.5 - 6.5 K/cumm Imm gran abs 0.0 0.0 - 0.1 K/cumm [facility] Lymphocyte abs 3.2 0.8 - 3.3 K/cumm [facility] Monocyte abs 1.2(H) 0.2 - 0.8 K/cumm [facility] Eosinophil abs 0.3 0.0 - 0.5 K/cumm [facility] Basophil abs 0.1 0.0 - 0.1 K/cumm [facility] Neutrophil pct 55.5 % [facility] Comment: Interpretive Data Percent cell count reference ranges are not reported, since discordance with absolute values may lead to misinterpretation of CBC data. Current Interpretive Data was last revised on 2017. Imm gran pct 0.4 % [facility] Comment: Interpretive Data Percent cell count reference ranges are not reported, since discordance with absolute values may lead to misinterpretation of CBC data. Current Interpretive Data was last revised on 2017. Lymphocyte pct 29.7 % [facility] Comment: Interpretive Data Percent cell count reference ranges are not reported, since discordance with absolute values may lead to misinterpretation of CBC data. Current Interpretive Data was last revised on 2017. Monocyte pct 10.8 % [facility] Comment: Interpretive Data Percent cell count reference ranges are not reported, since discordance with absolute values may lead to misinterpretation of CBC data. Current Interpretive Data was last revised on 2017. Eosinophil pct 2.6 % [facility] Comment: Interpretive Data Percent cell count reference ranges are not reported, since discordance with absolute values may lead to misinterpretation of CBC data. Current Interpretive Data was last revised on 2017. Basophil pct 1.0 % [facility] Comment: Interpretive Data Percent cell count reference ranges are not reported, since discordance with absolute values may lead to misinterpretation of CBC data. Current Interpretive Data was last revised on 2017. Blood 05/18/2024 5:01 PM INSTRUCTIONAL INTERVENTIONIST 05/18/2024 5:05 PM INSTRUCTIONAL INTERVENTIONIST us Lydia ADDISON LAB BLOOD ORDERABLES Final R esult [place] [id number] [place] [address] * (ABNORMAL) CBC with auto differential (05/18/2024 5:01 PM INSTRUCTIONAL INTERVENTIONIST) WBC 10.9(H) 3.8 - 9.9 K/cumm Hgb 16.1 13.0 - 17.5 g/dL [facility] Hct 48.7 38.9 - 50.3 % [facility] Plt 204 150 - 400 K/cumm [facility] MPV 9.8 9.1 - 12.3 fL [facility] RBC 5.45 4.30 - 5.80 M/cumm [facility] MCV 89.4 81.3 - 96.4 fL [facility] MCH 29.5 27.1 - 33.3 pg [facility] MCHC 33.1 32.3 - 35.7 g/dL [facility] RDW CV 13.7 11.1 - 14.9 % [facility] RDW SD 44.6 35.7 - 48.1 fL [facility] NRBC abs 0.00 0.00 - 0.01 K/cumm [facility] Blood 05/18/2024 5:01 PM INSTRUCTIONAL INTERVENTIONIST 05/18/2024 5:05 PM INSTRUCTIONAL INTERVENTIONIST Lydia ADDISON LAB BLOOD ORDERABLES Final R esult Performing Organization Address [facility] Co de Phone Number [address] [address] * Ethanol (05/18/2024 5:01 PM INSTRUCTIONAL INTERVENTIONIST) Pathologist [facility] Ethanol <10 <=10 mg/dL Comment: Interpretive Data Legal limit of intoxication > or = 80 mg/dL Levels > or = 400 mg/dL are potentially TOXIC. Current interpretive data was last revised on 2018. Blood 05/18/2024 5:01 PM INSTRUCTIONAL INTERVENTIONIST 05/18/2024 5:05 PM INSTRUCTIONAL INTERVENTIONIST Lydia ADDISON LAB BLOOD ORDERABLES Final [facility] Performing Organization Address [facility] de Phone Number [address] [address] * Comprehensive metabolic panel (05/18/2024 5:01 PM INSTRUCTIONAL INTERVENTIONIST) [facility] Sodium 139 135 - 145 mmol/L Potassium, pl 4.3 3.3 - 4.9 mmol/L [facility] Comment:Hemolyzed; Potassium value may be falsely elevated by as much as 1.0 mmol/L. Suggest redraw and reanalysis. Chloride 102 97 - 110 mmol/L [facility] CO2 26 22 - 32 mmol/L [facility] Anion gap 11 2 - 15 mmol/L [facility] BUN 24 6 - 25 mg/dL [facility] Creatinine 1.03 0.80 - 1.30 mg/dL [facility] Glucose 96 70 - 199 mg/dL [facility] Comment: Interpretive Data Fasting glucose >/= 126 mg/dl is diagnostic for diabetes. ?? Fasting is defined as no caloric intake for at least 8 hours. Fasting glucose between 100 mg/dl to 125 mg/dl is diagnostic of prediabetes. In a patient with classic symptoms of hyperglycemia or hyperglycemic crisis, a random glucose >/= 200 mg/dl is diagnostic for diabetes. In the absence of unequivocal hyperglycemia, results should be confirmed by repeat testing. The classification and Diagnosis of Diabetes Diabetes Care 2021; 46: S19-S40. Current interpretive data was last revised 2022. Calcium 9.1 8.5 - 10.3 mg/dL [facility] Bilirubin, total 0.2 0.1 - 1.2 mg/dL [facility] Protein, pl 7.0 6.5 - 8.5 g/dL [facility] Albumin 4.0 3.5 - 5.0 g/dL [facility] Alk phos 85 40 - 130 Units/L [facility] ALT 24 7 - 55 Units/L [facility] AST 28 10 - 50 Units/L [facility] Comment:Hemolyzed; result ma y be falsely elevated Blood 05/18/2024 5:01 PM INSTRUCTIONAL INTERVENTIONIST 05/18/2024 5:05 PM INSTRUCTIONAL INTERVENTIONIST Lydia ADDISON LAB BLOOD ORDERABLES Final R esult [facility] [address] Department of Laboratories [place], [place] [id number] * ECG 12 lead (05/18/2024 4:56 PM INSTRUCTIONAL INTERVENTIONIST) Ventricular Rate EKG/Min 87 BPM [facility] Atrial Rate 87 BPM [facility] NV-Interval (MSEC) 168 ms [facility] QRS-Interval (MSEC) 104 ms [facility] QT-Interval (MSEC) 378 ms [facility] QTc 454 ms [facility] P [place] 7 degrees [facility] R [place] 60 degrees [facility] T [place] -56 degrees [facility] Diagnosis Normal sinus rhythm Possible Left atrial enlargement T wave abnormality, consider inferolateral ischemia Abnormal ECG When compared with ECG of 04-NOV-2005 21:15, T wave inversion now evident in Inferior leads T wave inversion now evident in Lateral leads QT has lengthened Confirmed by MAULIK GARCÍA M.D. ([id number]) on 05/19/2024 8:22:40 PM [facility] 05/18/2024 4:56 PM INSTRUCTIONAL INTERVENTIONIST 05/19/2024 8:22 PM INSTRUCTIONAL INTERVENTIONIST us Lydia ADDISON ECG ORDERABLES Final Result [facility] * Cardiology Document Scan (05/08/2024 12:48 PM INSTRUCTIONAL INTERVENTIONIST) Anatomical Region Laterality Modality Other us Bettina Suarez MD [facility] PRO CEDURES Final Result * Cardiology Document Scan (05/08/2024 12:46 PM INSTRUCTIONAL INTERVENTIONIST) Anatomical Region Laterality Modality Other us Bettina Suarez MD CV CARDIAC SERVICES PRO CEDURES Final Result from Last 3 Months Care Teams Acupuncturist Relationship Specialty Start Date End Date Unknown, Notinfile PCP - General 05/18/24
--- OUTSIDE RECORDS SUMMARY | 2024-06-27 21:08 | XMS_ITS | Referral Summary ---
Author Organization [facility] [address] [facility] [address] Address [address] [place] [address] Care Team Providers Care Medical Services Coordinator Name Role Phone Unknown, Notinfile Primary Care Provider Unavail able Encounters Date Type Department Care Team Description 05/19/2024 4:30 PM ENDO TECH - 05/19/2024 8:17 PM [facility] Emergency [facility] Emergency Department [address] [place] [address] Gonzalo Mortensen MD Shortness of breath (Primary Dx); Opioid use disorder; Influenza Discharge Disposition: Discharge to home or self care 05/18/2024 5:01 PM ENDO TECH - 05/18/2024 10:18 PM [facility] Emergency [address] [address] Garrett Valenzuela MD Methamphetamine abuse (CMS/HCC) (HCC) (Primary Dx); Fentanyl dependence (CMS/HCC) (HCC); Left against medical advice Discharge Disposition: Left Against Medical Advice 05/13/2024 Orders Only [facility] Cardiology [address] [place] [address] Bettina Suarez MD from Last 3 Months Allergies No known active allergies Active Problems Problem Noted Date Diagnosed Date Methamphetamine abuse (CMS/HCC) 05/18/2024 Social History Tobacco Use Types Packs/Day Years Used Date Smoking Tobacco: Never Assessed Personal Safety Answer Date Recorded Have you ever been in or are you currently in a harmful physical or emotional relationship or is someone making you feel afraid or unsafe? Denies 05/19/2024 Sex and Gender Information Value Date Recorded Sex Assigned at Not on file Legal Sex Male 9:51 AM ENDO TECH Gender Identity Not on file Sexual Orientation Not on file Last Filed Vital Signs Vital Sign Reading Time Taken Comments Blood Pressure 98/59 05/19/2024 8:00 PM ENDO TECH Pulse 87 05/19/2024 8:00 PM ENDO TECH Temperature 36.8 ??C (98.2 ??F) 05/19/2024 3:54 PM CS T Respiratory Rate 20 05/19/2024 8:00 PM ENDO TECH Oxygen Saturation 98% 05/19/2024 8:00 PM ENDO TECH Inhaled Oxygen Concentration - - Weight 95.3 kg (210 lb) 05/19/2024 3:49 PM ENDO TECH Height 175.3 cm (5' 9 ) 05/19/2024 3:49 PM ENDO TECH Body Mass Index 31.01 05/19/2024 3:49 PM ENDO TECH Plan of Treatment Not on file Procedures Procedure Name Priority Date/Time Associated Diagnosis Comments TROPONIN I HIGH-SENSITIVITY 2-HOUR Timed 05/19/2024 7:24 PM ENDO TECH ECG 12-LEAD STAT 05/19/2024 7:18 PM ENDO TECH EGFR STAT 05/19/2024 5:42 PM ENDO TECH DIFFERENTIAL AUTO STAT 05/19/2024 5:4 2 PM ENDO TECH SEPSIS LACTATE WITH REFLEX STAT 05/19/2024 5:42 PM ENDO TECH TROPONIN I HIGH-SENSITIVITY SERIES (BASELINE, 2HR, 4HR, 6HR) STAT 05/19/2024 5:42 PM ENDO TECH COMPREHENSIVE METABOLIC PANEL STAT 05/19/2024 5:42 PM ENDO TECH CBC WITH AUTO DIFFERENTIAL STAT 05/19/2024 5:42 PM ENDO TECH RESPIRATORY PATHOGEN PANEL Routine 05/19/2024 5:42 PM ENDO TECH AMPHETAMINE, URINE, CONFIRMATION Routine 05/19/2024 5:19 PM ENDO TECH DRUGS OF ABUSE SCREEN, URINE WITH REFLEX CONFIRMATION Routine 05/19/2024 5:19 PM ENDO TECH URINALYSIS AND REFLEX TO MICROSCOPIC AND CULTURE STAT 05/19/2024 5:19 PM ENDO TECH XR CHEST PA LATERAL 2 VIEWS ED 05/19/2024 4:26 PM ENDO TECH ECG 12-LEAD STAT 05/19/2024 3:57 PM ENDO TECH TROPONIN T HIGH-SENSITIVITY STAT 05/18/2024 8:32 PM ENDO TECH DRUGS OF ABUSE SCREEN, URINE WITH REFLEX CONFIRMATION STAT 05/18/2024 8:32 PM ENDO TECH EGFR STAT 05/18/2024 5:01 PM ENDO TECH DIFFERENTIAL AUTO STAT 05/18/2024 5:0 1 PM ENDO TECH SEPSIS LACTATE WITH REFLEX STAT 05/18/2024 5:01 PM ENDO TECH TROPONIN T HIGH-SENSITIVITY SERIES (BASELINE, 2HR, 4HR, 6HR) STAT 05/18/2024 5:01 PM ENDO TECH ETHANOL STAT 05/18/2024 5:01 PM ENDO TECH COMPREHENSIVE METABOLIC PANEL STAT 05/18/2024 5:01 PM ENDO TECH CBC WITH AUTO DIFFERENTIAL STAT 05/18/2024 5:01 PM ENDO TECH ECG 12-LEAD Routine 05/18/2024 4:56 PM ENDO TECH CARDIOLOGY DOCUMENT SCAN Routine 05/08/2024 12:48 PM ENDO TECH CARDIOLOGY DOCUMENT SCAN Routine 05/08/2024 12:46 PM ENDO TECH from Last 3 Months Results * (ABNORMAL) Troponin I high-sensitivity 2-hour (05/19/2024 7:24 PM ENDO TECH) Trop I hs 37(H) <=35 ng/L Comment: Interpretive Data For further hscTnI resources including the diagnostic algorithm and an aid in interpretation, copy and paste this link: https://bjhlab.testcatalog.org/show/hsTrop-1 Current Interpretive Data last revised 2019. Trop I hs delta 2 ng/L [facility] Trop I hs interp Insignificant [facility] H Blood 05/19/2024 7:24 PM ENDO TECH 05/19/2024 7:29 PM ENDO TECH us Dimitry Alvares MD LAB BLOOD ORDERABLES Final R esult [facility] Department [place] [address] * ECG 12-LEAD (05/19/2024 7:18 PM ENDO TECH) Narrative [facility] - 05/19/2024 7:18 PM ENDO TECH Gonzalo Mortensen MD ? 05/19/2024 ??7:21 PM [...] up: further workup in the ED Gonzalo Mortensen MD 05/19/241920 us Juanita Ac MD ECG ORDERABLES Final Resul t Performing Organization Address City/[facility] Co de Phone Number [facility] * Troponin I high-sensitivity series (baseline, 2hr, 4hr, 6hr) (05/19/2024 5:42 PM ENDO TECH) Trop I hs 35 <=35 ng/L Comment: Interpretive Data For further hscTnI resources including the diagnostic algorithm and an aid in interpretation, copy and paste this link: https://bjhlab.testcatalog.org/show/hsTrop-1 Current Interpretive Data last revised 2019. Blood 05/19/2024 5:42 PM ENDO TECH 05/19/2024 5:57 PM ENDO TECH Gonzalo Mortensen MD LAB BLOOD ORDERABLES Wanda l Result Performing Organization Address City/[facility] Co de Phone Number [facility] Department [place] [address] * (ABNORMAL) Sepsis Lactate w/ Reflex (05/19/2024 5:42 PM ENDO TECH) Sepsis Lactate 2.3(H) 0.7 - 2.0 mmol/L Blood 05/19/2024 5:42 PM ENDO TECH 05/19/2024 5:57 PM ENDO TECH Juanita Ac MD LAB BLOOD ORDERABLES Final Result Performing Organization Address [facility] Co de Phone Number [facility] Department [place] [address] * eGFR (05/19/2024 5:42 PM ENDO TECH) [facility] eGFR 88 >=60 mL/min/1. 73 m2 Comment: [...] of Race in Diagnosing Kidney Disease, JASN 202). The CKD-EPI equation should not be used for patients with unstable renal function and has not been validated in children and those over 70. Current interpretive data was last reviewed 2021. Blood 05/19/2024 5:42 PM ENDO TECH 05/19/2024 5:57 PM ENDO TECH us Gonzalo Mortensen MD LAB BLOOD ORDERABLES Wanda l Result Performing Organization Address City/[facility]/ZIP Co de Phone Number [facility] Department [place] [address] * (ABNORMAL) Differential, auto (05/19/2024 5:42 PM ENDO TECH) Neutrophil abs 7.9(H) 1.5 - 6.5 K/cumm Imm gran abs 0.0 0.0 - 0.1 K/cumm [facility] Lymphocyte abs 0.5(L) 0.8 - 3.3 K/cumm [facility] Monocyte abs 1.1(H) 0.2 - 0.8 K/cumm [facility] Eosinophil abs 0.1 0.0 - 0.5 K/cumm [facility] Basophil abs 0.1 0.0 - 0.1 K/cumm [facility] Neutrophil pct 81.2 % [facility] Comment: Interpretive Data Percent cell count reference ranges are not reported, since discordance with absolute values may lead to misinterpretation of CBC data. Current Interpretive Data was last revised on 2017. Imm gran pct 0.4 % [facility] Comment: Interpretive Data Percent cell count reference ranges are not reported, since discordance with absolute values may lead to misinterpretation of CBC data. Current Interpretive Data was last revised on 2017. Lymphocyte pct 5.4 % [facility] Comment: Interpretive Data Percent cell count reference ranges are not reported, since discordance with absolute values may lead to misinterpretation of CBC data. Current Interpretive Data was last revised on 2017. Monocyte pct 11.7 % [facility] Comment: Interpretive Data Percent cell count reference ranges are not reported, since discordance with absolute values may lead to misinterpretation of CBC data. Current Interpretive Data was last revised on 2017. Eosinophil pct 0.6 % [facility] Comment: Interpretive Data Percent cell count reference ranges are not reported, since discordance with absolute values may lead to misinterpretation of CBC data. Current Interpretive Data was last revised on 2017. Basophil pct 0.7 % [facility] Comment: Interpretive Data Percent cell count reference ranges are not reported, since discordance with absolute values may lead to misinterpretation of CBC data. Current Interpretive Data was last revised on 2017. Blood 05/19/2024 5:42 PM ENDO TECH 05/19/2024 5:57 PM ENDO TECH Gonzalo Mortensen MD LAB BLOOD ORDERABLES Wanda johnson Result [facility] Department [place] [address] * (ABNORMAL) Respiratory pathogen panel Nasopharyngeal (05/19/2024 5:42 PM ENDO TECH) Influenza A/H3 RNA Detected(A) Not Detected Influenza B RNA Not Detected Not Detected [facility] RSV RNA Not Detected Not Detected [facility] COVID-19 RNA Not Detected Not Detected [facility] Coronavirus 229E RNA Not Detected Not Detected [facility] Coronavirus HKU1 RNA Not Detected Not Detected [facility] Coronavirus NL63 RNA Not Detected Not Detected [facility] Coronavirus OC43 RNA Not Detected Not Detected [facility] Adenovirus DNA Not Detected Not Detected [facility] Metapneumovirus RNA Not Detected Not Detected [facility] Rhinovirus/Enterov irus RNA Not Detected Not Detected [facility] Parainfluenza 1 RNA Not Detected Not Detected [facility] Parainfluenza 2 RNA Not Detected Not Detected [facility] Parainfluenza 3 RNA Not Detected Not Detected [facility] Parainfluenza 4 RNA Not Detected Not Detected [facility] B. pertussis DNA Not Detected Not Detected [facility] B. parapertussis DNA Not Detected Not Detected [facility] C. pneumoniae DNA Not Detected Not Detected [facility] M. pneumoniae DNA Not Detected Not Detected [facility] Nasopharyngeal 05/19/2024 5: 42 PM ENDO TECH 05/19/2024 6:04 PM ENDO TECH Narrative [facility] - 05/19/2024 6:55 PM ENDO TECH Is the Patient experiencing symptoms consistent with COVID?->Unknown Surveillance testing for transplant patient?->No ??Interpretive Data The [employer] FilmArray Respiratory Panel (RP2.1) assay is a [...] assay has FDA clearance for testing of PAPER SEALER swabs. ??The performance of additional specimen types has been assessed by the performing laboratory. ??The performance characteristics of this assay have been determined by [facility] Molecular Infectious Disease Laboratory. Current interpretive data was last revised on 22. us Juanita Ac MD LAB MICROBIOLOGY - GENERAL ORDERABLES Final Result [facility] Department [place] [address] * CBC with auto differential (05/19/2024 5:42 PM ENDO TECH) [facility] WBC 9.8 3.8 - 9.9 K/cumm Hgb 15.8 13.0 - 17.5 g/dL [facility] Hct 47.8 38.9 - 50.3 % [facility] Plt 188 150 - 400 K/cumm [facility] MPV 9.9 9.1 - 12.3 fL [facility] RBC 5.45 4.30 - 5.80 M/cumm [facility] MCV 87.7 81.3 - 96.4 fL [facility] MCH 29.0 27.1 - 33.3 pg [facility] MCHC 33.1 32.3 - 35.7 g/dL [facility] RDW CV 13.6 11.1 - 14.9 % [facility] RDW SD 43.7 35.7 - 48.1 fL [facility] NRBC abs 0.00 0.00 - 0.01 K/cumm [facility] Blood (Blood, Venous) 05/19/2024 5:42 PM ENDO TECH 05/19/2024 5:57 PM ENDO TECH us Gonzalo Mortensen MD LAB BLOOD ORDERABLES Wanda johnson Result [facility] Department [place] [address] * Comprehensive metabolic panel (05/19/2024 5:42 PM ENDO TECH) [facility] Sodium 139 135 - 145 mmol/L Potassium, pl 4.1 3.3 - 4.9 mmol/L [facility] Chloride 102 97 - 110 mmol/L [facility] CO2 25 22 - 32 mmol/L [facility] Anion gap 12 2 - 15 mmol/L [facility] BUN 13 6 - 25 mg/dL [facility] Creatinine 1.06 0.80 - 1.30 mg/dL [facility] Glucose 102 70 - 199 mg/dL [facility] Comment: Interpretive Data Fasting glucose [...] 2022. Calcium 9.2 8.5 - 10.3 mg/dL [facility] Bilirubin, total 0.3 0.1 - 1.2 mg/dL [facility] Protein, pl 7.8 6.5 - 8.5 g/dL [facility] Albumin 4.5 3.5 - 5.0 g/dL [facility] Alk phos 76 40 - 130 Units/L [facility] ALT 30 7 - 55 Units/L [facility] AST 31 10 - 50 Units/L [facility] Blood 05/19/2024 5:42 PM ENDO TECH 05/19/2024 5:57 PM ENDO TECH us Gonzalo Mortensen MD LAB BLOOD ORDERABLES Wanda johnson Result [facility] Department [place] [address] * (ABNORMAL) Drugs of Abuse Screen, Urine with Reflex Confirmation (05/19/2024 5:19 PM ENDO TECH) [facility] Amphetamine, ur Screen Positive, presumptive (A) CutOff 500ng/mL Comment: Interpretive Data - Amphetamines: ??Samples containing greater than 500 ng/mL d-methamphetamine ??or other cross-reacting amphetamine compounds are reported as positive. ??Amphetamine immunoassays are subject to significant false positive rates due to cross-reactivity of non-amphetamine drugs. Confirmatory testing required for definitive results. Current Interpretive Data was last reviewed 2023. Barbiturates, ur Not Detected CutOff 200ng/mL [facility] Comment: Interpretive Data - Barbiturates: ??Samples containing greater than 200 ng/mL secobarbital or other cross-reacting barbiturate compounds are reported as positive. ??False positive and false negative results are possible. Confirmatory testing required for definitive results. Current Interpretive Data was last reviewed 2023. Benzodiazepines, ur Not Detected CutOff 100ng/mL [facility] Comment: Interpretive Data - Benzodiazepines: ??Samples containing greater than 100 ng/mL nordiazepam or other cross-reacting compounds are reported as positive. False positive and false negative results are possible. Confirmatory testing required for definitive results. Current Interpretive Data was last reviewed 2023. Cannabinoids, ur Not Detected CutOff 50 ng/mL [facility] Comment: Interpretive Data - Cannabinoids: ??Samples containing greater than 50 ng/mL delta-9 THC -COOH or other cross-reacting compounds are reported as positive. ??False positive and false negative results are possible. ??Confirmatory testing required for definitive results. Current Interpretive Data was last reviewed 2023. Cocaine, ur Not Detected CutOff 150ng/mL [facility] Comment: Interpretive Data - Cocaine: ??Samples containing greater than 150 ng/mL benzoylecgonine or other cross-reacting compounds are reported as positive. False positive and false negative results are possible. Confirmatory testing required for definitive results. Current Interpretive Data was last reviewed 2023. Fentanyl, Ur Not Detected CutOff 5 ng/mL [facility] Comment: Interpretive Data - Fentanyl: ?? Samples containing greater than 5 ng/mL norfentanyl, fentanyl, or other cross-reacting fentanyl compounds are reported as positive. False positive and false negative results are possible. Confirmatory testing required for definitive results. Current Interpretive Data was last reviewed 2023. Methadone, ur Not Detected CutOff 300ng/mL [facility] Comment: Interpretive Data - Methadone: ??Samples containing greater than 300 ng/mL d,l-methadone or other cross-reacting compounds are reported as positive. ??False positive and false negative results are possible. Confirmatory testing required for definitive results. Current Interpretive Data was last reviewed 2023. Opiates, ur Not Detected CutOff 300ng/mL [facility] Comment: Interpretive Data - Opiates: ??Samples containing greater than 300 ng/mL morphine or other cross-reacting compounds are reported as positive. ??False positive and false negative results are possible. Confirmatory testing required for definitive results. Current Interpretive Data was last reviewed 2023. Oxycodone, ur Not Detected CutOff 100ng/mL [facility] Comment: Interpretive Data - Oxycodone: ??Samples containing greater than 100 ng/mL oxycodone or other cross-reacting compounds are reported as ??positive. ??False positive and false negative results are possible. Confirmatory testing required for definitive results. Current Interpretive Data was last reviewed 2023. Phencyclidine, ur Not Detected CutOff 25 ng/mL [facility] Comment: Interpretive Data - Phencyclidine: ??Samples containing greater than 25 ng/mL phencyclidine or other cross-reacting compounds are reported as positive. ??False positive and false negative results are possible. Confirmatory testing required for definitive results. Current Interpretive Data was last reviewed 2023. Urine Creatinine 54 mg/dL [facility] Comment: Interpretive Data Urine Creatinine: < 10 mg/dL is extremely dilute = or > 10 but < 20 mg/dL is dilute = or > 20 mg/dL is normal Current Interpretive Data was last revised on 2017. Urine 05/19/2024 5:1 9 PM ENDO TECH 05/19/2024 5:25 PM ENDO TECH Narrative [facility] - 05/19/2024 6:17 PM ENDO TECH Drug of Abuse screening is performed by immunoassay for medical purposes only. ??This is not to be used for Pain Management purposes. ??If Detected, confirmation testing will be performed for Amphetamines, Cocaine, Fentanyl, Methadone, Opiates, Oxycodone or Phencyclidine. Juanita Ac MD LAB URINE ORDERABLES Final Result [facility] [place] [address] * Urinalysis reflex to microscopic and culture Urine (05/19/2024 5:19 PM ENDO TECH) Color, ur Straw Yellow Clarity, ur Clear Clear [facility] Specific gravity, ur 1.013 1.003 - 1.030 [facility] pH, urine 5.5 [facility] Comment: Interpretive Data ? Urine pH is affected by diet, medications, systemic acid-base disturbances, and renal tubular function. ??pH may affect urinary stone formation. ??For example, urine pH below 6.0 may help reduce the tendency for calcium phosphate stones and pH greater than 6.0 may reduce the tendency for uric acid stone formation. Source: [facility] Current Interpretive Data was last revised on 2017 Protein, ur ql Negative Negative [facility] Glucose, ur ql Negative Negative [facility] Ketones, ur Negative Negative [facility] Bilirubin, ur Negative Negative [facility] Blood, ur Negative Negative [facility] Urobilinogen, ur <2.0 <2.0 mg/dL [facility] Nitrite, ur Negative Negative [facility] Leukocyte esterase, ur Negative Negative [facility] UA reflex comment Reflex conditions for microscopic UA and culture not met. [facility] Urine 05/19/2024 5:19 PM ENDO TECH 05/19/2024 5:25 PM ENDO TECH us Juanita Ac MD LAB MICROBIOLOGY - GENERAL ORDERABLES Final Result [facility] Department [place] [address] * (ABNORMAL) Amphetamine Confirmation, Urine (05/19/2024 5:19 PM ENDO TECH) Amphetamine Conf, Ur Confirmed Positive(A) CutOff 150ng/mL Methamphetamine Conf, Ur Confirmed Positive(A) CutOff 150ng/mL [facility] MDA Conf, Ur Does Not Confirm CutOff 150ng/mL [facility] MDMA Conf, Ur Does Not Confirm CutOff 50 ng/mL [facility] MDEA Conf, Ur Does Not Confirm CutOff 150ng/mL [facility] MBDB Conf, Ur Does Not Confirm CutOff 150ng/mL [facility] Comment: Interpretive Data This test detects the presence or absence of drug compounds using LC Tandem mass spectrometry. While this test is highly specific, false positive and false negative results may occur in very rare circumstances. Contact the laboratory for consultation, if needed. Performance characteristics were determined by the [facility] in a manner consistent with CLIA requirement and has not been cleared or approved by the U.S. Food and Drug Administration. Current interpretive data was last revised on 2020. Urine 05/19/2024 5:19 PM ENDO TECH 05/19/2024 5:25 PM ENDO TECH us Juanita Ac MD LAB URINE ORDERABLES Final Result [facility] Department [place] [address] * XR Chest Pa Lateral 2 Views (05/19/2024 4:26 PM ENDO TECH) Anatomical Region Laterality Modality Body, Chest N/A Computed Radiogr aphy 05/19/2024 4:56 PM ENDO TECH Impressions 05/19/2024 5:01 PM ENDO TECH No pulmonary consolidation. ??No pleural effusion or pneumothorax. ??Normal cardiomediastinal mediastinal silhouette. Elevation of the right hemidiaphragm. Dictated by: Maryam Hein MD The radiology attending physician has personally reviewed this study, and had reviewed and/or edited this written report and agrees with it. Electronically signed by: Kameron Mccall MD, PHD Narrative 05/19/2024 5:01 PM ENDO TECH EXAMINATION: XR CHEST PA LATERAL 2 VIEWS [...] Electronically signed by: Kameron Mccall MD, PHD us Gonzalo Mortensen MD IMG XR PROCEDURES Final R esult * (ABNORMAL) ECG 12-LEAD (05/19/2024 3:57 PM ENDO TECH) Narrative [facility] - 05/19/2024 3:57 PM ENDO TECH Ian Chilel MD ? 05/19/2024 ??3:58 PM [...] up: cardiac workup Ian Chilel MD 05/19/24 [id number] us Gonzalo Mortensen MD ECG ORDERABLES Final Res ult [facility] * (ABNORMAL) Troponin T high-sensitivity (05/18/2024 8:32 PM ENDO TECH) Trop T hs 24(H) <=22 ng/L Comment: Interpretive Data For further hscTnT resources including the diagnostic algorithm and an aid in interpretation, copy and paste this link: https://nrl.testcatalog.org/show/hsTrop Current Interpretive Data last revised 2020. Blood 05/18/2024 8:32 PM ENDO TECH 05/18/2024 8:36 PM ENDO TECH us Jennifer ADDISON LAB BLOOD ORDERABLES Final Resu lt [facility] [address] [place] [address] * Drugs of Abuse Screen, Urine with Reflex Confirmation (05/18/2024 8:32 PM ENDO TECH) Amphetamine, ur Not Detected CutOff 500ng/mL Comment: Interpretive Data - Amphetamines: ??Samples containing greater than 500 ng/mL d-methamphetamine ??or other cross-reacting amphetamine compounds are reported as positive. ??Amphetamine immunoassays are subject to significant false positive rates due to cross-reactivity of non-amphetamine drugs. Confirmatory testing required for definitive results. Current Interpretive Data was last reviewed 2023. Barbiturates, ur Not Detected CutOff 200ng/mL DEANDRA Comment: Interpretive Data - Barbiturates: ??Samples containing greater than 200 ng/mL secobarbital or other cross-reacting barbiturate compounds are reported as positive. ??False positive and false negative results are possible. Confirmatory testing required for definitive results. Current Interpretive Data was last reviewed 2023. Benzodiazepines, ur Not Detected CutOff 100ng/mL DEANDRA Comment: Interpretive Data - Benzodiazepines: ??Samples containing greater than 100 ng/mL nordiazepam or other cross-reacting compounds are reported as positive. False positive and false negative results are possible. Confirmatory testing required for definitive results. Current Interpretive Data was last reviewed 2023. Cannabinoids, ur Not Detected CutOff 50 ng/mL DEANDAR Comment: Interpretive Data - Cannabinoids: ??Samples containing greater than 50 ng/mL delta-9 THC -COOH or other cross-reacting compounds are reported as positive. ??False positive and false negative results are possible. ??Confirmatory testing required for definitive results. Current Interpretive Data was last reviewed 2023. Cocaine, ur Not Detected CutOff 150ng/mL [facility] Comment: Interpretive Data - Cocaine: ??Samples containing greater than 150 ng/mL benzoylecgonine or other cross-reacting compounds are reported as positive. False positive and false negative results are possible. Confirmatory testing required for definitive results. Current Interpretive Data was last reviewed 2023. Fentanyl, Ur Not Detected CutOff 5 ng/mL [facility] Comment: Interpretive Data - Fentanyl: ?? Samples containing greater than 5 ng/mL norfentanyl, fentanyl, or other cross-reacting fentanyl compounds are reported as positive. False positive and false negative results are possible. Confirmatory testing required for definitive results. Current Interpretive Data was last reviewed 2023. Methadone, ur Not Detected CutOff 300ng/mL [facility] Comment: Interpretive Data - Methadone: ??Samples containing greater than 300 ng/mL d,l-methadone or other cross-reacting compounds are reported as positive. ??False positive and false negative results are possible. Confirmatory testing required for definitive results. Current Interpretive Data was last reviewed 2023. Opiates, ur Not Detected CutOff 300ng/mL [facility] Comment: Interpretive Data - Opiates: ??Samples containing greater than 300 ng/mL morphine or other cross-reacting compounds are reported as positive. ??False positive and false negative results are possible. Confirmatory testing required for definitive results. Current Interpretive Data was last reviewed 2023. Oxycodone, ur Not Detected CutOff 100ng/mL [facility] Comment: Interpretive Data - Oxycodone: ??Samples containing greater than 100 ng/mL oxycodone or other cross-reacting compounds are reported as ??positive. ??False positive and false negative results are possible. Confirmatory testing required for definitive results. Current Interpretive Data was last reviewed 2023. Phencyclidine, ur Not Detected CutOff 25 ng/mL [facility] Comment: Interpretive Data - Phencyclidine: ??Samples containing [...] revised on 2017. Urine 05/18/2024 8:32 PM ENDO TECH 05/18/2024 8:36 PM ENDO TECH Narrative DEANDRA - 05/18/2024 9:01 PM ENDO TECH Drug of Abuse screening is performed by immunoassay for medical purposes only. ??This is not to be used for Pain Management purposes. ??If Detected, confirmation testing will be performed for Amphetamines, Cocaine, Fentanyl, Methadone, Opiates, Oxycodone or Phencyclidine. Lydia ADDISON LAB URINE ORDERABLES Final R esult Performing Organization Address [facility] de Phone Number [address] [place] [address] * Troponin T high-sensitivity series (baseline, 2hr, 4hr, 6hr) (05/18/2024 5:01 PM ENDO TECH) [facility] Trop T hs 22 <=22 ng/L Comment: Interpretive Data For further hscTnT resources including the diagnostic algorithm and an aid in interpretation, copy and paste this link: https://nrl.testcatalog.org/show/hsTrop Current Interpretive Data last revised 2020. Blood 05/18/2024 5:01 PM ENDO TECH 05/18/2024 5:05 PM ENDO TECH Lydia ADDISON LAB BLOOD ORDERABLES Final R esult Performing Organization Address [facility] Co de Phone Number [address] [place] [address] * Sepsis Lactate w/ Reflex (05/18/2024 5:01 PM ENDO TECH) Sepsis Lactate 1.3 0.7 - 2.0 mmol/L Blood 05/18/2024 5:01 PM ENDO TECH 05/18/2024 5:04 PM ENDO TECH us Lydia ADDISON LAB BLOOD ORDERABLES Final R esult DEANDRA [address] [place] [address] * eGFR (05/18/2024 5:01 PM ENDO TECH) Pathologist [facility] eGFR >90 >=60 mL/min/1. 73 m2 [...] last reviewed 2021. Blood 05/18/2024 5:01 PM ENDO TECH 05/18/2024 5:05 PM ENDO TECH us Lydia ADDISON LAB BLOOD ORDERABLES Final R esult DEANDRA [address] [place] [address] * (ABNORMAL) Differential, auto (05/18/2024 5:01 PM ENDO TECH) Neutrophil abs 6.0 1.5 - 6.5 K/cumm Imm gran abs 0.0 0.0 - 0.1 K/cumm [facility] Lymphocyte abs 3.2 0.8 - 3.3 K/cumm [facility] Monocyte abs 1.2(H) 0.2 - 0.8 K/cumm [facility] Eosinophil abs 0.3 0.0 - 0.5 K/cumm [facility] Basophil abs 0.1 0.0 - 0.1 K/cumm [facility] Neutrophil pct 55.5 % [facility] Comment: Interpretive Data Percent cell count reference ranges are not reported, since discordance with absolute values may lead to misinterpretation of CBC data. Current Interpretive Data was last revised on 2017. Imm gran pct 0.4 % [facility] Comment: Interpretive Data Percent cell count reference ranges are not reported, since discordance with absolute values may lead to misinterpretation of CBC data. Current Interpretive Data was last revised on 2017. Lymphocyte pct 29.7 % [facility] Comment: Interpretive Data Percent cell count reference ranges are not reported, since discordance with absolute values may lead to misinterpretation of CBC data. Current Interpretive Data was last revised on 2017. Monocyte pct 10.8 % [facility] Comment: Interpretive Data Percent cell count reference ranges are not reported, since discordance with absolute values may lead to misinterpretation of CBC data. Current Interpretive Data was last revised on 2017. Eosinophil pct 2.6 % [facility] Comment: Interpretive Data Percent cell count reference ranges are not reported, since discordance with absolute values may lead to misinterpretation of CBC data. Current Interpretive Data was last revised on 2017. Basophil pct 1.0 % [facility] Comment: Interpretive Data Percent cell count reference ranges are not reported, since discordance with absolute values may lead to misinterpretation of CBC data. Current Interpretive Data was last revised on 2017. Blood 05/18/2024 5:01 PM ENDO TECH 05/18/2024 5:05 PM ENDO TECH Lydia ADDISON LAB BLOOD ORDERABLES Final R esult Performing Organization Address City/[facility] Co de Phone Number DEANDRA [address] [employer] [place] [address] * (ABNORMAL) CBC with auto differential (05/18/2024 5:01 PM ENDO TECH) WBC 10.9(H) 3.8 - 9.9 K/cumm Hgb 16.1 13.0 - 17.5 g/dL [facility] Hct 48.7 38.9 - 50.3 % [facility] Plt 204 150 - 400 K/cumm [facility] MPV 9.8 9.1 - 12.3 fL [facility] RBC 5.45 4.30 - 5.80 M/cumm [facility] MCV 89.4 81.3 - 96.4 fL [facility] MCH 29.5 27.1 - 33.3 pg [facility] MCHC 33.1 32.3 - 35.7 g/dL [facility] RDW CV 13.7 11.1 - 14.9 % [facility] RDW SD 44.6 35.7 - 48.1 fL [facility] NRBC abs 0.00 0.00 - 0.01 K/cumm [facility] Blood 05/18/2024 5:01 PM ENDO TECH 05/18/2024 5:05 PM ENDO TECH us Lydia ADDISON LAB BLOOD ORDERABLES Final R esult Performing Organization Address City/[facility]/ZIP Co de Phone Number DEANDRA [address] [employer] [place], [place] [id number] * Ethanol (05/18/2024 5:01 PM ENDO TECH) Ethanol <10 <=10 mg/dL Comment: Interpretive Data Legal limit of intoxication > or = 80 mg/dL Levels > or = 400 mg/dL are potentially TOXIC. Current interpretive data was last revised on 2018. Blood 05/18/2024 5:01 PM ENDO TECH 05/18/2024 5:05 PM ENDO TECH Lydia ADDISON LAB BLOOD ORDERABLES Final R esult [facility] [address] Department [place] [address] * Comprehensive metabolic panel (05/18/2024 5:01 PM ENDO TECH) Sodium 139 135 - 145 mmol/L Potassium, pl 4.3 3.3 - 4.9 mmol/L [facility] Comment:Hemolyzed; Potassium value may be falsely elevated by as much as 1.0 mmol/L. Suggest redraw and reanalysis. Chloride 102 97 - 110 mmol/L [facility] CO2 26 22 - 32 mmol/L [facility] Anion gap 11 2 - 15 mmol/L [facility] BUN 24 6 - 25 mg/dL [facility] Creatinine 1.03 0.80 - 1.30 mg/dL [facility] Glucose 96 70 - 199 mg/dL [facility] Comment: Interpretive Data Fasting glucose >/= 126 [...] classification and Diagnosis of Diabetes Diabetes Care 202; 46: S19-S40. Current interpretive data was last revised 2022. Calcium 9.1 8.5 - 10.3 mg/dL [facility] Bilirubin, total 0.2 0.1 - 1.2 mg/dL [facility] Protein, pl 7.0 6.5 - 8.5 g/dL [facility] Albumin 4.0 3.5 - 5.0 g/dL [facility] Alk phos 85 40 - 130 Units/L [facility] ALT 24 7 - 55 Units/L [facility] AST 28 10 - 50 Units/L DEANDRA COELHO Comment:Hemolyzed; result ma y be falsely elevated Blood 05/18/2024 5:01 PM ENDO TECH 05/18/2024 5:05 PM ENDO TECH Lydia ADDISON LAB BLOOD ORDERABLES Final R esult Performing Organization Address City/[facility]/ZIP Co de Phone Number DEANDRA [address] Department [place] [address] * ECG 12 lead (05/18/2024 4:56 PM ENDO TECH) Ventricular Rate EKG/Min 87 BPM [facility] Atrial Rate 87 BPM [facility] FL-Interval (MSEC) 168 ms [facility] QRS-Interval (MSEC) 104 ms [facility] QT-Interval (MSEC) 378 ms [facility] QTc 454 ms [facility] P [place] 7 degrees [facility] R [place] 60 degrees [facility] T [place] -56 degrees [facility] Diagnosis Normal sinus rhythm Possible Left atrial enlargement T wave abnormality, consider inferolateral ischemia Abnormal ECG When compared with ECG of 04-NOV-2005 21:15, T wave inversion now evident in Inferior leads T wave inversion now evident in Lateral leads QT has lengthened Confirmed by MAULIK GARCÍA M.D. ([id number]) on 05/19/2024 8:22:40 PM [facility] 05/18/2024 4:56 PM ENDO TECH 05/19/2024 8:22 PM ENDO TECH us Lydia ADDISON ECG ORDERABLES Final Result Performing Organization Address City/[facility]/ZIP Co de Phone Number [facility] dough [facility] * Cardiology Document Scan (05/08/2024 12:48 PM ENDO TECH) Anatomical Region Laterality Modality Other Bettina Suarez MD [facility] PRO CEDURES Final Result * Cardiology Document Scan (05/08/2024 12:46 PM ENDO TECH) Anatomical Region Laterality Modality Other Bettina Suarez MD [facility] CARDIAC SERVICES PRO CEDURES Final Result from Last 3 Months Care Teams Medical Services Coordinator Relationship Specialty Start Date End Date Unknown, Notinfile PCP - General 05/18/24
== END 2024-06-27 10:18 | disposition home or self-care (01) ==
PROVIDERS: Internal Medicine Interventional Cardiology; Admitting Provider Internal Medicine; PCP Family Medicine; Visit Provider Internal Medicine
DX: R55 Syncope and collapse (principal); I11.0 Hypertensive heart disease with heart failure; I50.20 Unspecified systolic (congestive) heart failure; I42.8 Other cardiomyopathies; I25.2 Old myocardial infarction; F17.200 Nicotine dependence, unspecified, uncomplicated; F19.10 Other psychoactive substance abuse, uncomplicated; R56.9 Unspecified convulsions; Z79.82 Long term (current) use of aspirin; Z79.899 Other long term (current) drug therapy
CPT/HCPCS: 36415; 80053; 83735; 83880; 84100; 84484; 85025; 93880; 96372; A9270; G0378; G0379; J1650

== ENCOUNTER 2024-11-16 18:52 | Observation (INO) | payer MEDICAID, SELFPAY ==
[2024-11-16] VITALS (7 sets, daily range): BP systolic 112–126; BP diastolic 74–78; PULSE 88–99; RESP 17–21; TEMP 36.7; O2SAT 96–98; BMI 29.0
--- NOTE | ~2024-11-16 | XR_ITS ---
CHEST RADIOGRAPH, PA AND LATERAL CLINICAL HISTORY: CHEST PAIN/ PATIENT WEARING A LIFE VEST. . COMPARISON: 06/25/2024 TECHNIQUE: PA and lateral views of the chest. FINDINGS The cardiomediastinal silhouette is unremarkable. The lungs are clear. IMPRESSION: No focal infiltrate or effusion. Reviewed, dictated and finalized at location A.
--- NOTE | 2024-11-16 18:58 | ECG_ITS ---
Test Date: 2024-11-16 18:58:47 Measurements Intervals [place] Rate: 94 P: -34 AL: 161 QRS: 60 QRSD: 106 T: 25 QT: 364 QTc: 457 Interpretive Statements SINUS RHYTHM LEFT VENTRICULAR HYPERTROPHY AND ST-T CHANGE BORDERLINE ST-T WAVE ABNORMALITY- INF/HIGH LAT LEADS BORDERLINE ECG Compared to ECG 06/25/2024 20:36:43 NO SIGNIFICANT CHANGE Electronically Signed On 11-18-2024 08:32:48 CDT by Royal Bruno D.O.
--- NOTE | 2024-11-16 18:58 | ECG_ITS ---
Test Date: 2024-11-16 21:55:55 Measurements Intervals [place] Rate: 89 P: -24 CA: 173 QRS: 56 QRSD: 104 T: 14 QT: 375 QTc: 457 Interpretive Statements ECTOPIC ATRIAL RHYTHM NONSPECIFIC ST-T WAVE ABNORMALITY- INF/LAT LEADS ABNORMAL ECG Compared to ECG 06/25/2024 20:36:43 NO SIGNIFICANT CHANGE Electronically Signed On 11-17-2024 07:06:26 CDT by Royal Bruno D.O.
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
--- OUTSIDE RECORDS SUMMARY | 2024-11-16 19:21 | XMS_ITS | Clinical Summary ---
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 Gender Identity Not on file Sexual Orientation Not on file Last Filed Vital Signs Vital Sign Reading Time Taken Comments Blood Pressure 98/59 05/19/2024 8:00 PM FOLDER MACHINE Pulse 87 05/19/2024 8:00 PM FOLDER MACHINE Temperature 36.8 C (98.2 F) 05/19/2024 3:54 PM FOLDER MACHINE Respiratory Rate 20 05/19/2024 8:00 PM FOLDER MACHINE Oxygen Saturation 98% 05/19/2024 8:00 PM FOLDER MACHINE Inhaled Oxygen Concentration - - Weight 95.3 kg (210 lb) 05/19/2024 3:49 PM FOLDER MACHINE Height 175.3 cm (5' 9) 05/19/2024 3:49 PM FOLDER MACHINE Body Mass Index 31.01 05/19/2024 3:49 PM FOLDER MACHINE Plan of Treatment Health Maintenance Due Date Last Done Comments Colon Cancer Screening-Colonoscopy 1979 Depression Screening 1979 Hepatitis C Screening 1979 Hepatitis B Screening 1997 Regular Well Visit/Exam 18-64 1997 Covid-19 Vaccine (3 - 2024-2 5 season) 2024 01/16/2021, 12/26/2020 Influenza Vaccine (Season Ended) 2025 DTaP/Tdap/Td Vaccine (2 - Td or Tdap) 04/11/2033 04/11/2023 HPV Vaccines Aged Out No longer eligi ble based on patient's age to complete this topic Pneumococcal vaccine <65 Aged Out No longer eligible based on patient's age to complete this topic Insurance IDWI Care Teams Podiatric Surgeon Relationship Specialty Start Date End Date Unknown, Notinfile PCP - General 05/18/24
--- OUTSIDE RECORDS SUMMARY | 2024-11-16 19:21 | XMS_ITS | Referral Summary ---
Author Organization [facility] [address] Address [address] [place] [address] Care Team Providers Care Tack Picker Name Role Phone Unknown, Notinfile Primary Care [...] on file Legal Sex Male 9:51 AM PUPPY WALKER Gender Identity Not on file Sexual Orientation Not on file Last Filed Vital Signs Vital Sign Reading Time Taken Comments Blood Pressure 98/59 05/19/2024 8:00 PM PUPPY WALKER Pulse 87 05/19/2024 8:00 PM PUPPY WALKER Temperature 36.8 C (98.2 F) 05/19/2024 3:54 PM PUPPY WALKER Respiratory Rate 20 05/19/2024 8:00 PM PUPPY WALKER Oxygen Saturation 98% 05/19/2024 8:00 PM PUPPY WALKER Inhaled Oxygen Concentration - - Weight 95.3 kg (210 lb) 05/19/2024 3:49 PM PUPPY WALKER Height 175.3 cm (5' 9) 05/19/2024 3:49 PM PUPPY WALKER Body Mass Index 31.01 05/19/2024 3:49 PM PUPPY WALKER Plan of Treatment Not on file Insurance IDPA Care Teams Tack Picker Relationship Specialty Start Date End Date Unknown, Notinfile PCP - General 05/18/24
--- OUTSIDE RECORDS SUMMARY | 2024-11-16 19:21 | XMS_ITS | Continuity of Care Document ---
Author Organization [facility] Address [address] [place] [address] [address] [place] [address] Phone Care Team Providers Care Fitness And Wellness Manager Name Role Phone Mccabe OD, Regis Unavailable Unavailable Procedures Procedure Date Eye Exam Established Pt Advance Directives Directive Yes / No Effective Date File Name No Information Encounters Encounter Description Practice Location Reason(s) For Visit Diagnoses Date Provider Providers Copied on Encounter [facility], [address], [place], [place], [id number], [place] tel:[phone] [facility] No Information Mar-0 5-200 9 Mccabe OD Regis. [address] , [address], [place], [address], [place]. tel:[phone] Family History Family Member Type Diagnosis Age At Onset No Information Payers Payer name Insurance type Covered republican ID Authoriza titigre(s) [employer] Commercial CI [id number] Social History Type Description Quantity Date Captured Comments Sex Male Smoking Status No Information Chief Complaint And Reason For Visit No Information Reason For Referral Reason For Referral No Information History Of Present Illness Encounter Date Complaint History Of Prese nt Illness No Information Functional Status Date Functional Assessmen t No Information Instructions Date Instruction Additional Infor mation No Information Assessments Type Assessment Date No Information Patient Care Teams Name Effective Dates (start - stop) Status Members No Information
--- OUTSIDE RECORDS SUMMARY | 2024-11-16 19:21 | XMS_ITS | Continuity of Care Document ---
Author Organization [facility] Address [id number] [place] [address] Phone Care Team Providers Care Touch Up Painter Hand Name Role Phone Too Hobson MD Unavailable Unavailable Allergies, Adverse Reactions, Alerts Substance Reaction Status Criticality No Known Drug Allergies Active No I nformation Medications Medication Instructions Dosage Effective Dates (start - stop) Status Comments amoxicillin 500 mg capsule take 1 capsule by oral route 3 times every day for 7 days 500 MG - Active citalopram 20 mg tablet take 1 tablet by oral route every day 20 MG - Active buspirone 5 mg tablet take 1 tablet by oral route 3 times every day 5 MG - Active permethrin 5 % topical cream apply by topical route (thoroughly massage into skin from head to soles of feet) once leave on for 8-14 hr, then remove by thorough washing 0.00 - No Longer Active Advance Directives Directive Yes / No Effective Date File Name No Information Encounters Encounter Description Practice Location Reason(s) For Visit Diagnoses Date Provider Providers Copied on Encounter [facility], [address], [place], [address], tel:[phone] [facility] No Information Joce Gage. [address] [place] [address], [id number], . tel:[phone] [facility], [address], [place], [address], tel:[phone] [facility] No Information Joce Gage. [address] [place] [address], [address], [id number], . tel:[phone] [facility], [address], [place], [place], [address], tel:[phone] [facility] No Information Joce Gage. [address] [place] [address], [address] , [place], [place], [id number], . tel:[phone] [facility], [address], [place], [place], [address], tel:[phone] [facility] No Information Joce Gage. [address] [place] [address], [address] , [place], [place], [id number], . tel:[phone] [facility], [address], [place], [place], [address], tel:[phone] [facility] Encounter for general health examination Joce Gage. [address] [place] [address], [address] , [place], [place], [id number], . tel:[phone] Referring Provider: Too Hobson, [address] [place] [address], [place], [address]. tel:[phone] Family History Family Member Type Diagnosis Age At Onset No Information Payers Payer name Insurance type Covered libertarian ID Authoriza tion(s) No Information Social History Type Description Quantity Date Captured Comments Alcohol Use Details Unknown Caffeine Use Details Unknown Tobacco Use Status Smoking Status No Information Sex Male Chief Complaint And Reason For Visit No [...]
[2024-11-16 19:31] LABS: Basophils Absolute Auto 0.1 K/mm3 (0.0-0.1); Basophils Percent Auto 0.5 % (0.2-1.2); Eosinophils Absolute Auto 0.1 K/mm3 (0-0.3); Hematocrit 48.3 % (42.0-52.0); Hemoglobin 16.3 g/dL (14.0-18.0); Immature Granulocyte Absolute 0.07 K/mm3 (0.00-0.031); Immature Granulocyte Percent A 0.5 % (0-0.5); Lymphocytes Absolute Auto 2.39 K/mm3 (0.9-3.2); Lymphocytes Percent Auto 16.8 % (18.3-44.2); Mean Corpuscular HGB Conc 33.7 g/dl (32-36); Mean Corpuscular Hemoglobin 30.5 pg (26-34); Mean Corpuscular Volume 90.4 fl (80-100); Mean Platelet Volume 9.4 fl (7.4-10.4); Monocytes Absolute Auto 1.4 K/mm3 (0.1-0.6); Monocytes Percent Auto 10.1 % (2.6-8.5); Neutrophils Absolute Auto 10.1 K/mm3 (1.3-6.7); Neutrophils Percent Auto 71.1 % (45.5-73.1); Platelet Count Result 197 k/mm3 (150-375); Red Blood Count 5.34 M/mm3 (4.6-6.20); Red Cell Distribution Width 13.2 % (11.5-14.5); White Blood Count 14.2 K/mm3 (4.5-10.0)
[2024-11-16 19:42] LABS: Prothrombin Time 13.3 Seconds (11.1-14.7)
[2024-11-16 19:43] LABS: Partial Thromboplastin Time 27.2 Seconds (22.3-36.8)
[2024-11-16 20:01] LABS: Troponin I 0.171 ng/mL (0.000-0.034)
[2024-11-16 20:09] LABS: Alanine Aminotransferase 29 U/L (6-50); Albumin Level 4.5 g/dL (3.5-5.1); Alkaline Phosphatase 78 U/L (38-126); Anion Gap 11 mmol/L (4-12); Aspartate Amino Transferase 30 U/L (17-59); Bilirubin,Total 0.5 mg/dL (0.2-1.3); Blood Urea Nitrogen 23 mg/dL (9-20); Calcium 9.3 mg/dL (8.4-10.2); Carbon Dioxide 23 mmol/L (22-30); Chloride 105 mmol/L (98-107); Estimated CRCL calculation 94 ml/min; Estimated Glomerular Filt Rate > 60; Glucose 99 mg/dL (65-110); Lipase 68 U/L (23-300); Potassium 4.6 mmol/L (3.4-5.0); Sodium 139 mmol/L (137-145); Total Protein 8.4 g/dL (6.3-8.2)
[2024-11-16] MEDS: ONDANSETRON INJ 4 MG/2 ML VIAL IV PUSH (20:10)
[2024-11-16] MEDS: MORPHINE SULFATE (*CRX) 4 MG/ML INJ IV PUSH (20:10)
[2024-11-16 20:24] LABS: NT Pro B Type Natriuretic Pept 631 pg/mL (19.9-100)
[2024-11-16 21:27] LABS: Amphetamine Screen Urine Positive (Negative); Barbiturate Screen Urine Negative (Negative); Benzodiazepines Screen Urine Negative (Negative); Cannabinoid Screen Urine Negative (Negative); Cocaine Screen Urine Negative (Negative); Methadone Screen Urine Negative (Negative); Opiate Screen Urine Positive (Negative); Phencyclidine Screen Urine Negative (Negative)
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
[2024-11-16] MEDS: LORazepam INJ (*CRX) 2 MG/ML VIAL 0.5 MG IV PUSH (21:58)
--- NOTE | 2024-11-16 22:23 | ADMGEN ---
This patient, Salvador Weeks, was admitted to IMU Room 213-01. Patient/family oriented to hospital policies and general routines including ID bracelet, bed and alarms, visiting hours, pain management, procedures, bathroom and other care routines, personal items, smoking policy, room service/diet, and visiting hours. Information on how to activate the Rapid Response Team has been discussed. Patient/Family are encouraged to report perceived risks to care and to ask questions if they do not understand what they are told or what they should do.
[2024-11-16 22:31] LABS: Troponin I 0.126 ng/mL (0.000-0.034)
--- NOTE | 2024-11-16 23:43 | PC.NURSE ---
This patient, Salvador Weeks, was received from [facility] on 11/16/24 at 2343. Report received from DEANN Marie. Patient/family oriented to unit policies and routines.
[2024-11-17] VITALS: BP 112/73; PULSE 91; PULSE 92; RESP 20; TEMP 36.8; O2SAT 98
[2024-11-17] MEDS: LORazepam INJ (*CRX) 2 MG/ML VIAL 1 MG IV PUSH ×2 (00:06→07:56)
--- NOTE | 2024-11-17 00:06 | PC.NURSE ---
This patient, Salvador Weeks, was transferred to [icu 5 ] on 11/16/24 at 2340 for SI precautions. Personal belongings secured and transferred. Report given to [Pamela ZACARIAS ]. Appropriate documentation sent with patient.
--- NOTE | 2024-11-17 01:01 | ECG_ITS ---
Test Date: 2024-11-17 01:36:59 Measurements Intervals [place] Rate: 86 P: -17 UT: 167 QRS: 49 QRSD: 106 T: 31 QT: 383 QTc: 459 Interpretive Statements ECTOPIC ATRIAL RHYTHM RHYTHM LEFT VENTRICULAR HYPERTROPHY AND ST-T CHANGE BORDERLINE ST-T WAVE ABNORMALITY- DIFFUSE LEADS ABNORMAL ECG Compared to ECG 11/16/2024 21:55:55 NO SIGNIFICANT CHANGE Electronically Signed On 11-17-2024 07:07:04 CDT by Royal Bruno D.O.
[2024-11-17] MEDS: NICOTINE (*PBKC) 21 MG PATCH 1 PATCH TRANSDERM ×2 (01:37→07:55)
[2024-11-17 02:00] VITALS: PULSE 87
[2024-11-17 02:09] LABS: Troponin I 0.078 ng/mL (0.000-0.034)
[2024-11-17 03:51] LABS: Hematocrit 45.5 % (42.0-52.0); Hemoglobin 15.4 g/dL (14.0-18.0); Mean Corpuscular HGB Conc 33.8 g/dl (32-36); Mean Corpuscular Hemoglobin 30.9 pg (26-34); Mean Corpuscular Volume 91.2 fl (80-100); Mean Platelet Volume 9.4 fl (7.4-10.4); Platelet Count Result 184 k/mm3 (150-375); Red Blood Count 4.99 M/mm3 (4.6-6.20); Red Cell Distribution Width 13.2 % (11.5-14.5); White Blood Count 10.7 K/mm3 (4.5-10.0)
[2024-11-17 04:00] VITALS: BP 111/71; PULSE 88; RESP 20; TEMP 36.7; O2SAT 95
[2024-11-17 04:08] LABS: Anion Gap 8 mmol/L (4-12); Blood Urea Nitrogen 21 mg/dL (9-20); Calcium 8.8 mg/dL (8.4-10.2); Carbon Dioxide 26 mmol/L (22-30); Chloride 105 mmol/L (98-107); Cholesterol 143 mg/dL (0-200); Estimated CRCL calculation 83 ml/min; Estimated Glomerular Filt Rate > 60; Glucose 130 mg/dL (65-110); HDL Direct 21 mg/dL; Magnesium 2.1 mg/dL (1.6-2.3); Potassium 3.8 mmol/L (3.4-5.0); Sodium 139 mmol/L (137-145); Triglycerides 264 mg/dL (<150)
[2024-11-17 04:18] LABS: LDL Cholesterol Direct 68 mg/dL
[2024-11-17 06:00] VITALS: PULSE 87
[2024-11-17 06:24] LABS: Add Urine Microscopic? NO; Appearance Urine Clear (Clear); Bilirubin Urine Negative (Negative); Blood Urine Negative (Negative); Color Urine Yellow (Yellow); Glucose Urine UA 3+ mg/dL (Negative); Ketones Urine Negative (Negative); Leukocyte Esterase Ur Negative LEU/UL (Negative); Nitrate Urine Negative (Negative); Protein Urine Negative (Negative); Specific Grav Ur 1.041 (1.001-1.035); Urobilinogen Urine 0.2 mg/dL (<2.0); pH Urine 5.5 (5.0-9.0)
--- NOTE | 2024-11-17 07:39 | PC.NURSE ---
Gave two sets of keys to mother, patient agreed.
[2024-11-17] MEDS: SPIRONOLACTONE 25 MG TABLET PO (07:54)
[2024-11-17] MEDS: EMPAGLIFLOZIN 10 MG TABLET PO (07:54)
[2024-11-17 07:55] VITALS: PULSE 90
[2024-11-17] MEDS: LOSARTAN POTASSIUM 50 MG TABLET PO (07:55)
[2024-11-17] MEDS: carvediloL 3.125 MG TABLET PO (07:55)
[2024-11-17] MEDS: ASPIRIN 81 MG ENTERIC TABLET PO (07:55)
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
[2024-11-17 08:00] VITALS: BP 109/76; PULSE 97; PULSE 98; RESP 13; TEMP 36.6; O2SAT 96
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
--- NOTE | 2024-11-17 11:00 | PC.NURSE ---
Iv removed, discharge education and information given to and reviewed with the patient. Resources from crisis also sent with the patient. Lifevest on. [place] given to mother earlier today. Pt escorted to [place] police vehicle.
== END 2024-11-17 11:05 ==
LOC: ANHED 21:46 → ANHICU 11-17 04:52 → ANHIMU 11-18 14:10
PROVIDERS: Physician Assistant; Admitting Provider Internal Medicine; Emergency Provider Physician Assistant; PCP Family Medicine; Visit Provider Internal Medicine
DX: R07.9 Chest pain, unspecified (principal); R79.89 Other specified abnormal findings of blood chemistry; R45.851 Suicidal ideations; D72.829 Elevated white blood cell count, unspecified; I11.0 Hypertensive heart disease with heart failure; I50.20 Unspecified systolic (congestive) heart failure; F19.10 Other psychoactive substance abuse, uncomplicated; F17.210 Nicotine dependence, cigarettes, uncomplicated; I42.8 Other cardiomyopathies; I25.2 Old myocardial infarction; Z79.82 Long term (current) use of aspirin; Z79.899 Other long term (current) drug therapy; Z87.442 Personal history of urinary calculi
CPT/HCPCS: 36415; 71046; 80048; 80053; 80061; 80307; 81003; 83690; 83735; 83880; 84484; 85025; 85027; 85610; 85730; 93005; 96374; 96375; 96376; 99285; A9270; G0378; G0379; J2060; J2270; J2405